=== PATIENT | male | born 1945 | race Caucasian/White ===

== ENCOUNTER 2021-10-13 14:19 | Outpatient (REF) | payer BC, SELFPAY ==
[2021-10-13 19:03] LABS: Abs Immature Grans 0.02 10^3/uL (0.0-0.06); Absolute Basophil Count 0.05 10^3/uL (0.0-0.2); Absolute Lymphocyte Count 1.65 10^3/uL (1.2-3.4); Absolute Monocyte Count 0.59 10^3/uL (0.1-0.8); Absolute Neutrophil Count 3.81 10^3/uL (1.2-6.7); Basophils % 0.8; Eosinophils % 1.6; HCT 45.1 % (40.0-50.0); HGB 15.9 g/dL (13.5-17.5); Immature Grans % 0.3; Lymphocytes % 26.5; MCH 32.4 pg (27.0-33.0); MCHC 35.3 % (32.0-36.0); MCV 92 fL (80-95); MPV 11.1 fL (8.0-11.0); Monocytes % 9.5; Neutrophils % 61.3; Platelet Count 154 10^3/uL (130-400); RBC 4.91 10^6/uL (4.36-5.78); RDW 11.7 % (11.8-14.1); RDW-SD 39.4 fL; WBC 6.22 10^3/uL (4.4-10.8)
== END 2021-10-13 14:20 | disposition home or self-care (01) ==
LOC: NCHCN 14:19
PROVIDERS: Visit Provider Internal Medicine
DX: Z00.00 Encounter for general adult medical examination without abnormal findings (principal); K21.9 Gastro-esophageal reflux disease without esophagitis; D69.6 Thrombocytopenia, unspecified
CPT/HCPCS: 85025

== ENCOUNTER 2023-10-29 18:26 | Outpatient (REF) | payer BC, SELFPAY ==
--- OUTSIDE RECORDS SUMMARY | 2023-10-29 18:28 | XMS_ITS | Encounter Summary ---
Author Organization [facility] Address [facility] [place] [address] Care Team Providers Care Missile Facilities Repairer Name Role Phone Basilio Bates MD Primary Care Provider Reason for Visit * Reason Comments Skin Check Encounter Details Date Type Department Care Team (Late st Contact Info) Description 08/07/2023 3:30 PM EDT Office Visit Dermatology at [facility] [address] [place] [address] Rich Crespo MD [facility] [place] [address] Seborrheic keratosis; Solar lentigo; Multiple benign nevi; Foster angioma; Seborrheic keratosis, inflamed; Seborrheic dermatitis Social History Tobacco Use Types Packs/Day Years Used Date Smoking Tobacco: Former Cigarettes Smokeless Tobacco: Never Comments:quit >40 years ago Alcohol Use Standard Drinks/Week Comments No 0 (1 standard drink = 0.6 oz pur e alcohol) Sex and Gender Information Value Date Recorded Sex Assigned at Male 12/29/2020 8:49 AM EDT Gender Identity Male 11/14/2019 5:36 AM EDT Sexual Orientation Straight 12/29/2020 8: 49 AM EDT documented as of this encounter Progress Notes * Barbara Almendarez RN - 08/07/2023 3:30 PM EDT Images from the original note were not included. DEPARTMENT OF DERMATOLOGY Medical Dermatology Clinic Provider: RICH CRESPO MD Patient's preferred name Gary Preferred contact method for results []myDH []Letter [x]Phone: Home or cell Detailed phone message OK? Yes Are there any other people with whom we may discuss your care? Krista - PAST MEDICAL HISTORY If no, type N. If yes, type date, location, treatment Melanoma No Dysplastic nevi No SCC No BCC No AKs Yes UV Exposure & Protection Sun Protection: No Other relevant past medical history (i.e. eczema, psoriasis, birthmarks, immunosuppression) FAMILY HISTORY If yes, details Melanoma No NMSC No Other relevant family history No SOCIAL HISTORY Occupation: Retired Hobbies: Other: Pre-Procedure Questions Details Allergy to lidocaine, epinephrine, Dermabond, chlorhexidine, or adhesives No Bleeding disorder or blood thinners No Pacemaker, defibrillator, deep brain stimulator, cochlear implant No History of Present Illness: Basilio Duff is a 77 y.o. Patient returns to clinic today for a full skin exam and he reports - Lesion on the left leg, itchy - Ears are itchy, using dermasmooth in the ears, helps sooth but does not fully relieve the itch Last visit at Dermatology: 11/29/2022 Last visit with this provider: Visit date not found Medications: Reviewed in eD-H Allergies: Reviewed in eD-H Skin Examination: Full skin examination: Patient asked to undress to their comfort level. Verbalized that the provider???s preference is that the patient remove all clothing and that the provider will not examine areas patient elects to keep covered. Patient elects to keep underwear on and have the following examined: scalp, hair, face, ears, neck, chest, axillae, abdomen, back, and upper and lower extremities. Genitalia and buttocks were not examined. Assessment/Plan #. Benign Appearing Nevi - Multiple, 0.3-0.5cm, medium-brown, evenly-pigmented macules and papules.All with regular pigment pattern on dermoscopy. No pigmented lesions suspicious for melanoma. - Benign. No treatment necessary. - Reassured about benign nature and natural history. #. Foster Angiomas - Multiple 0.2-0.4cm bright red, well-demarcated papules - Benign. No treatment necessary. - Reassured about benign nature and natural history. #. Seborrheic Keratoses - Multiple 0.4-1 cm, brown-black papules/plaques with waxy stuck on appearance - Benign. No treatment necessary. - Reassured about benign nature and natural history. #. Solar Lentigines - Blotchy pigmentation and telangiectasia on sun-exposed skin with subtle yellowish cobblestoned appearance. - Benign. No treatment necessary. - Reassured about benign nature and natural history. - Sun avoidance, protective clothing and the use of SPF 30+ sunscreen is advised. Observe closely for skin changes and call if such occurs. #. Irritated Seborrheic Keratosis - Verrucous stuck on papule with surrounding erythema on the leftmedial thigh - Benign, but symptomatic. Procedure Note: Procedure: Destruction of lesion(s) with cryotherapy. Number: 1 Location: as above Discussed procedure and expectations including risks (including risk of hypopigmentation) and benefits. Verbal consent obtained. Frozen with LN2, 15-30 second thaw time, TWICE. There were no complications; the patient tolerated the procedure well. Post-procedure expectations and wound care were reviewed. #. Seborrheic Dermatitis, scalp & face - Discussed etiology and treatment options including topicals. - Start Rx: Triamcinolone (Kenalog) 0.1% ointment: Apply topically to affected area(s) in the ears twice daily for up to 2 weeks. Take 1 week off and then repeat cycle as needed. RTC: 1 yr for FSE []Note routed to materials engineering technician []Recall placed in scheduling system [x]Appointment scheduled at checkout Scribe attestation: Brabara Almendarez RN has performed the documentation for this encounter in the presence of and acting as a scribe for RICH CRESPO MD. I performed the above scribed service and agree with the accuracy of the documentation in this encounter. Reviewed and signed by: RICH CRESPO MD Dermatology [facility] documented in this encounter Plan of Treatment Upcoming Encounters Date Type Department Care Team (Late st Contact Info) Description 08/05/2024 4:30 PM EDT Office Visit Dermatology at [facility] [address] [place] [address] Rich Crespo MD [facility] [place] [address] documented as of this encounter Visit Diagnoses Diagnosis Seborrheic keratosis Other seborrheic keratosis Solar lentigo Other dyschromia Multiple benign nevi Benign neoplasm of skin, site unspecified Foster angioma Nevus, non-neoplastic Seborrheic keratosis, inflamed Inflamed seborrheic keratosis Seborrheic dermatitis Seborrheic dermatitis, unspecified documented in this encounter Care Teams Missile Facilities Repairer Relationship Specialty Start Date End Date Basilio Bates MD [address] [place] [id number] PCP - General General Internal Medicine 09/19/19 documented as of this encounter
--- OUTSIDE RECORDS SUMMARY | 2023-10-29 18:28 | XMS_ITS | Encounter Summary ---
Author Organization [facility] [place] [address] Care Team Providers Care Master Data Analyst Name Role Phone Basilio Bates MD Primary Care Provider Reason for Referral * Audiology Exam (Routine) - Closed Specialty Diagnoses / Procedures Referred By Connie camp Referred To Contact Audiology Diagnoses Bilateral hearing loss, unspecified hearing loss type Basilio Bates MD [address] [place] [id number] [facility] [address] [place] [phone] Referral ID Status Reason Start Date Expiration Date V isits Requested Visits Authorized [id number] Closed Specialty Service Requested 06/14/2023 06/13/2024 1 1 Encounter Details Date Type Department Care Team (Latest Contact Info) Description 06/14/2023 Transcribe Orders eDH Incoming Referrals [phone] Basilio Bates MD [address] [place], [place] [id number] Bilateral hearing loss, unspecified hearing loss type (Primary Dx) Social History Tobacco Use Types Packs/Day Years [...] AM EDT documented as of this encounter Plan of Treatment Upcoming Encounters Date Type Department Care Team (Late st Contact Info) Description 08/05/2024 4:30 PM EDT Office Visit Dermatology at [facility] [address] [place] [address] Rich Ivory MD [facility] [place] [address] Scheduled Referrals Name Type Priority Associated Diagnoses Orde r Schedule Referral to Audiology Outpatient Referral Routine Bilateral hearing loss, unspecified hearing loss type Ordered: 06/14/2023 documented as of this encounter Visit Diagnoses Diagnosis Bilateral hearing loss, unspecified hearing loss type- Primary documented in this encounter Care Teams Master Data Analyst Relationship Specialty Start Date End Date Basilio Bates MD [address] [place] [phone] PCP - General General Internal Medicine 09/19/19 documented as of this encounter
--- OUTSIDE RECORDS SUMMARY | 2023-10-29 18:28 | XMS_ITS | Encounter Summary ---
Author Organization [facility] Address [facility] [place] [address] Care Team Providers Care Caddy/Caddie Supervisor Name Role Phone Basilio Bates MD Primary Care Provider [phone] Encounter Details Date Type Department Care Team (Latest Contact Info) Description 08/21/2023 Travel Social History Tobacco Use Types Packs/Day Years [...] 4:30 PM EDT Office Visit Dermatology at [facility] [address] [place] [address] Rich Ivory MD [facility] [address] [place] [address] documented as of this encounter Visit Diagnoses Not on filedocumented in this encounter Care Teams Caddy/Caddie Supervisor Relationship Specialty Start Date End Date Basilio Bates MD [address] [place] [phone] PCP - General General Internal Medicine 09/19/19 documented as of this encounter
--- OUTSIDE RECORDS SUMMARY | 2023-10-29 18:28 | XMS_ITS | Encounter Summary ---
Author Organization [facility] [facility] [place] [address] Care Team Providers Care Lining Feller Blindstitch Name Role Phone Basilio Bates MD Primary Care Provider [phone] Reason for Visit * Auth/Cert (Routine) Specialty Diagnoses / Procedures Referred By Connie camp Referred To Contact Diagnoses Alternating constipation and diarrhea 5 year diarrhea & constipation Procedures PRO COLONOSCOPY, DIAGNOSTIC PRO COLONOSCOPY, BIOPSY PRO COLONOSCOPY, REMV LESN, SNARE PRO ANESTH, LWR INTESTINE, NOS COLONOSCOPY,SCREENING (WRVU 3.26) Nicho Kennedy MD [facility] [place] [address] [facility] Referral ID Status Reason Start Date Expiration Date Visits Re quested Visits Authorized [id number] 1 1 Encounter Details Date Type Department Care Team (Late st Contact Info) Description 01/11/2023 8:05 AM EDT Anesthesia Event [place] [phone] Nato Emerson MD [facility] [place] [address] Anesthesia Record Procedure Summary Procedure Name Responsible Anesthesiologist Anesthesia Start Time Anesthesia Stop Time COLONOSCOPY, POLYPECTOMY, REMOVAL LESION BY SNARE (WRVU 4.57) (Trunk) Nato Emerson MD 01/11/23 0801/11/23 0846 Events Date Time Event Comment 01/11/2023 0753 0805 AN Verify 0805 Start 0805 An Start Data 0809 An Induction 0809 Anesthesia Ready 0846 Stop 1657 an stop data Meds Name Total IV Lidocaine 60 mg Propofol 50 mg Propofol INF 498.39 mg lactated ringers infusion 0 mL * Agents Name O2 Air N2O O2 Auxiliary Flowmeter 1 * Blood No blood administrations on file. Lines, Drains, and Airways Type Details Placement Removal PIV 01/11/23; 0741; 22 g auge; median cubital vein (antecubital fossa), right; socorro; 01/11/23; 0943 01/11/23 0741 by Shwetha Alston RN 01/11/23 0943 by Socorro Chery RN documented in this encounter Social History Tobacco Use Types Packs/Day Years [...] AM EDT documented as of this encounter OR Notes * Anesthesia Postprocedure Evaluation - Nato Emerson MD - 01/11/2023 4:58 PM EDT Department of Anesthesiology Post-procedure Note Patient: Basilio Duff Procedure Summary Date: 01/11/23 Room / Location: [facility] 3 / [facility] Anesthesia Start: 804 Anesthesia Stop: 08 Procedures: COLONOSCOPY, POLYPECTOMY, REMOVAL LESION BY SNARE (WRVU 4.57) (Trunk) COLONOSCOPY; W CONTROL OF BLEEDING, ANY METHOD (WRVU 4.66) Diagnosis: (5 year) (diarrhea & constipation) Surgeons: Nicho Kennedy MD Responsible Provider: Nato Emerson MD Anesthesia Type: MAC ASA Status: 2 All Anesthesia Providers: Anesthesiologist: Nato Emerson MD WELDER RAILCAR MECHANIC: Nixon Villanueva CRNA Vitals Value Taken Time BP 128/106 01/11/23 0920 Temp Pulse Resp 18 01/11/23 0920 SpO2 100 % 01/11/23 0925 Pain Level 0 01/11/23 0920 Vitals shown include unfiled device data. Patient Location: PACU/[facility] Level of Consciousness: Conscious but Sleepy Pain Management: Satisfactory Analgesia PONV: None Cardiovascular Status: At Baseline Respiratory Status: At Baseline Postoperative Fluid Status: Intravascular EUvolemia Possible Anesthetic Complications: NONE apparent at time of evaluation Final Primary Anesthesia Type: MAC (The anesthetic type performed was the same as planned.) Comments: * Anesthesia Preprocedure Evaluation - Nato Emerson MD - 01/11/2023 6:47 AM EDT Pre-Anesthesia Evaluation for: Basilio Duff a 77 y.o. male. Procedure(s): COLONOSCOPY,SCREENING (WRVU 3.26) Patient Active Problem List Diagnosis Date Noted ??? Sensorineural hearing loss, asymmetrical 07/15/2014 ??? SK (seborrheic keratosis) 11/17/2010 ??? Actinic keratoses 11/16/2010 ??? Acoustic neuroma 09/05/2010 ??? SNHL (sensory-neural hearing loss), asymmetrical 09/05/2010 Past Medical History: Diagnosis Date ??? Pneumonia ??? Right acoustic neuroma ??? Skin disease Past Surgical History: Procedure Laterality Date ??? PRO COLONOSCOPY, REMV LESN, SNARE N/A 09/28/2017 COLONOSCOPY, POLYPECTOMY, REMOVAL LESION BY SNARE (WRVU 4.67) performed by Francisco Garland MD at [facility] ENDOSCOPY Social History Tobacco Use ??? Smoking status: Former Types: Cigarettes ??? Smokeless tobacco: Never ??? Tobacco comments: quit >40 years ago Substance Use Topics ??? Alcohol use: No Social History Substance and Sexual Activity Drug Use No Allergies Allergen Reactions ??? Other [Unclassified Drug] Tree's in the spring Medications: MAR and/or home medications have been reviewed. Physical Exam: Preprocedure Vitals Current as of 01/11/23 0647 No BP, pulse, respiration, SpO2, or temperature recorded. Height: Weight: BMI: IBW: Airway Assessment: Mallampati: II TM distance: <3 FB Neck ROM: full Cardiovascular Assessment: Rhythm: regular Rate: normal Pulmonary Assessment: breath sounds clear to auscultation Dental Assessment: - normal exam Misc Assessment: Last Filed Perioperative Cognitive Screening None Anesthesia Plan: ASA 2 MAC, with a(n) intravenous induction Addendum 01/11/2023 (MD Idania): 77yo for colo. SAVANNA (CPAP). No interval change. Risks/plan reviewed. Pt requests to proceed Region - Other Informed Consent: Anesthetic plan and risks discussed with patient and spouse. Plan discussed with WELDER RAILCAR MECHANIC. Anesthesia Screening documented in this encounter Plan of Treatment Upcoming Encounters Date Type Department Care Team (Late st Contact Info) Description 08/05/2024 4:30 PM EDT Office Visit Dermatology at [address] [place] [address] Rich Ivory MD [facility] [address] [place] [address] documented as of this encounter Visit Diagnoses Not on filedocumented in this encounter Administered Medications Inactive Administered Medications - up to 3 most recent administrations Medication Order MAR Action Action Date Dose Rate Site lactated ringers infusion 100 mL/hr, Intravenous, CONTINUOUS, Starting on Anahy 01/11/23 at 0800, Until Anahy 01/11/23 at 0942, Endoscopy (Day of Procedure) Restarted 01/11/2023 8:09 AM EDT New Bag 01/11/2023 7:41 AM EDT 100 mL/hr 100 mL/hr lidocaine (pf) (Xylocaine) (20 mg/mL) 2% injection syringe Intravenous, PRN, Starting on Anahy 01/11/23 at 0809, Until Anahy 01/11/23 at 1658, Anesthesia Intra-op, Routine Given 01/11/2023 8:09 AM EDT 60 mg propofoL (Diprivan) (10 mg/mL) infusion Intravenous, CONTINUOUS PRN, Starting on Anahy 01/11/23 at 0809, Until Anahy 01/11/23 at 1658, Anesthesia Intra-op, Routine New Bag 01/11/2023 8:09 AM EDT 150 mcg/kg/min 80.82 mL/hr propofoL (Diprivan) 10 mg/mL bolus injection (Anesthesia) Intravenous, PRN, Starting on Anahy 01/11/23 at 0809, Until Anahy 01/11/23 at 1658, Anesthesia Intra-op Given 01/11/2023 8:09 AM EDT 50 mg documented in this encounter Care Teams Lining Feller Blindstitch Relationship Specialty Start Date End Date Basilio Bates MD [address] [place] [id number] PCP - General General Internal Medicine 09/19/19 documented as of this encounter
--- OUTSIDE RECORDS SUMMARY | 2023-10-29 18:28 | XMS_ITS | Encounter Summary ---
Author Organization [facility] Address [facility] [place] [address] Care Team Providers Care Retread Technician Name Role Phone Basilio Bates MD Primary Care Provider [phone] Encounter Details Date Type Department Care Team (Latest Contact Info) Description 08/14/2023 Travel Social History Tobacco Use Types Packs/Day [...] 4:30 PM EDT Office Visit Dermatology at [facility] [address] [place] [address] Rich Ivory MD [facility] [place] [address] documented as of this encounter Visit Diagnoses Not on filedocumented in this encounter Care Teams Retread Technician Relationship Specialty Start Date End Date Basilio Bates MD [address] [place] [phone] PCP - General General Internal Medicine 09/19/19 documented as of this encounter
--- OUTSIDE RECORDS SUMMARY | 2023-10-29 18:28 | XMS_ITS | Clinical Summary ---
Author Organization [facility] [place] [address] Care Team Providers Care Ict Systems Test Engineer Name Role Phone Basilio Bates MD Primary Care Provider Allergies Active Allergy Reactions Criticality Noted Date Comments Unclassified Drug 06/25/2015 Tree's in the spring Medications Medication Sig Dispensed Refills Start Date End Date Status aspirin 325 mg tablet Take 325 mg by mouth daily. Active multivitamin (THERAGRAN) Tablet Take 1 tablet by mouth daily. Active tacrolimus (PROTOPIC) 0.1 % Ointment Apply topically 1-2 times daily to affected areas 100 g 12/02/2017 Active fluocinolone (DERMA-SMOOTHE) 0.01 % OilIndications:Scalp psoriasis Apply topically to the scalp nightly as needed 120 mL 07/11/2018 Active atorvastatin (LIPITOR) 20 mg Tablet TK 1 T PO QD 3 07/08/2018 Active triamcinolone (Kenalog) 0.1 % Ointment Apply topically to affected area(s) in the ears twice daily for up to 2 weeks. Take 1 week off and then repeat cycle as needed. 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 SNHL (sensory-neural hearing loss), asymmetrical 09/05/2010 Encounters Date Type Department Care Team Description 09/10/2023 10:30 AM EDT Office Visit Audiology at [address] [address] Amparo Ma, HALEIGH Asymmetric SNHL (sensorineural hearing loss) 09/10/2023 9:30 AM EDT Office Visit Audiology at [address] [phone] Jacqueline Estevez, PhD Asymmetric SNHL (sensorineural hearing loss); Negative pressure of left middle ear with type C tympanogram curve 09/10/2023 Travel 09/03/2023 Travel 08/21/2023 2:15 PM EDT [place] [phone] Beny Smith MD Glaucoma suspect of both eyes; Nuclear sclerotic cataract of both eyes 08/21/2023 Travel 08/14/2023 Travel 08/07/2023 3:30 PM EDT Office Visit Dermatology at [facility] [address] [place] [phone] Rich Ivory MD Seborrheic keratosis; Solar lentigo; Multiple benign nevi; Foster angioma; Seborrheic keratosis, inflamed; Seborrheic dermatitis 08/07/2023 Travel 08/01/2023 Travel from Last 3 Months Immunizations Name Administration Dates Next Due Hepatitis A, Unspecified Formulation 11/17/2008 Typhoid Live, Oral 11/17/2008 Family History Relation Status Comments Daughter Other Amblyopia (left eye?) Social History Tobacco Use Types Packs/Day Years [...] Orientation Straight 12/29/2020 8: 49 AM EDT Last Filed Vital Signs Vital Sign Reading Time Taken Comments Blood Pressure 128/106 01/11/2023 9:20 AM EDT Pulse 76 01/11/2023 7:33 AM EDT Temperature 36.4 ??C (97.5 ??F) 01/11/2023 7:33 AM ED T Respiratory Rate 18 01/11/2023 9:20 AM EDT Oxygen Saturation 100% 01/11/2023 9:20 AM EDT Inhaled Oxygen Concentration - - Weight 89.8 kg (198 lb) 01/11/2023 7:33 AM EDT Height 177.8 cm (5' 10) 01/11/2023 7:33 AM EDT Body Mass Index 28.41 01/11/2023 7:33 AM EDT Plan of Treatment Upcoming Encounters Date Type Department Care Team (Late st Contact Info) Description 08/05/2024 4:30 PM EDT Office Visit Dermatology at [facility] [address] [place] [address] Rich Ivory MD [facility] [place] [address] Health Maintenance Due Date Last Done Comments CT Colonography 1945 FIT DNA 1945 FIT 1945 Sigmoidoscopy 1945 Hepatitis C Screening 1964 Tdap adult 1965 Tetanus vaccine 1965 Zoster vaccine (1 of 2) 1996 Advance Directive 2001 Pneumoccocal Vaccine: 65+ (1 of 1 - PCV) 12/23/2011 Covid-19 Vaccine ( - 2022-2 4 season) 2022 Influenza (Flu) vaccine (1 o f 1 - Influenza standard series) 11/25/2023 Colonoscopy 01/12/2028 01/11/2023, 12/24, 01/11/2023, Additional history exists Colorectal Cancer Screening 01/12/2028 Sigmoidoscopy (10 year) with FIT yearly 01/11/2033 01/11/2023, 01/11/2023, 01/11/2023, Additional history exists Medical Devices Implanted Type Area Wire Frame Dipper Device Identifier Shelf Expiration Date Model / Serial / Lot Clip [id number] Endoscopic Ligation Resolution 360 Each ([id number]) - [id number] Implanted:Qty : 3 on 01/11/2023 by Nicho Kennedy MD at [facility] IMPLANTS Transverse Colon [employer] - BRACE INTE [id number] / / Procedures Procedure Name Priority Date/Time Associated Diagnosis Comments COMPREHENSIVE HEARING TEST Routine 09/10/2023 9:25 AM EDT OCT OPTIC NERVE - OU - BOTH EYES Routine 08/21/2023 3:09 PM EDT Glaucoma suspect of both eyes COLONOSCOPY Routine 01/11/2023 7:59 AM EDT from Last 3 Months or Most Recently Relevant to Health Maintenance Results * Comprehensive hearing test (09/10/2023 9:25 AM EDT) 09/10/2023 9:25 AM EDT Narrative AUDBASE COMP - 09/10/2023 9:25 AM EDT Audiologic monitoring of this hearing loss. Hearing aid management with primary Garage Hand Haleigh Lopez Procedure Note Unknown - 09/10/2023 Audiologic monitoring of this hearing loss. Hearing aid management with primary Garage Hand Haleigh Lopez Jacqueline Estevez PhD AUDIOLOGY SERVICES ORDERABLES AUDBASE COMP * Oct Optic Nerve - OU - Both Eyes (08/21/2023 3:09 PM EDT) Anatomical Region Laterality Modality Other Narrative 08/21/2023 3:09 PM EDT Right Eye Quality was good. Left Eye Quality was good. Notes Optic nerve report G = 76 OD G = 82 OS Borderline OD Within normal limits OS Interpretation: abnormal OD/borderline OS Beny Smith MD OPHTHALMOLOGY SERVIC ES ORDERABLES * COLONOSCOPY (01/11/2023 7:59 AM EDT) Pathologist [facility] COLONOSCOPY [facility] Procedure Date: 01/11/2023 7:59 AM ? Patient Name: Basilio Duff ? Date of : 1945 ? Age: 77 ? Order #: [id number] ? Instrument Name: [id number] ? Procedure: ? Colonoscopy Indications: ? High risk colon cancer ? surveillance: Personal history of ? small colonic polyps, New c Providers: ? Nicho Kennedy, Amparo Olivares, ? Jose De Jesus Bailey RN, Gagan Garcia MD: ?Basilio Bates MD Medicines: ? Monitored Anesthesia Care Complications: ? No immediate complications. Procedure: ? Pre-Anesthesia Assessment: ? - Prior to the procedure, a History ? and Physical was performed, and ? patient medications, allergies and ? sensitivities were reviewed. The ? patient's tolerance of previous ? anesthesia was reviewed. ? - The risks and benefits of the ? procedure and the sedation options ? and risks were discussed with the ? patient. All questions were ? answered and informed consent was ? obtained. ? - Patient identification and ? proposed procedure were verified ? prior to the procedure by the ? physician, the nurse, the ? bond broker and the technician's helper. The ? procedure was verified in the ? pre-procedure area in the endoscopy ? suite. ? - Pre-procedure physical ? examination revealed no ? contraindications to sedation. ? - ASA Grade Assessment: III - A ? patient with severe systemic ? disease. ? - After reviewing the risks and ? benefits, the patient was deemed in ? satisfactory condition to undergo ? the procedure. ? - Monitored anesthesia care under ? the supervision of a HUMAN CAPITAL ANALYST was ? determined to be medically ? necessary for this procedure based ? on age 65 or older and severe ? comorbidity (greater than ASA Grade ? II). ? The procedure, indications, ? benefits, risks and alternatives ? were explained to the patient. ? Specifically discussed were ? potential complications including, ? but not limited to, bleeding, ? perforation, infection, missing a ? cancer, and adverse medication ? reactions. The patient was placed ? in the left lateral decubitus ? position, and a digital rectal exam ? was performed. The Colonoscope was ? inserted in the anus and under ? direct visualization, advanced to ? the terminal ileum. Careful ? inspection was made as the ? colonoscope was withdrawn. The ? colonoscopy was performed without ? difficulty. The patient tolerated ? the procedure well. The quality of ? the bowel preparation was evaluated ? using the BBPS (Hurst Bowel ? Preparation Scale) with scores of: ? Right Colon = 3 (entire mucosa seen ? well with no residual staining, ? small fragments of stool or opaque ? liquid), Transverse Colon = 3 ? (entire mucosa seen well with no ? residual staining, small fragments ? of stool or opaque liquid) and Left ? Colon = 3 (entire mucosa seen well ? with no residual staining, small ? fragments of stool or opaque ? liquid). The total BBPS score ? equals 9. The quality of the bowel ? preparation was excellent. Scope ? withdrawal time was 12 minutes. ? Findings: ? The terminal ileum appeared normal. ? A 4 mm polyp was found in the transverse colon. The ? polyp was Bonnie classification IIa (superficial, ? elevated). The polyp was removed with a cold snare. ? Resection and retrieval were complete. There was mild ? persistent oozing after polypectomy, likely due to ? full dose aspirin use. To stop bleeding after the ? polypectomy, three hemostatic clips were successfully ? placed (MR conditional). Clip masonry installer: [employer]. There was no bleeding at the end of the ? procedure. ? A few small-mouthed diverticula were found in the ? sigmoid colon. ? Internal hemorrhoids were found during retroflexion. ? The hemorrhoids were small. ? Moderate Sedation: ? Not applicable - See Anesthesia documentation Impression: ?- The examined portion of the ileum ? was normal. ? - One 4 mm polyp in the transverse ? colon, removed with a cold snare. ? Resected and retrieved. Clips (MR ? conditional) were placed. Clip ? masonry installer: [employer]. ? - Diverticulosis in the sigmoid ? colon. ? - Internal hemorrhoids. Recommendation: ?- Await polyp pathology results. ? - OK to continue full-dose aspirin. ? Monitor for post-polypectomy ? bleeding. ? - Next surveillance exam would be ? due at age 84 - 87. Revisit role ? for further colonoscopies pending ? overall health status at that time. ? Attending Participation: ? I personally performed the entire procedure. ? Nicho Kennedy, 01/11/2023 8:50:23 AM Number of Addenda: 0 Note Initiated On: 01/11/2023 7:59 AM PROVATION 01/11/2023 7:59 AM EDT Basilio Bates MD GENERAL SURGICAL ORD ERABLES PROVATION from Last 3 Months or Most Recently Relevant to Health Maintenance Care Teams Ict Systems Test Engineer Relationship Specialty Start Date End Date Basilio Bates MD [address] [place] [address] PCP - General General Internal Medicine 09/19/19
--- OUTSIDE RECORDS SUMMARY | 2023-10-29 18:28 | XMS_ITS | Encounter Summary ---
Author Organization [facility] Address [facility] [place] [address] Care Team Providers Care Health Informatics Advisor Name Role Phone Basilio Bates MD Primary Care Provider Encounter Details Date Type Department Care Team (Latest Contact Info) Description 08/01/2023 Travel Social History Tobacco Use Types Packs/Day [...] 4:30 PM EDT Office Visit Dermatology at [facility] [address] [place] [address] Rich Ivory MD [facility] [address] [place] [address] documented as of this encounter Visit Diagnoses Not on filedocumented in this encounter Care Teams Health Informatics Advisor Relationship Specialty Start Date End Date Basilio Bates MD [address] [place] [address] PCP - General General Internal Medicine 09/19/19 documented as of this encounter
--- OUTSIDE RECORDS SUMMARY | 2023-10-29 18:28 | XMS_ITS | Encounter Summary ---
Author Organization [facility] Address [facility] [place] [address] Care Team Providers Care Stereoptician Name Role Phone Basilio Bates MD Primary Care Provider [phone] Encounter Details Date Type Department Care Team (Latest Contact Info) Description 09/10/2023 Travel Social History Tobacco Use Types Packs/Day [...] 4:30 PM EDT Office Visit Dermatology at [facility] [address] [place] [address] Rich Ivory MD [facility] [address] [address] documented as of this encounter Visit Diagnoses Not on filedocumented in this encounter Care Teams Stereoptician Relationship Specialty Start Date End Date Basilio Bates MD [address] [place] [address] PCP - General General Internal Medicine 09/19/19 documented as of this encounter
--- OUTSIDE RECORDS SUMMARY | 2023-10-29 18:28 | XMS_ITS | Encounter Summary ---
[place] [address] Care Team Providers Care Escort Patients Name Role Phone Basilio Bates MD Primary Care Provider [phone] Encounter Details Date Type Department Care Team (Late st Contact Info) Description 09/10/2023 10:30 AM EDT Office Visit Audiology at [address] [address] Amparo Ma AUD [facility] [place] [address] Asymmetric SNHL (sensorineural hearing loss) Social History Tobacco Use Types Packs/Day Years [...] as of this encounter Progress Notes * Amparo Ma AUD - 09/10/2023 10:30 AM EDT AUDIOLOGY Basilio Duff was seen today for a hearing aid check following a hearing re- evaluation. History ispositive for asymmetric sensorineural hearing loss. Please refer to the audiogram and associated note for details on otologic symptoms and hearing test results. Mr. Duff reported that the hearing instruments are working great. Understanding speech in background noise can be challenging. The following actions were taken: Otoscopy showed clear ear canals bilaterally. Both devices were cleaned and a listening check indicated that they were functioning. Domes and waxfilters were replaced. Hearing aid programming was adjusted so that the aided responses approximated prescriptive targets for speech without exceeding MPO targets. Mr. Duff was subjectively satisfied with the sound quality of the aid, and loudness discomfort was denied. Simulated real ear measures were obtained and function of the directional microphones was verified. The limitations of hearing aids in background noise were discussed. The benefits of an assistive listening device such as a Phonak Vinayak On iN 2 for improving speech understanding in noisy environments, in rooms with poor acoustics and when listening to speech from a distance were discussed. Mr. Duff will check his insurance to find out if there is coverage for this type of accessory. RECOMMENDATIONS Annual hearing evaluation and hearing aid check, sooner if concerns arise in the interim. Helene Lopez [place] [address] ; AMPLIFICATION EQUIPMENT LIST: HEARING AID RIGHT LEFT Make/Model/Style Phonak CROS P 13 Phonak Audeo P90 13 Casing Color Silver Silver Serial Number [id number] Battery Size 13 13 Invoice number/date [id number] 07/22/2021 [id number] 07/22/2021 Other Comments PROGRAM/SETTINGS Fitting Algorithm DSL-Adult DSL-Adult Verification Method REM REM SII (w/65 dBSLP) unaided/aided Programs Autosense OS Other Comments >active features: CROS Volume >disabled features: >active features: VC >disabled features: [place] WARRANTY Original Fit Date 08/09/2021 08/09/2021 Current Status 10/19/2024 10/19/2024 EARMOLD (if BTE JOHNSON) Lab Earmold / Slim tube / LORE / Dome specifics #1 CROS tube, medium open dome #1M 5 director of marketing communications/ small vented dome Impression Date Invoice number/date Other Comments Cerustop wax guard ACCESSORIES Make/Model (color) Serial Number Warranty date Invoice number/date Settings Other Comments documented in this encounter Plan of Treatment Upcoming Encounters Date Type Department Care Team (Late st Contact Info) Description 08/05/2024 4:30 PM EDT Office Visit Dermatology at [address] [place] [address] Rich Ivory MD [facility] [place] [address] documented as of this encounter Visit Diagnoses Diagnosis Asymmetric SNHL (sensorineural hearing loss) Sensorineural hearing loss, asymmetrical documented in this encounter Care Teams Escort Patients Relationship Specialty Start Date End Date Basilio Bates MD [address] [place] [address] PCP - General General Internal Medicine 09/19/19 documented as of this encounter
--- OUTSIDE RECORDS SUMMARY | 2023-10-29 18:28 | XMS_ITS | Encounter Summary ---
Author Organization [facility] Address [facility] [place] [address] Care Team Providers Care Farm Agent Name Role Phone Basilio Bates MD Primary Care Provider Encounter Details Date Type Department Care Team (Latest Contact Info) Description 08/07/2023 Travel Social History Tobacco Use Types Packs/Day [...] 4:30 PM EDT Office Visit Dermatology at [facility] [address] [place] [address] Rich Ivory MD [facility] [place] [address] documented as of this encounter Visit Diagnoses Not on filedocumented in this encounter Care Teams Farm Agent Relationship Specialty Start Date End Date Basilio Bates MD [address] [place] [address] PCP - General General Internal Medicine 09/19/19 documented as of this encounter
--- OUTSIDE RECORDS SUMMARY | 2023-10-29 18:28 | XMS_ITS | Encounter Summary ---
[place] [address] Care Team Providers Care Senior Advocate Name Role Phone Basilio Bates MD Primary Care Provider [phone] Reason for Visit * Reason Comments Glaucoma Suspect Cataract Encounter Details Date Type Department Care Team (Late st Contact Info) Description 08/21/2023 2:15 PM EDT Office [place] [address] Beny Smith MD [facility] [place] [address] Glaucoma suspect of both eyes; Nuclear sclerotic cataract of both eyes Social History Tobacco Use Types Packs/Day Years [...] as of this encounter Progress Notes * Beny Smith MD - 08/21/2023 2:15 PM EDT BRAO OD: stale exam Cataract OU: Early nuclear sclerosis OU with mild symptoms. Plan: Will continue yearly follow up, see in one year for HVF OU, Nellie Fast. documented in this encounter Plan of Treatment Upcoming Encounters Date Type Department Care Team (Late st Contact Info) Description 08/05/2024 4:30 PM EDT Office Visit Dermatology at [facility] [address] [place] [address] Rich Ivory MD [facility] [address] [address] documented as of this encounter Procedures Procedure Name Priority Date/Time Associated Diagnosis Comments OCT OPTIC NERVE - OU - BOTH EYES Routine 08/21/2023 3:09 PM EDT Glaucoma suspect of both eyes documented in this encounter Results * Oct Optic Nerve - OU - Both Eyes (08/21/2023 3:09 PM EDT) Anatomical Region Laterality Modality Other Narrative 08/21/2023 3:09 PM EDT Right Eye Quality was good. Left Eye Quality was good. Notes Optic nerve report G = 76 OD G = 82 OS Borderline OD Within normal limits OS Interpretation: abnormal OD/borderline OS Beny Smith MD OPHTHALMOLOGY SERVIC ES ORDERABLES documented in this encounter Visit Diagnoses Diagnosis Glaucoma suspect of both eyes Preglaucoma, unspecified Nuclear sclerotic cataract of both eyes Senile nuclear sclerosis documented in this encounter Care Teams Senior Advocate Relationship Specialty Start Date End Date Basilio Bates MD [address] [place] [address] PCP - General General Internal Medicine 09/19/19 documented as of this encounter
--- OUTSIDE RECORDS SUMMARY | 2023-10-29 18:28 | XMS_ITS | Encounter Summary ---
Author Organization [facility] Address [facility] [place] [address] Care Team Providers Care Front Office Java Developer Name Role Phone Basilio Bates MD Primary Care Provider Encounter Details Date Type Department Care Team (Latest Contact Info) Description 09/03/2023 Travel Social History Tobacco Use Types Packs/Day [...] 4:30 PM EDT Office Visit Dermatology at [facility] [address] [place] [address] Rich Ivory MD [facility] [address] [place] [address] documented as of this encounter Visit Diagnoses Not on filedocumented in this encounter Care Teams Front Office Java Developer Relationship Specialty Start Date End Date Basilio Bates MD [address] [place] [address] PCP - General General Internal Medicine 09/19/19 documented as of this encounter
--- OUTSIDE RECORDS SUMMARY | 2023-10-29 18:28 | XMS_ITS | Encounter Summary ---
Author Organization [facility] Address [facility] [place] [address] Care Team Providers Care Spool Hauler Name Role Phone Basilio Bates MD Primary Care Provider Reason for Visit * Audiology Exam (Routine) - Closed Specialty Diagnoses / Procedures Referred By Connie camp Referred To Contact Audiology Diagnoses Bilateral hearing loss, unspecified hearing loss type Basilio Bates MD [address] [address] [facility] [address] [place] [phone] Referral ID Status Reason Start Date Expiration Date V isits Requested Visits Authorized [id number] Closed Specialty Service Requested 06/14/2023 06/13/2024 1 1 Encounter Details Date Type Department Care Team (Late st Contact Info) Description 09/10/2023 9:30 AM EDT Office Visit Audiology at [address] [address] Jacqueline Estevez, PhD [facility] [place] [address] Asymmetric SNHL (sensorineural hearing loss); Negative pressure of left middle ear with type C tympanogram curve Social History Tobacco Use Types Packs/Day Years [...] as of this encounter Progress Notes * Jacqueline Estevez, PhD - 09/10/2023 9:30 AM EDT AUDIOLOGY SECTION ADULT AUDIOLOGIC EVALUATION [place], [place] Basilio Duff, 77 y.o., male was seen for an audiologic evaluation 09/10/2023. Referred by Basilio Bates MD Reason: Hearing loss Please refer to the Procedures tab in the EMR for history, impression, and recommendations. Jacqueline Estevez, [place] [address] ; documented in this encounter Plan of Treatment Upcoming Encounters Date Type Department Care Team (Late st Contact Info) Description 08/05/2024 4:30 PM EDT Office Visit Dermatology at [facility] [address] [place] [address] Rich Ivory MD [facility] [address] [place] [address] documented as of this encounter Procedures Procedure Name Priority Date/Time Associated Diagnosis Comments COMPREHENSIVE HEARING TEST Routine 09/10/2023 9:25 AM EDT documented in this encounter Results * Comprehensive hearing test (09/10/2023 9:25 AM EDT) 09/10/2023 9:25 AM EDT Narrative AUDBASE COMP - 09/10/2023 9:25 AM EDT Audiologic monitoring of this hearing loss. Hearing aid management with primary Elementary Math Tutor Helene Lopez Procedure Note Unknown - 09/10/2023 Audiologic monitoring of this hearing loss. Hearing aid management with primary Elementary Math Tutor Helene Lopez Jacqueline Estevez PhD AUDIOLOGY SERVICES ORDERABLES AUDBASE COMP documented in this encounter Visit Diagnoses Diagnosis Asymmetric SNHL (sensorineural hearing loss) Sensorineural hearing loss, asymmetrical Negative pressure of left middle ear with type C tympanogram curve documented in this encounter Care Teams Spool Hauler Relationship Specialty Start Date End Date Basilio Bates MD [address] [address] PCP - General General Internal Medicine 09/19/19 documented as of this encounter
--- OUTSIDE RECORDS SUMMARY | 2023-10-29 18:29 | XMS_ITS | Encounter Summary ---
Author Organization [facility] Address [facility] [place] [address] Care Team Providers Care Icing Machine Operator Name Role Phone Basilio Bates MD Primary Care Provider Encounter Details Date Type Department Care Team (Latest Contact Info) Description 08/22/2022 Travel Social History Tobacco Use Types Packs/Day [...] 4:30 PM EDT Office Visit Dermatology at [facility] [address] [place] [address] Rich Ivory MD [facility] [address] [place] [address] documented as of this encounter Visit Diagnoses Not on filedocumented in this encounter Care Teams Icing Machine Operator Relationship Specialty Start Date End Date Basilio Bates MD [address] [place] [address] PCP - General General Internal Medicine 09/19/19 documented as of this encounter
--- OUTSIDE RECORDS SUMMARY | 2023-10-29 18:29 | XMS_ITS | Encounter Summary ---
[place] [address] Care Team Providers Care Contract Law Specialist Name Role Phone Basilio Bates MD Primary Care Provider Reason for Visit * Audiology Exam (Routine) - Denied Specialty Diagnoses / Procedures Referred By Connie camp Referred To Contact Audiology Procedures HEARING AID FITTING Basilio Bates MD [address] [place] [address] Amparo Ma [facility] [place] [address] Referral ID Status Reason Start Date Expiration Date Visits Re quested Visits Authorized [id number] Denied 09/09/2020 09/09/2021 1 0 Encounter Details Date Type Department Care Team (Late st Contact Info) Description 09/09/2020 4:00 PM EDT Office Visit Audiology at [address] [phone] Amparo Ma [facility] [place] [address] Asymmetric SNHL (sensorineural hearing loss) Social History [...] of this encounter Progress Notes * Amparo Ma, AUD - 09/09/2020 4:00 PM EDT AUDIOLOGY Basilio Duff was seen today for fitting of a BICROS hearing aid system. He was accompanied by hiswife. History is positive for asymmetric sensorineural hearing loss, R>L. Otoscopy showed ear canals. Left hearing aid programming was adjusted so that the aided responses approximated prescriptive targets for speech without exceeding MPO targets. Mr. Duff was subjectively satisfied with the sound quality of the aid, and loudness discomfort was denied. Function and trans parency of the CROS transmitter was verified. Mr. Duff was instructed on use, care and maintenance of the hearing instruments, including instruction on hearing aid insertion/removal, cleaning and batteries. Warranty coverage, and the 30-day trial period were discussed. A review of expectations and the hearing aid adjustment process were also d iscussed. Mr. Duff was able to insert and manipulate the instruments with relative ease. The left hearing aid was paired to his cell phone; unable to practice with the phone streaming due to lack ofservice in the clinic. The Sunrise hearing aid jeanette was downloaded to his cell phone and the hearing instruments were successfully paired to it. Mr. Duff will be seen in 2-4 weeks for a follow-up hearing aid check and orientation. Tiffany Leigh [place] [address] ; AMPLIFICATION EQUIPMENT LIST: HEARING AID RIGHT LEFT Make/Model/Style Hasmukh CROS AI 2000 R Hasmukh Tremaine AI 2000 LORE R Casing Color Silver Silver Serial Number [id number] Battery Size Rechargeable Rechargeable Invoice number/date [id number] 08/26/2020 [id number] 08/26/2020 Other Comments ? PROGRAM/SETTINGS ? Fitting Algorithm ?? DSL-Adult Verification Method REM REM SII (w/65 dBSLP) unaided/aided ? Programs ?? P1= Normal Other Comments VC enabled Bottom push button= on/off VC enabled Bottom push button= on/off JOHNSON WARRANTY ? Original Fit Date 09/09/2020 09/09/2020 Current Status 11/26/2023 11/26/2023 EARMOLD (if BTE JOHNSON) ? Lab ? Earmold / Slim tube / LORE / Dome specifics Length 2 CROS tubing/ 7 mm open dome Length 2 50 gain machine dyer/ 7 mm open dome Impression Date ? Invoice number/date ? Other Comments ? ACCESSORIES ? Make/Model (color) Route Sales Representative ?? Serial Number [id number] ?? Warranty date 11/25/2021 ?? Invoice number/date [id number] 08/26/2020 ?? Settings ? Other Comments ? HEARING AID(S): ?? HEARING AID ?? RIGHT ?? LEFT ?? STYLE ?? BICROS Transmitter ?? RITE ?? MAKE/MODEL ?? Phonak ?? Phonak Audeo S Smart V ?? CASING COLOR ?? Mocha Taupe ?? Same ?? SERIAL NUMBER ?? [id number]? [id number] ?? BATTERY SIZE ?? 312 ?? 312 ?? BATTERY CLUB ? PROGRAM/SETTINGS ? FITTING ALGORITHM ?? N/A ?? DSL-Adult ?? VERIFICATION METHOD ?? N/A ?? REM ?? PROGRAMS ? Soundflow ?? DISABLED FEATURES ? OTHER COMMENTS ?? VC enabled ? HEARING AID WARRANTY ? ORIGINAL FIT DATE ?? 10/20/10 ?? 10/20/10 ?? CURRENT STATUS ?? 08.31.2017 Hasmukh All-Make?? 08.31.2017 Hasmukh All-Make?? EARMOLD (if BTE JOHNSON) ? LAB ?? Phonak ? EM (Style/material/vent/color) ?? CROS-Tip ? IMPRESSION DATE ?? 08/26/10 ? SERIAL / INVOICE # ?? Invoice #: [id number] ??03/16/16 ?? Serial #: [id number]? TUBE/LORE (length/dome/machine dyer size) ?? Length 2 tube ?? Length 2 standard machine dyer/ medium open phonak dome ?? OTHER / COMMENTS ? Assistive Listening Devices/Wireless Accessories? Device? Phonak iCom ? Serial #? [id number] ? Fit Date? 11/17/10 ? Warranty Exp.? 01/29/12 ? documented in this encounter Plan of Treatment Upcoming Encounters Date Type Department Care Team (Late st Contact Info) Description 08/05/2024 4:30 PM EDT Office Visit Dermatology at [facility] [address] [place] [address] Rich Ivory MD [facility] [place] [address] documented as of this encounter Visit Diagnoses Diagnosis Asymmetric SNHL (sensorineural hearing loss) Sensorineural hearing loss, asymmetrical documented in this encounter Care Teams Contract Law Specialist Relationship Specialty Start Date End Date Basilio Bates MD [address] [place] [address] PCP - General General Internal Medicine 09/19/19 documented as of this encounter
--- OUTSIDE RECORDS SUMMARY | 2023-10-29 18:29 | XMS_ITS | Encounter Summary ---
Author Organization [facility] [place] [address] Care Team Providers Care Turbine Room Attendant Name Role Phone Uvaldo Aranda DO Primary Care Provider [phone] Encounter Details Date Type Department Care Team (Late st Contact Info) Description 08/26/2018 10:30 AM EDT Office Visit Audiology at [address] [address] Amparo Ma AUD [facility] [place] [address] Asymmetric SNHL (sensorineural hearing loss); Tinnitus, bilateral Social History Tobacco Use Types Packs/Day Years [...] Progress Notes * Amparo Ma AUD - 08/26/2018 10:30 AM EDT [place] [address] Basilio Duff was seen today for an audiologic evaluation. Please refer to audiogram under procedures for details on history, results and recommendations. Helene Lopez [place] [address] ; documented in this encounter Plan of Treatment Upcoming Encounters Date Type Department Care Team (Late st Contact Info) Description 08/05/2024 4:30 PM EDT Office Visit Dermatology at [facility] [address] [place] [address] iRch Ivory MD [facility] DR [place] [address] documented as of this encounter Procedures Procedure Name Priority Date/Time Associated Diagnosis Comments COMPREHENSIVE HEARING TEST Routine 08/26/2018 10:44 AM EDT documented in this encounter Results * Comprehensive hearing test (08/26/2018 10:44 AM EDT) 08/26/2018 10:4 4 AM EDT Narrative AUDBASE COMP - 08/26/2018 10:44 AM EDT BICROS hearing aid check as scheduled Procedure Note Unknown - 08/26/2018 BICROS hearing aid check as scheduled Unknown AUDIOLOGY SERVICES O RDERABLES AUDBASE COMP documented in this encounter Visit Diagnoses Diagnosis Asymmetric SNHL (sensorineural hearing loss) Sensorineural hearing loss, asymmetrical Tinnitus, bilateral Unspecified tinnitus documented in this encounter Care Teams Turbine Room Attendant Relationship Specialty Start Date End Date Uvaldo Aranda DO [address] [place] [address] JAELYN Bacon [phone] PCP - General General Internal Medicine 08/22/1808/25 documented as of this encounter
--- OUTSIDE RECORDS SUMMARY | 2023-10-29 18:29 | XMS_ITS | Encounter Summary ---
Author Organization [facility] [place] [address] Care Team Providers Care Blood Bank Laboratory Technologist Name Role Phone Basilio Bates MD Primary Care Provider Encounter Details Date Type Department Care Team (Late st Contact Info) Description 08/09/2021 1:00 PM EDT Office Visit Audiology at [address] [phone] Oneyda Carrillo AUD [facility] [address] Asymmetric SNHL (sensorineural hearing loss) Social History [...] as of this encounter Progress Notes * Oneyda Carrillo AUD - 08/09/2021 1:00 PM EDT [place] [address] Basilio Duff was seen on 08/09/2021 for an audiologic evaluation. Patient presented with ABN upon arrival and selected Option 1. Please refer to the scanned audiogram listed under Procedures forfindings, impressions, and recommendations. Lili Aguirre, [facility]-A Information Writer [facility] [place] [address] ; documented in this encounter Plan of Treatment Upcoming Encounters Date Type Department Care Team (Late st Contact Info) Description 08/05/2024 4:30 PM EDT Office Visit Dermatology at [address] [place] [address] Rich Ivory MD [facility] DR [place] [address] documented as of this encounter Procedures Procedure Name Priority Date/Time Associated Diagnosis Comments COMPREHENSIVE HEARING TEST Routine 08/09/2021 12:56 PM EDT documented in this encounter Results * Comprehensive hearing test (08/09/2021 12:56 PM EDT) 08/09/2021 12:5 6 PM EDT Narrative AUDBASE COMP - 08/09/2021 12:56 PM EDT 1. Repeat AE per Dr. Ma. 2. HAF w/ Dr. Ma, as scheduled. Procedure Note Unknown - 08/09/2021 1. Repeat AE per Dr. Ma. 2. HAF w/ Dr. Ma, as scheduled. Oneyda RICARDO AUDIOLOGY SERVI JEAN ORDERABLES AUDBASE COMP documented in this encounter Visit Diagnoses Diagnosis Asymmetric SNHL (sensorineural hearing loss) Sensorineural hearing loss, asymmetrical documented in this encounter Care Teams Blood Bank Laboratory Technologist Relationship Specialty Start Date End Date Basilio Bates MD [address] [address] PCP - General General Internal Medicine 09/19/19 documented as of this encounter
--- OUTSIDE RECORDS SUMMARY | 2023-10-29 18:29 | XMS_ITS | Encounter Summary ---
[place] [address] Care Team Providers Care Facility Manager Histology Name Role Phone Basilio Bates MD Primary Care Provider [phone] Encounter Details Date Type Department Care Team (Late st Contact Info) Description 08/28/2022 10:15 AM EDT Office Visit Audiology at [address] [address] Katalina Hodgson, [facility] [place] [place] [address] Asymmetric SNHL (sensorineural hearing loss) Social History [...] as of this encounter Progress Notes * Katalina Hodgson, [facility] - 08/28/2022 10:15 AM EDT AUDIOLOGIC EVALUATION Basilio Duff was seen on 08/28/2022 for an audiologic evaluation in conjunction with Dr Ma for amplification management. Please refer to the scanned audiogram listed under Procedures for findings, impressions and recommendations. Lili Cartagena [employer] Certified [facility] [place] [address] documented in this encounter Plan of Treatment Upcoming Encounters Date Type Department Care Team (Late st Contact Info) Description 08/05/2024 4:30 PM EDT Office Visit Dermatology at [facility] [address] [place] [address] Rich Ivory MD [facility] [place] [address] documented as of this encounter Procedures Procedure Name Priority Date/Time Associated Diagnosis Comments COMPREHENSIVE HEARING TEST Routine 08/28/2022 9:59 AM EDT documented in this encounter Results * Comprehensive hearing test (08/28/2022 9:59 AM EDT) 08/28/2022 9:59 AM EDT Narrative AUDBASE COMP - 08/28/2022 9:59 AM EDT Follow up as scheduled with Dr Ma Procedure Note Unknown - 08/28/2022 Follow up as scheduled with Dr Ma Katalina RICARDO AUDIOLOGY SERVICES ORDERABLES AUDBASE COMP documented in this encounter Visit Diagnoses Diagnosis Asymmetric SNHL (sensorineural hearing loss) Sensorineural hearing loss, asymmetrical documented in this encounter Care Teams Facility Manager Histology Relationship Specialty Start Date End Date Basilio Bates MD [address] [place] [address] PCP - General General Internal Medicine 09/19/19 documented as of this encounter
--- OUTSIDE RECORDS SUMMARY | 2023-10-29 18:29 | XMS_ITS | Encounter Summary ---
[facility] [place] [address] Care Team Providers Care Health Information Director Name Role Phone Basilio Bates MD Primary Care Provider Encounter Details Date Type Department Care Team (Late st Contact Info) Description 06/09/2021 Notes Only Audiology at [address] [phone] Amparo Ma AUD [facility] [place] [address] Social History Tobacco Use Types Packs/Day Years [...] Progress Notes * Amparo Ma AUD - 06/09/2021 11:15 AM EDT CLAIMS VICE PRESIDENT TO COMPLETE SECTIONS I & II I. DEVICE RECOMMENDATION Note: Fill in relevant cells! If custom JOHNSON order, provider should complete associate account director order form and leave boxed ear impression and form with HIS. Earmold orders can be sent out as usual. AMPLIFICATION EQUIPMENT LIST: HEARING AID RIGHT LEFT Make/Model/Style Phonak CROS P 13 Phonak Audeo P90 13 Casing Color Silver Silver Serial Number ??[id number] Battery Size 13 13 Invoice number/date ??[id number] 07/22/2021 ?[id number] 07/22/2021 Other Comments ? PROGRAM/SETTINGS ? Fitting Algorithm ? Verification Method ? SII (w/65 dBSLP) unaided/aided ? Programs ? Other Comments >active features: >disabled features: ?? [place]ON WARRANTY ? Original Fit Date ? Current Status ??10/19/2024 10/19/2024 EARMOLD (if BTE JOH[place]ON) ? Lab ? Earmold / Slim tube / LORE / Dome specifics Length 1 noodle press operator/ CROS tube, medium open dome Length 1 M noodle press operator/ medium open dome Impression Date ? Invoice number/date ? Other Comments ? ACCESSORIES ? Make/Model (color) ? Serial Number ? Warranty date ? Invoice number/date ? Settings ? Other Comments ? H.A.T. EQUIP - PERSONAL TRANSMITTER MARKETING EXECUTIVE #1 MARKETING EXECUTIVE #2 Make / Model (color) Serial number Jamie / Audio shoe Settings Verification date Other Comments WARRANTY Original Fit Date Current Status Invoice number/date CLAIMS VICE PRESIDENT TO COMPLETE SECTION II II. PATIENT-SPECIFIC NOTES Yes No MEDICAL CLEARANCE STATUS xxx Medical clearance appt needed ! (Include in AVS instructions) Medical clearance appt took place but documentation missing / needing clarification Medical clearance already on file (Date ) Waiver completed (18+yrs only) PAYMENT STATUS xxx Patient is self-pay. Refit (in trial) EQUIPMENT CPT CODE / FEE TABLE - select item(s) by entering in associated fee CODE FEE DESCRIPTION V5011 FITTING/ORIENTATION OF [place](S) V5241 DISPENSING FEE, MONAURAL V5160 DISPENSING FEE, BINAURAL V5240 DISPENSING FEE, CROS SYSTEM (JOHNSON+CROS) V5200 DISPENSING FEE, CROS UNIT ONLY [id number] BAHA PROCESSOR, MONAURAL W/SOFTBAND (non-surgical) [id number] BAHA PROCESSOR, BINAURAL W/SOFTBAND (non-surgical) V5040 HEARING AID, MONAURAL, BODY WORN, BONE CONDUCTION V5181 CROS BTE (unit only) V5171 CROS ITE (unit only) V5172 CROS ITC (unit only) V5212 HEARING AID, Bi/CROS; ITE/ITC V5213 HEARING AID, Bi/CROS; ITE/BTE V5214 HEARING AID, Bi/CROS; ITC/ITC V5215 HEARING AID, Bi/CROS; ITC/BTE V5221 $3800 HEARING AID, Bi/CROS; BTE/BTE V5254 HEARING AID, DIGITAL, MONAURAL, CIC V5255 HEARING AID, DIGITAL, MONAURAL, ITC V5256 HEARING AID, DIGITAL, MONAURAL, ITE V5257 HEARING AID, DIGITAL, MONAURAL, BTE V5258 HEARING AID, DIGITAL, BINAURAL, CIC V5259 HEARING AID, DIGITAL,BINAURAL, ITC V5260 HEARING AID,DIGITAL, BINAURAL, ITE V5261 HEARING AID,DIGITAL,BINAURAL, BTE V5298 HEARING AID, NOC V5281 ALD, personal fm/dm system, monaural, (1 noodle press operator, transmitter, microphone), any type V5282 ALD, personal fm/dm system, binaural, (2 receivers, transmitter, microphone), any type V5288 ALD, personal fm/dm transmitter assistive listening device V5290 ALD, transmitter microphone, any type V5283 ALD, personal fm/dm neck loop induction noodle press operator V5284 ALD, personal fm/dm, ear level noodle press operator V5285 ALD, personal fm/dm, direct audio input noodle press operator V5286 ALD, personal blue tooth fm/dm noodle press operator V5287 ALD, personal fm/dm noodle press operator, not otherwise specified V5289 ALD, personal fm/dm adapter/boot coupling device for noodle press operator, any type V5270 ALD, TV Amplifier, any type V5273 ALD for use w/cochlear implant V5274 ALD, not otherwise specified V5267 JOHNSON or ALD device/supplies/accessories, not otherwise specified HIS TEAM TO COMPLETE SECTIONS III - V III. MEDICAL CLEARANCE DOCUMENTATION Note: patients under 18 years old must get medical clearance and cannot sign a waiver. Date submitted Reply date / notes received IV. PRIOR AUTHORIZATION Self-pay 08/09-Called to collect prepayment, lm, -PD Insurance coverage verified/date 07/21-Hearing Aids are not covered by Medicare or BCBS [place] Total Prepayment Due $3,800 PA submitted/date Reply date / notes received V. SCHEDULING Fitting date 08/09/2021 . ORDERING Ordered on 07/22/2021 Back-ordered? Equipment in? - JOHNSON Equipment in? - ALD/HAT 07/25/2021 Ear mold in? documented in this encounter Plan of Treatment Upcoming Encounters Date Type Department Care Team (Late st Contact Info) Description 08/05/2024 4:30 PM EDT Office Visit Dermatology at [facility] [address] [place] [address] Rich Ivory MD [facility] [place] [address] documented as of this encounter Visit Diagnoses Not on filedocumented in this encounter Care Teams Health Information Director Relationship Specialty Start Date End Date Basilio Bates MD [address] [place] [address] PCP - General General Internal Medicine 09/19/19 documented as of this encounter
--- OUTSIDE RECORDS SUMMARY | 2023-10-29 18:29 | XMS_ITS | Encounter Summary ---
Author Organization [facility] Address [facility] [place] [address] Care Team Providers Care Skid Man Name Role Phone Basilio Bates MD Primary Care Provider Encounter Details Date Type Department Care Team (Latest Contact Info) Description 08/12/2022 Travel Social History Tobacco Use Types Packs/Day [...] 4:30 PM EDT Office Visit Dermatology at [facility] [address] [place] [address] Rich Ivory MD [facility] DR ELVI [place] [address] documented as of this encounter Visit Diagnoses Not on filedocumented in this encounter Care Teams Skid Man Relationship Specialty Start Date End Date Basilio Bates MD [address] [place] [address] PCP - General General Internal Medicine 09/19/19 documented as of this encounter
--- OUTSIDE RECORDS SUMMARY | 2023-10-29 18:29 | XMS_ITS | Encounter Summary ---
Author Organization [facility] Address [facility] [place] [address] Care Team Providers Care Therapist Occupational Name Role Phone Yarelis Shaikh MD Primary Care Provider [phone] Reason for Visit * Reason Onset Date Comments Medication Refill 11/29/2017 Encounter Details Date Type Department Care Team (Late st Contact Info) Description 11/29/2017 Refill Dermatology at [facility] [address] [place] [address] Rich Ivory MD [facility] [place] [address] Social History Tobacco Use Types Packs/Day Years [...] AM EDT documented as of this encounter Miscellaneous Notes * Telephone Encounter - Barbara Hess LPN - 11/29/2017 12:23 PM EDT Refill request received for protopic, patient was last seen in clinic on 03/2017. Refill request pended to Dr. Ivory for approval. documented in this encounter Plan of Treatment Upcoming Encounters Date Type Department Care Team (Late st Contact Info) Description 08/05/2024 4:30 PM EDT Office Visit Dermatology at [facility] [address] [place] [address] Rich Ivory MD [facility] [place] [address] documented as of this encounter Visit Diagnoses Not on filedocumented in this encounter Care Teams Therapist Occupational Relationship Specialty Start Date End Date Yarelis Shaikh MD [facility] [address] [place] [address] PCP - General 02/15/10 12/20/17 documented as of this encounter
--- OUTSIDE RECORDS SUMMARY | 2023-10-29 18:29 | XMS_ITS | Encounter Summary ---
Author Organization [facility] Address [facility] [place] [address] Care Team Providers Care Urban Renewal Manager Name Role Phone Basilio Bates MD Primary Care Provider Encounter Details Date Type Department Care Team (Latest Contact Info) Description 11/22/2022 Travel Social History Tobacco Use Types Packs/Day [...] 4:30 PM EDT Office Visit Dermatology at [facility] [address] [place] [address] Rich Ivory MD [facility] [place] [address] documented as of this encounter Visit Diagnoses Not on filedocumented in this encounter Care Teams Urban Renewal Manager Relationship Specialty Start Date End Date Basilio Bates MD [address] [place] [address] PCP - General General Internal Medicine 09/19/19 documented as of this encounter
--- OUTSIDE RECORDS SUMMARY | 2023-10-29 18:29 | XMS_ITS | Encounter Summary ---
Author Organization [facility] Address [facility] [place] [address] Care Team Providers Care Ostomy Rn Name Role Phone Basilio Bates MD Primary Care Provider Reason for Visit * Reason Comments Skin Cancer Examination Encounter Details Date Type Department Care Team (Late st Contact Info) Description 09/21/2020 11:00 AM EDT Office Visit Dermatology at [facility] [address] [place] [address] Rich Crespo MD [facility] [place] [address] Actinic keratoses; Seborrheic keratoses Social History Tobacco Use Types Packs/Day Years [...] as of this encounter Progress Notes * Rich Crespo MD - 09/21/2020 11:00 AM EDT Images from the original note were [...] No SOCIAL HISTORY Occupation: Retired Hobbies: Other: History of Present Illness: Baislio Duff is a 74 y.o. year old. Patient returns to clinic today for a full skin exam. Patient denies any specific skin concerns today; no lesions that are new, changing or symptomatic. Last visit at [facility] Derm: 09/19/2019 Last visit with this provider: 09/19/2019 Medications: Reviewed in eD-H Allergies: Reviewed in eD-H Skin Examination: Full skin examination: Patient asked to undress to their comfort level. Verbalized that the provider's preference is that patient removal all clothing and that the provider will not examine areas patient elects to keep covered. Examination of the scalp, hair, head, face, ears, neck, chest, axillae,abdomen, back, buttocks, and upper and lower extremities.Genitalia was not examined. Assessment/Plan # Seborrheic Keratoses - Scattered, stuck-on, well-demarcated, tyosn or brown, waxy or warty papules c/w SKs on the trunk and extremities - Benign. No treatment necessary # Actinic Keratoses - Urbank, hyperkeratotic slightly irregular papules on the right ear and nose - Combined decision to treat with cryotherapy Procedure Note: Procedure: Destruction of lesions with cryotherapy. Number: 3 Location: as above Discussed procedure and expectations including risks (including risk of hypopigmentation) and benefits. Verbal consent obtained. Frozen with LN2, 15-30 second thaw time, TWICE. There were no complications; the patient tolerated the procedure well. Post-procedure expectations and wound care were reviewed. Other items to document in the assessment/plan if relevant ??? N/A RTC: 1 year for FSE []Note routed to pathology secretary [x]Recall has been placed in scheduling system []Appointment scheduled at checkout Scribe attestation: SUSANA Anna has performed the documentation for this encounter in the presence of and acting as a scribe for RICH CRESPO MD I performed the above scribed service and agree with the accuracy of the documentation in this encounter. Reviewed and signed by: RICH CRESPO MD Dermatology [facility] documented in this encounter Plan of Treatment Upcoming Encounters Date Type Department Care Team (Late st Contact Info) Description 08/05/2024 4:30 PM EDT Office Visit Dermatology at [place] [address] [place] [address] Rich Crespo MD [facility] [place] [address] documented as of this encounter Visit Diagnoses Diagnosis Actinic keratoses Actinic keratosis Seborrheic keratoses documented in this encounter Care Teams Ostomy Rn Relationship Specialty Start Date End Date Basilio Bates MD [address] [place] [address] PCP - General General Internal Medicine 09/19/19 documented as of this encounter
--- OUTSIDE RECORDS SUMMARY | 2023-10-29 18:29 | XMS_ITS | Encounter Summary ---
[place] [address] Care Team Providers Care Design Lead Name Role Phone Basilio Bates MD Primary Care Provider Encounter Details Date Type Department Care Team (Late st Contact Info) Description 12/20/2022 Telephone [place] [address] Olinda Montgomery Social History Tobacco Use Types Packs/Day Years [...] encounter Miscellaneous Notes * Telephone Encounter - Olinda Montgomery - 12/20/2022 12:02 PM EDT Basilio Duff [id number] Diagnosis/Indication: 5 year Please review patient chart to confirm if previous Endoscopy procedure was performed within system. If yes, take note of Anesthesia type used. If previous procedure found, and with MAC/propofol Anesthesia support was used, schedule this procedure with Anesthesia and skip the Anesthesia portion of questions. If not performed within system, not performed at all, or performed with IVCS, ask Anesthesia questions. SCHEDULING QUESTIONS (ask all patient these questions) Have you ever had a/an Colonoscopy before? Yes: Date 09/28/17 If yes, did you have any problems with the procedure (such as waking up during the procedure, pain or difficulties afterwards, etc.)? No What type of sedation was used: IV Conscious Sedation Do you take any blood thinners or have you been diagnosed with a bleeding disorder that increases your risk of bleeding with procedures? No Do you have a Pacemaker or Defibrillator device? If yes, send pool message to Cardiology with patient information and date or procedure. No Are you a diabetic? If yes, call PCP/managing provider to discuss use of prep and any questions or concerns related to. No Do you take any iron supplements or vitamins that contain iron? No Do you have a preference regarding the gender of your provider? Yes Luis Armandosen ANESTHESIA QUESTIONS (YES to any question, please book with Anesthesia support) Have you ever been diagnosed with Pulmonary Hypertension and/or Congential Heart Disease? No Have you been diagnosed with A-Fib (atrial fibrillation) that is NOT being well controled with medications? No Have you ever had an allergic or adverse reaction to Fentanyl or Versed? No Have you had a problem with sedation or anesthesia? (Waking up during procedure, extreme confusion after, etc.) No Do you have a diagnosis of Obstructive Sleep Apnea that requires the use of a c- pap machine? Yes Do you use an oxygen tank at home? No Do you use a rescue inhaler more than twice per day? (COPD, severe asthma) No Do you experience breathing problems when you lay flat for a period of time? No Do you take prescription narcotic pain medications, including suboxone or methodone? No SCHEDULING CONFIRMATIONS: Please note any and all parts of your conversation with the patient here. We offer all new patients an opportunity to have an appointment with one of our associate care providers to learn more about your upcoming procedure, ask questions and get answers. These appointmentsare offered via telehealth. Would you be interested in scheduling this appointment? (Only ask if NEW referral patient; skip this question if GI provider ordered the procedure.) No Is there any other information or concerns you would like to us to share with your care team in relation to your upcoming scheduled procedure? No You must have a responsible libertarian who will drive you to your procedure, stay on campus for the entire duration of your procedure, and drive you home from your procedure. Who will likely be your regional company hazmat tanker driver for the procedure? *Please Verify the height and weight, and adjust if height and/or weight have changed* Estimated body mass index is 27.41 kg/m?? as calculated from the following: Height as of 08/04/20: 177.8 cm (5' 10). Weight as of 08/04/20: 86.6 kg (191 lb). Age:76 y.o. documented in this encounter Plan of Treatment Upcoming Encounters Date Type Department Care Team (Late st Contact Info) Description 08/05/2024 4:30 PM EDT Office Visit Dermatology at [facility] [address] [place] [address] Rich Ivory MD [facility] [place] [address] documented as of this encounter Visit Diagnoses Not on filedocumented in this encounter Care Teams Design Lead Relationship Specialty Start Date End Date Basilio Bates MD [address] [place] [address] PCP - General General Internal Medicine 09/19/19 documented as of this encounter
--- OUTSIDE RECORDS SUMMARY | 2023-10-29 18:29 | XMS_ITS | Encounter Summary ---
Author Organization [facility] Address [facility] [place] [address] Care Team Providers Care Medical Biller Coder Name Role Phone Basilio Bates MD Primary Care Provider [phone] Encounter Details Date Type Department Care Team (Late st Contact Info) Description 11/29/2022 10:00 AM EDT Office Visit Dermatology at [facility] [address] [place] [address] Delaney Woods MD [facility] [place] [address] Neoplasm of unspecified behavior of bone, soft tissue, and skin; Actinic keratoses; Inflamed seborrheic keratosis; Blue nevus; Lentigines; Seborrheic keratosis Social History Tobacco Use Types Packs/Day Years [...] as of this encounter Progress Notes * Delaney Woods MD - 11/29/2022 10:00 AM EDT Images from the original note were not included. DEPARTMENT OF DERMATOLOGY Medical Dermatology Clinic Provider: Delaney Woods MD Patient's preferred name Gary Preferred contact [...] of Present Illness: Basilio Duff is a 76 y.o. year old. Patient returns to clinic today for full skin exam. - Patient denies of any bothersome or concerning lesions for today's visit. Last visit at [facility] Derm: 08/29/2022 Medications: Reviewed in eD-H Allergies: Reviewed in eD-H Skin Examination: Full skin examination: Patient asked to undress to their comfort level. erbalized that the provider's preference is that patient removal all clothing and that the provider will not examine areas patient elects to keep covered. Patient elects to keep underwear on and have the following examined: scalp, hair, head, face, ears, neck, chest, axillae, abdomen, back, and left and right upper and lower extremities. Genitalia and buttocks were not examined. Assessment/Plan #. 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 After discussion of potential risks (scarring, bleeding, infection) and recurrence, patient agreed to proceed. - Patient denies known allergies to lidocaine and epinephrine. Procedure: Skin shave biopsy Location: Left upper back Time of procedure: 10:16 AM Discussed indications for procedure and expectations including risks and benefits. Verbal consent obtained. Time out performed. Skin prepped with alcohol. Local anesthesia with 1% xylocaine, 1/100,000 epinephrine. A sample of the lesion was removed by shave technique to the level of the dermis and s ubmitted to Pathology. Hemostasis obtained (AlCl). There were no complications; patient tolerated the procedure well. Wound dressed. Post-procedure expectations, wound care and activity restrictions reviewed. - Follow-up based on pathology results. #. Actinic Keratoses - Ill-defined gritty papules on the left helix x1, scalp x1, right helix x1. - Explained premalignant potential of these lesions. - Discussed treatment with cryotherapy. Patient elects to proceed with cryotherapy today. - Instructed patient to return to clinic for re-evaluation if lesion(s) does not resolve as expected with this treatment. Procedure: Destruction of lesion(s) with cryotherapy (LN2). Location(s): As noted above. Number: 3 Discussed procedure and expectations, including risks and benefits. Verbal consent obtained. Treated with LN2. There were no complications; Patient tolerated the procedure well. Post-procedure expectations and wound care reviewed. #. Inflamed Seborrheic Keratosis - Inflamed, stuck on, waxy papule on the left mid back x1, abdomenx1 - Discussed benign nature of lesion(s) and provided reassurance. - Due to irritation present on today's exam and history of symptoms, discussed removal with cryotherapy. - Patient elects to proceed with cryotherapy today. Procedure: Destruction of lesion(s) with cryotherapy (LN2). Location(s): As noted above Number: 2 Discussed procedure and expectations including risks and benefits. Verbal consent obtained. Treatedwith LN2. There were no complications; Patient tolerated the procedure well. Post-procedure expectations and wound care were reviewed. #. Blue Nevus - Violaceous, well-circumscribed, dome-shaped papule on the right dorsal foot. - Discussed benign nature of lesion and provided reassurance. Will continue to monitor. #. Solar Lentigines: On sun exposed areas there are scattered light brown evenly pigmented macules - Reassurance provided - Discussed the importance of sun protection # Seborrheic Keratosis: Scattered brown and flesh colored, waxy, stuck on plaques located on trunk and extremities - Reassured of benign nature, return to clinic if these lesions become inflamed or irritating Figure 1 Photo was taken and charted with patient's verbal consent Other items to document in the assessment/plan if relevant N/A RTC: Pending pathology / FSE scheduled w/ Dr. Iovry / return sooner as needed []Note routed to board of education secretary [x]Recall has been placed in scheduling system []Appointment scheduled at checkout Scribe attestation: Princess Appiah [facility] who has performed the documentation for this encounter inthe presence of and acting as a scribe for Delaney Woods MD. I performed the above scribed service and agree with the accuracy of the documentation in this encounter. Reviewed and signed by: Delaney Woods MD Dermatology [facility] documented in this encounter Plan of Treatment Upcoming Encounters Date Type Department Care Team (Late st Contact Info) Description 08/05/2024 4:30 PM EDT Office Visit Dermatology at [address] [address] Rich Ivory MD [facility] [place] [address] documented as of this encounter Procedures Procedure Name Priority Date/Time Associated Diagnosis Comments SPECIMEN TO PATHOLOGY Routine 11/29/2022 10:42 AM EDT Neoplasm of unspecified behavior of bone, soft tissue, and skin SURGICAL PATHOLOGY REPORT Routine 11/29/2022 10:15 AM EDT documented in this encounter Results * Specimen to Pathology (11/29/2022 10:42 AM EDT) AP Specimen 11/29/2022 10:4 2 AM EDT 11/29/2022 10:42 AM EDT Narrative [facility] - 11/29/2022 10:42 AM EDT Specimen requisition ordered. ??Separate Pathology report to follow Delaney Woods MD PATHOLOGY/CYTOLOGY O KATIA [facility] [place] [id number] * Surgical Pathology Report (11/29/2022 10:15 AM EDT) Final Diagnosis [id number] ? Location: [facility] The signing pathologist has (i) examined the relevant preparation(s) for the specimen(s) and (ii) rendered or confirmed the diagnosis(es). . ?Surgical Pathology DIAGNOSIS Left upper back, skin shave biopsy: - Solar lentigo with post-inflammato ry changes Electronically signed by: ?Thad DAVEY, PhD, Edin Wolfe Verified: ??12/06/2022 13:53 ??Dermatopathol ogist, Bone & Soft Tissue Pathologist Performed at: ??-[facility] Dept. of [place]ology, [place] [address] Lining Brusher: Allan Saba MD, FCAP, ??CLIA Certificate: [id number] SPECIMEN(S) SUBMITTED A - Left upper back, skin shave biopsy (1) CLINICAL INFORMATION lichenoid keratosis R/O MM - 7 mm grayish macule on the left upper back SPECIMEN PROCESSING A - Labeled/Fixativ e: Patient Demographics, formalin. Quantity/Size: ??Single, 0.9 x 0.8 x 0.1 cm. Tissue Description: Shave of minimal tyson skin with a 0.6 x 0.4 cm brown macule. Sections/Proces sing: Inked, trisected and entirely submitted in 1 cassette labeled A1. ??sdy 12/06/2022 1:53 PM EDT [facility] SPECIMEN FROM SKIN / Unknown 11/29/2022 10:15 AM EDT 11/29/2022 10:15 AM EDT Delaney Woods MD PATHOLOGY/CYTOLOGY Kaylan MONTALVO [facility] [address] [place] [address] [place] [address] documented in this encounter Visit Diagnoses Diagnosis Neoplasm of unspecified behavior of bone, soft tissue, and skin Actinic keratoses Actinic keratosis Inflamed seborrheic keratosis Blue nevus Lentigines Other dyschromia Seborrheic keratosis Other seborrheic keratosis documented in this encounter Care Teams Medical Biller Coder Relationship Specialty Start Date End Date Basilio Bates MD [address] [place] [id number] PCP - General General Internal Medicine 09/19/19 documented as of this encounter
--- OUTSIDE RECORDS SUMMARY | 2023-10-29 18:29 | XMS_ITS | Encounter Summary ---
[place] [address] Care Team Providers Care Metal Storage Worker Name Role Phone Basilio Bates MD Primary Care Provider [phone] Encounter Details Date Type Department Care Team (Late st Contact Info) Description 09/23/2020 9:45 AM EDT Office Visit Audiology at [address] [address] Amparo Ma AUD [facility] [place] [address] Asymmetric SNHL (sensorineural hearing loss) Social History [...] this encounter Progress Notes * Amparo Ma, HALEIGH - 09/23/2020 9:45 AM EDT AUDIOLOGY HEARING AID CHECK Basilio Duff returns today after fitting of a [employer] BICROS system. He was accompanied by his . History is positive for asymmetric sensorineural hearing loss, R>L. Mr. Duff reported the following information: ?? He is not noticing much difference in his hearing with the new hearing aids compared to his older Phonak aids. ?? He has been frustrated with the hearing aid technology. He has not found the technology very user friendly. He has not noticed much of a difference making changes in the jeanette. ?? he hearing aid batteries went within 2 hours yesterday, where the batteries were completely drained. ?? He remembers noticing more improvement in speech understanding using the Phonak Audeo B hearing aids he tried in 2018. After discussion, it was decided that the [employer] BICROS system will be returned to the printing machine mechanic for credit. It is likely that [employer] will release a CROS transmitter for the [place] line in lateer/ early fall. A hearing aid fitting appointment was therefore scheduled for 12/07/20 (Audeo P70 R hearing aid to be ordered for the left ear, CROS transmitter for the right). Mr. Duff will mailback the [employer] hearing instruments and turning machine set up operator next week. Plan: Return to clinic in November for fitting of NetcordiaROS hearing system, pending release of the [place] CROS transmitter. Haleigh Lopez Clinical [place] [address] ; AMPLIFICATION EQUIPMENT LIST: HEARING AID RIGHT LEFT Make/Model/Style Hasmukh CROS AI 2000 R Hasmukh Tremaine AI 2000 LORE R Casing Color Silver Silver Serial Number [id number] Battery Size Rechargeable Rechargeable Invoice number/date [id number] 08/26/2020 [id number] 08/26/2020 Other Comments ? PROGRAM/SETTINGS ? Fitting [...] mm open dome Length 2 50 gain surface miner/ 7 mm open dome Impression Date ? Invoice number/date ? Other Comments ? ACCESSORIES ? Make/Model (color) Retail Representative ?? Serial Number [id number] ?? Warranty date 11/25/2021 ?? Invoice number/date [id number] 08/26/2020 ?? Settings ? Other Comments ? HEARING AID(S): ?? HEARING AID ?? RIGHT ?? LEFT ?? STYLE ?? BICROS Transmitter ?? RITE ?? MAKE/MODEL ?? Phonak ?? Phonak Audeo S Smart V ?? CASING COLOR ?? Mocha Taupe ?? Same ?? SERIAL NUMBER ?? [id number]? [id number] ?? BATTERY SIZE ?? 312 ?? 312 [...] SERIAL / INVOICE # ?? Invoice #: [id number] ??03/16/16 ?? Serial #: [id number]? TUBE/LORE (length/dome/surface miner size) ?? Length 2 tube ?? Length 2 standard surface miner/ medium open phonak dome ?? OTHER / COMMENTS ? Assistive Listening Devices/Wireless Accessories? Device? Phonak iCom ? Serial #? [id number] ? Fit Date? 11/17/10 ? Warranty Exp.? 01/29/12 ? documented in this encounter Plan of Treatment Upcoming Encounters Date Type Department Care Team (Late st Contact Info) Description 08/05/2024 4:30 PM EDT Office Visit Dermatology at [address] [address] Rich Ivory MD [facility] DR [address] [place] [address] documented as of this encounter Visit Diagnoses Diagnosis Asymmetric SNHL (sensorineural hearing loss) Sensorineural hearing loss, asymmetrical documented in this encounter Care Teams Metal Storage Worker Relationship Specialty Start Date End Date Basilio Bates MD [address] [place] [id number] PCP - General General Internal Medicine 09/19/19 documented as of this encounter
--- OUTSIDE RECORDS SUMMARY | 2023-10-29 18:29 | XMS_ITS | Encounter Summary ---
[place] [address] Care Team Providers Care Juvenile Court Liaison Name Role Phone Basilio Bates MD Primary Care Provider Encounter Details Date Type Department Care Team (Late st Contact Info) Description 11/15/2019 Tele[place] [address] Beny Smith MD [facility] [place] [address] Social History Tobacco Use Types Packs/Day Years [...] encounter Miscellaneous Notes * Telephone Encounter - Dodie Powers COT - 11/17/2019 8:41 AM EDT Reviewed referral from PCP which indicated, patient will see Dr. Clement for this vision change, but would like to continued to be followed by Dr. Smith at [facility]. 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 PCP sent referral 11/11. Forwarded to Dr. Smith for his review. * Telephone Encounter - Kathleen Manrique, COT - 11/15/2019 10:12 AM EDT Pts (Krista) was in to see EMS on Sat 11/14 and mentioned that Gary has had va changes recently and needs to be seen IVONE. has pending referral for glauc suspect follow up (former pt of Luis in [facility]) Advised I would send to triage and have them call documented in this encounter Plan of Treatment Upcoming Encounters Date Type Department Care Team (Late st Contact Info) Description 08/05/2024 4:30 PM EDT Office Visit Dermatology at [address] [address] Rich Ivory MD [facility] [place] [address] documented as of this encounter Visit Diagnoses Not on filedocumented in this encounter Care Teams Juvenile Court Liaison Relationship Specialty Start Date End Date Basilio Bates MD [address] [place] [address] PCP - General General Internal Medicine 09/19/19 documented as of this encounter
--- OUTSIDE RECORDS SUMMARY | 2023-10-29 18:29 | XMS_ITS | Encounter Summary ---
Author Organization [facility] [place] [address] Care Team Providers Care Bss Solution Architect Name Role Phone Basilio Bates MD Primary Care Provider Encounter Details Date Type Department Care Team (Late st Contact Info) Description 12/28/2020 Telephone Audiology at [address] [address] Natali Palacios Social History Tobacco Use Types Packs/Day Years [...] encounter Miscellaneous Notes * Telephone Encounter - Natali Palacios - 12/28/2020 3:09 PM EDT Called patient at [phone] calling to let patient know appt w/ Amparo Ma on 01/17 has been canceled as per appt is not needed as patient did not have HAF in November. Left generic voicemail for patient to callback. appt on 01/17 has been cancelled documented in this encounter Plan of Treatment Upcoming Encounters Date Type Department Care Team (Late st Contact Info) Description 08/05/2024 4:30 PM EDT Office Visit Dermatology at [facility] [address] [place] [address] Rich Ivory MD [facility] [place] [address] documented as of this encounter Visit Diagnoses Not on filedocumented in this encounter Care Teams Bss Solution Architect Relationship Specialty Start Date End Date Basilio Bates MD [address] [place] [address] PCP - General General Internal Medicine 09/19/19 documented as of this encounter
--- OUTSIDE RECORDS SUMMARY | 2023-10-29 18:29 | XMS_ITS | Encounter Summary ---
[place] [address] Care Team Providers Care Computer Language Coder Name Role Phone Basilio Bates MD Primary Care Provider Encounter Details Date Type Department Care Team (Late st Contact Info) Description 08/09/2020 11:15 AM EDT Office Visit Audiology at [address] [phone] Amparo Ma AUD [facility] [place] [address] Asymmetric SNHL (sensorineural hearing loss) Social History [...] Progress Notes * Amparo Ma, HALEIGH - 08/09/2020 11:15 AM EDT AUDIOLOGY Basilio Duff was seen today for a BICROS hearing aid check following a hearing re-evaluation. History is positive for asymmetric sensorineural hearing loss. Please refer to the audiogram and associated note for details on otologic symptoms and hearing test results. Mr. Duff reported that the hearing instruments are working, although there are times, such as in background noise, he has significant difficulty understanding speech. He denied mechanical problems with the hearing instruments, buthe is interested in discussing new BICROS system options. The following actions were taken: ?? Otoscopy showed clear ear canals bilaterally. ?? Both devices were cleaned and a listening check indicated that they were functioning. The photostatic copy maker for the left hearing aid was replaced, as the the photostatic copy maker itself snapped off the wire when the dome was removed. ?? Hearing aid responses approximated prescriptive targets for speech without exceeding MPO targets. Function of the CROS instrument was verified. No changes to programming were made. ??? Simulated real ear measures were obtained and function of the directional microphones was verified. Mr. Duff was counseled regarding hearing aid styles, technology, and pricing options. In consideration of Mr. Duff's auditory demands and degree/configuration of hearing loss, it was agreed that Hasmukh Penaloza 2000 LORE R hearing instruments (hearing aid for the left ear and CROS instrument for the right) would be appropriate for his needs. Mr. Duff was counseled about the terms of the purchase and the thirty day return privilege. The New Hearing Instruments: Itemized Fees form was reviewed and signed by Mr. Duff, and he understood the terms of payment. RECOMMENDATIONS BICROS hearing aid fitting Haleigh Lopez [employer] [address] ; HEARING AID(S): ?? HEARING AID ?? RIGHT ?? LEFT ?? STYLE ?? BICROS Transmitter ?? RITE ?? MAKE/MODEL ?? Phonak ?? Phonak Audeo S Smart V ?? CASING COLOR ?? Mocha Taupe ?? Same ?? SERIAL NUMBER ?? [id number]? [id number] ?? BATTERY SIZE ?? 312 ?? 312 [...] SERIAL / INVOICE # ?? Invoice #: [id number] ??03/16/16 ?? Serial #: [id number]? TUBE/LORE (length/dome/photostatic copy maker size) ?? Length 2 tube ?? Length 2 standard photostatic copy maker/ medium open phonak dome ?? OTHER / COMMENTS ? Assistive Listening Devices/Wireless Accessories? Device? Phonak iCom ? Serial #? [id number] ? Fit Date? 11/17/10 ? Warranty Exp.? 01/29/12 ? documented in this encounter Plan of Treatment Upcoming Encounters Date Type Department Care Team (Late st Contact Info) Description 08/05/2024 4:30 PM EDT Office Visit Dermatology at [facility] [address] [place] [address] Rich Ivory MD [facility] [address] EL[place] [address] documented as of this encounter Visit Diagnoses Diagnosis Asymmetric SNHL (sensorineural hearing loss) Sensorineural hearing loss, asymmetrical documented in this encounter Care Teams Computer Language Coder Relationship Specialty Start Date End Date Basilio Bates MD [address] [place] [id number] PCP - General General Internal Medicine 09/19/19 documented as of this encounter
--- OUTSIDE RECORDS SUMMARY | 2023-10-29 18:29 | XMS_ITS | Encounter Summary ---
Author Organization [facility] Address [facility] [place] [address] Care Team Providers Care Results Technician Name Role Phone Basilio Bates MD Primary Care Provider Reason for Visit * Reason Onset Date Comments Medication Refill 06/30/2018 Encounter Details Date Type Department Care Team (Late st Contact Info) Description 06/30/2018 Refill Dermatology at [facility] [address] [place] [address] Rich Ivory MD [facility] [address]VI [place] [address] Scalp psoriasis Social History Tobacco Use Types Packs/Day Years [...] 4:30 PM EDT Office Visit Dermatology at [facility] [address] [place] [address] Rich Ivory MD [facility] [address] [place] [address] documented as of this encounter Visit Diagnoses Diagnosis Scalp psoriasis Other psoriasis documented in this encounter Care Teams Results Technician Relationship Specialty Start Date End Date Basilio Bates MD [address] [place] [id number] PCP - General General Internal Medicine 09/19/19 documented as of this encounter
--- OUTSIDE RECORDS SUMMARY | 2023-10-29 18:29 | XMS_ITS | Encounter Summary ---
Author Organization [facility] [place] [address] Care Team Providers Care Machine Trimmer Name Role Phone Basilio Bates MD Primary Care Provider [phone] Encounter Details Date Type Department Care Team (Late st Contact Info) Description 11/17/2020 Notes Only Audiology at [address] [phone] Amparo Ma AUD [facility] [place] [address] Social History Tobacco Use Types Packs/Day Years [...] Progress Notes * Amparo Ma AUD - 11/17/2020 5:31 PM EDT CYLINDER WORKER TO COMPLETE SECTIONS I & II I. DEVICE RECOMMENDATION Note: Fill in relevant cells! If custom JOHNSON order, provider should complete teletype or varitype keyboard operator order form and leave boxed ear impression and form with HIS. Earmold orders can be sent out as usual. AMPLIFICATION EQUIPMENT LIST: HEARING AID RIGHT LEFT Make/Model/Style Phonak CROS P-R Phonak Audeo P90 R Casing Color Silver Silver Serial Number Battery Size Rechargeable Rechargeable Invoice number/date Other Comments PROGRAM/SETTINGS Fitting Algorithm Verification Method SII (w/65 dBSLP) unaided/aided Programs Other Comments >active features: >disabled features: JOHNSON WARRANTY Original Fit Date Current Status EARMOLD (if BTE JOHNSON) Lab Earmold / Slim tube / LORE / Dome specifics Length 1 ball sorter/ CROS tube, medium open dome Length 1 M ball sorter/ medium open dome Impression Date Invoice number/date Other Comments ACCESSORIES Make/Model (color) Serial Number Warranty date Invoice number/date Settings Other Comments H.A.T. EQUIP - PERSONAL TRANSMITTER DISTRIBUTION SYSTEMS SERVICEPERSON #1 DISTRIBUTION SYSTEMS SERVICEPERSON #2 Make / Model (color) Serial number Jamie / Audio shoe Settings Verification date Other Comments WARRANTY Original Fit Date Current Status Invoice number/date CYLINDER WORKER TO COMPLETE SECTION II II. PATIENT-SPECIFIC NOTES Yes No xxx MEDICAL CLEARANCE STATUS Medical clearance appt needed ! (Include in AVS instructions) Medical clearance appt took place but documentation missing / needing clarification Medical clearance already on file (Date ) Waiver completed (18+yrs only) PAYMENT STATUS Patient is self-pay. xxx Refit (in trial) EQUIPMENT CPT CODE / FEE TABLE - select item(s) by entering in associated fee CODE FEE DESCRIPTION V5011 FITTING/ORIENTATION OF [place] JOH[place]ON(S) V5241 DISPENSING FEE, MONAURAL V5160 DISPENSING FEE, BINAURAL V5240 DISPENSING FEE, CROS SYSTEM (JOHNSON+CROS) V5200 DISPENSING FEE, CROS UNIT ONLY [id number] BAHA PROCESSOR, MONAURAL W/SOFTBAND (non-surgical) [id number] BAHA PROCESSOR, BINAURAL W/SOFTBAND (non-surgical) V5040 HEARING AID, MONAURAL, BODY WORN, BONE CONDUCTION V5181 CROS BTE (unit only) V5171 CROS ITE (unit only) V5172 CROS ITC (unit only) V5212 HEARING AID, Bi/CROS; ITE/ITC V5213 HEARING AID, Bi/CROS; ITE/BTE V5214 HEARING AID, Bi/CROS; ITC/ITC V5215 HEARING AID, Bi/CROS; ITC/BTE V5221 HEARING AID, Bi/CROS; BTE/BTE V5254 HEARING AID, DIGITAL, MONAURAL, CIC V5255 HEARING AID, DIGITAL, MONAURAL, ITC V5256 HEARING AID, DIGITAL, MONAURAL, ITE V5257 HEARING AID, DIGITAL, MONAURAL, BTE V5258 HEARING AID, DIGITAL, BINAURAL, CIC V5259 HEARING AID, DIGITAL,BINAURAL, ITC V5260 HEARING AID,DIGITAL, BINAURAL, ITE V5261 HEARING AID,DIGITAL,BINAURAL, BTE V5298 HEARING AID, NOC V5281 ALD, personal fm/dm system, monaural, (1 ball sorter, transmitter, microphone), any type V5282 ALD, personal fm/dm system, binaural, (2 receivers, transmitter, microphone), any type V5288 ALD, personal fm/dm transmitter assistive listening device V5290 ALD, transmitter microphone, any type V5283 ALD, personal fm/dm neck loop induction ball sorter V5284 ALD, personal fm/dm, ear level ball sorter V5285 ALD, personal fm/dm, direct audio input ball sorter V5286 ALD, personal blue tooth fm/dm ball sorter V5287 ALD, personal fm/dm ball sorter, not otherwise specified V5289 ALD, personal fm/dm adapter/boot coupling device for ball sorter, any type V5270 ALD, TV Amplifier, any [...] / notes received IV. PRIOR AUTHORIZATION Self-pay Insurance coverage verified/date PA submitted/date Reply date / notes received V. SCHEDULING Fitting date . ORDERING Ordered on Back-ordered? Equipment in? - JOHNSON Equipment in? - ALD/HAT Ear mold in? documented in this encounter Plan of Treatment Upcoming Encounters Date Type Department Care Team (Late st Contact Info) Description 08/05/2024 4:30 PM EDT Office Visit Dermatology at [facility] [address] [place] [address] Rich Ivory MD [facility] DR ELVI [place] [address] documented as of this encounter Visit Diagnoses Not on filedocumented in this encounter Care Teams Machine Trimmer Relationship Specialty Start Date End Date Basilio Bates MD [address] [place] [id number] PCP - General General Internal Medicine 09/19/19 documented as of this encounter
--- OUTSIDE RECORDS SUMMARY | 2023-10-29 18:29 | XMS_ITS | Encounter Summary ---
[place] [address] Care Team Providers Care Developer Evangelist Name Role Phone Basilio Bates MD Primary Care Provider Reason for Referral * Diagnostic Test (Routine) - Closed Specialty Diagnoses / Procedures Referred By Contac t Referred To Contact Radiology Diagnoses Acoustic neuroma Meningioma Procedures MRI Brain wwo Contrast (Generic) [facility] [address] [place] [phone] [place] [address] Referral ID Status Reason Start Date Expiration Date V isits Requested Visits Authorized [id number] Closed Specialty Service Requested 11/19/2019 05/16/2020 1 1 Reason for Visit * Diagnostic Test (Routine) - Closed Specialty Diagnoses / Procedures Referred By Contac t Referred To Contact Radiology Diagnoses Acoustic neuroma Meningioma Procedures MRI Brain wwo Contrast (Generic) [facility] [address] [place] [phone] [place] [address] Referral ID Status Reason Start Date Expiration Date V isits Requested Visits Authorized [id number] Closed Specialty Service Requested 11/19/2019 05/16/2020 1 1 Encounter Details Date Type Department Care Team (Latest Contact Info) Description 11/20/2019 12:34 PM EDT - 11/20/2019 11:59 PM EDT Hospital Encounter MRI at [facility] [place] [address] Alexandro Foss MD [facility] [place] [address] Acoustic neuroma; Meningioma Discharge Disposition: Home Social History Tobacco Use Types Packs/Day Years [...] AM EDT documented as of this encounter Medications at Time of Discharge Medication Sig Dispensed Refills Start Date End Date atorvastatin (LIPITOR) 20 mg Tablet TK 1 T PO QD 3 07/08/2018 fluocinolone (DERMA-SMOOTHE) 0.01 % OilIndications:Scalp psoriasis Apply topically to the scalp nightly as needed 120 mL 07/11/2018 tacrolimus (PROTOPIC) 0.1 % Ointment Apply topically 1-2 times daily to affected areas 100 g 12/02/2017 multivitamin (THERAGRAN) Tablet Take 1 tablet by mouth daily. aspirin 325 mg tablet Take 325 mg by mouth daily. documented as of this encounter Plan of Treatment Upcoming Encounters Date Type Department Care Team (Late st Contact Info) Description 08/05/2024 4:30 PM EDT Office Visit Dermatology at [facility] [address] [place] [address] Rich Ivory MD [facility] [place] [address] documented as of this encounter Procedures Procedure Name Priority Date/Time Associated Diagnosis Comments MRI BRAIN WWO CONTRAST (GENERIC) Routine 11/20/2019 1:56 PM EDT Acoustic neuroma Meningioma documented in this encounter Results * MRI Brain wwo Contrast (Generic) (11/20/2019 1:56 PM EDT) Anatomical Region Laterality Modality Head Magnetic Resonan ce Impressions 11/20/2019 2:52 PM EDT Slightly decreased size of right IAC mass. Unchanged parafalcine ossification. Thank you for letting us participate in the care of this patient. For questions regarding this report, please contact the number below. ? 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 COMPARISON: MR 06/25/2015, 04/20/2010 FINDINGS: The enhancing mass in the right internal auditory canal is slightly smaller than was on the prior study. The left IAC remains normal. There is no new mass or new abnormal enhancement elsewhere. The ossification along the falx is unchanged. There are small areas of T2 signal alteration the white matter, nonspecific finding typically attributed to small vessel ischemic change. The ventricles are unchanged. 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 COMPARISON: MR 06/25/2015, 04/20/2010 FINDINGS: The enhancing mass in the right internal auditory canal is slightlysmaller than was on the prior study. The left IAC remains normal. There is no new massor new abnormal enhancement elsewhere. The ossification along the falx isunchanged. There are small areas of T2 signal alteration the white matter,nonspecific finding typically attributed to small vessel ischemic change. Theventricles are unchanged. IMPRESSION Slightly decreased size of right IAC mass. Unchanged parafalcineossification. Thank you for letting us participate in the care of this patient. Forquestions regarding this report, please contact the number below. Electronically signed by: JACI Encarnacion [facility]([phone]), at 11/20/2019 2:52 PM Alexandro Foss MD IMG MRI ORDERABLES documented in this encounter Visit Diagnoses Diagnosis Acoustic neuroma Benign neoplasm of cranial nerves Meningioma Benign neoplasm of cerebral meninges documented in this encounter Administered Medications Inactive Administered Medications - up to 3 most recent administrations Medication Order MAR Action Action Date Dose Rate Site gadoterate meglumine (DOTAREM) 0.5 mmol/mL (376.9 mg/mL) injection 0.2 mL/kg/dose 0.2 mL/kg/dose, Intravenous, ONCE PRN, 1 dose, Starting on Anahy 11/20/19 at 1415, Until Anahy 11/20/19 at 1334, Per Protocol, Routine Given 11/20/2019 1:34 PM EDT 17 mLs documented in this encounter Care Teams Developer Evangelist Relationship Specialty Start Date End Date Basilio Bates MD [address] [place] [phone] PCP - General General Internal Medicine 09/19/19 documented as of this encounter
--- OUTSIDE RECORDS SUMMARY | 2023-10-29 18:29 | XMS_ITS | Encounter Summary ---
Author Organization [facility] [place] [address] Care Team Providers Care Yarn Handler Name Role Phone Basilio Bates MD Primary Care Provider Reason for Visit * Auth/Cert (Routine) Specialty Diagnoses / Procedures Referred By Contac t Referred To Contact Diagnoses Alternating constipation and diarrhea 5 year diarrhea & constipation Procedures PRO COLONOSCOPY, DIAGNOSTIC PRO COLONOSCOPY, BIOPSY PRO COLONOSCOPY, REMV LESN, SNARE PRO ANESTH, LWR INTESTINE, NOS COLONOSCOPY,SCREENING (WRVU 3.26) Nicho Kennedy MD [facility] [place] [address] [facility] Referral ID Status Reason Start Date Expiration Date Visits Re quested Visits Authorized [id number] 1 1 Encounter Details Date Type Department Care Team (Latest Contact Info) Description 01/11/2023 6:49 AM EDT - 01/11/2023 9:38 AM EDT Hospital En[place] [address] Nicho Kennedy MD [facility] [place] [address] Discharge Disposition: Home Social History Tobacco Use [...] AM EDT documented as of this encounter Last Filed Vital Signs Vital Sign Reading [...] Mass Index 28.41 01/11/2023 7:33 AM EDT documented in this encounter Discharge Instructions * Discharge Instructions* Socorro Chery RN - 01/11/2023 8:49 AM EDT Colonoscopy: What to Expect at Home Your Recovery Your doctor will talk to you about when you will need your next colonoscopy. Your doctor can help you decide how often you need to be checked. This will depend on the results of your test and your risk for colorectal cancer. After the test, you may be bloated or have gas pains. You may need to pass gas. If a biopsy was done or a polyp was removed, you may have streaks of blood in your stool (feces) for a few days. Problems such as heavy rectal bleeding may not occur until several weeks after the test. This isn't common. But it can happen after polyps are removed. This care sheet gives you a general idea about how long it will take for you to recover. But each person recovers at a different pace. Follow the steps below to get better as quickly as possible. How can you care for yourself at home? Activity Rest when you feel tired. You can do your normal activities when it feels okay to do so. Diet Follow your doctor's directions for eating. Unless your doctor has told you not to, drink plenty of fluids. This helps to replace the fluids that were lost during the colon prep. Do not drink alcohol. Medicines Your doctor will tell you if and when you can restart your medicines. He or she will also give you instructions about taking any new medicines. If you take blood thinners, such as warfarin (Coumadin), clopidogrel (Plavix), or aspirin, be sure to talk to your doctor. He or she will tell you if and when to start taking those medicines again. Make sure that you understand exactly what your doctor wants you to do. If polyps were removed or a biopsy was done during the test, your doctor may tell you not to take aspirin or other anti-inflammatory medicines for a few days. These include ibuprofen (Advil, Motrin) and naproxen (Aleve). Other instructions For your safety, do not drive or operate machinery until the medicine wears off and you can think clearly. Your doctor may tell you not to drive or operate machinery until the day after your test. Do not sign legal documents or make major decisions until the medicine wears off and you can think clearly. The anesthesia can make it hard for you to fully understand what you are agreeing to. Additional Information for Sedation Patients For patients who received sedation: You may have received medications before and/or during your procedure which effects your judgement and reaction time. Do not drive, operate machinery, drink alcoholic beverages or make important decisions for 24 hours. Be careful on stairs as you may be unsteady on your feet. You may eat a regular diet as tolerated. Do not smoke if you are alone. IV site: Slight redness or tenderness is normal, you can use a warm compress if you would like. If tenderness and/or redness increase or if foul drainage occurs, please contact your Doctor. Please call [phone] before 8pm Mon-Fri with problems, questions or concerns. If you call after 8pm or on weekends, call the Hospital at [phone] and ask to speak to the Inspector Insulation gas station attendant and the test rack operator will contact that person for you. When should you call for help? Call 911 anytime you think you may need emergency care. For example, call if: You passed out (lost consciousness). You pass maroon or bloody stools. You have trouble breathing. Call your doctor now or seek immediate medical care if: You have pain that does not get better after you take pain medicine. You are sick to your stomach or cannot drink fluids. You have new or worse belly pain. You have blood in your stools. You have a fever. You cannot pass stools or gas. Watch closely for changes in your health, and be sure to contact your doctor if you have any problems. Where can you learn more? [facility] View your After Visit Summary and more online at [email or web address] If you would like to provide feedback about your hospital experience, please call the Office of Patient and Family Relations at . If you have received this After Visit Summary in error, please immediately return it in person to the department, or notify the [facility] Privacy Office by calling toll free at between the hours of 8AM and 5PM to arrange for our retrieval of the documents at no cost to you. Content Version: 12.2 ?? [id number] [employer]. Care instructions adapted under license by [facility]. If you have questions about a medical condition or this instruction, always ask your healthcare professional. [employer] disclaims any warranty or liability for your use of this information. documented in this encounter Medications at Time of Discharge [...] mouth daily. documented as of this encounter H&P Notes * Nicho Kennedy MD - 01/11/2023 7:11 AM EDT Gastroenterology and Hepatology Pre-Procedure History and Physical Exam Procedure: colo Indication: surveillance. Last colo 2018 w/ 2mm cecal TA. Reportedly 2 small/diminutive polyps on exam prior to that. Recent new constipation which resolved w/ Miralax. No other red flag symptoms. Recent CT unrevealing. Patient Active Problem List Diagnosis Code Acoustic neuroma D33.3 SNHL (sensory-neural hearing loss), asymmetrical H90.3 Actinic keratoses L57.0 SK (seborrheic keratosis) L82.1 Sensorineural hearing loss, asymmetrical H90.3 EXAM: HEENT: Airway examined, oropharynx clear Mallampati Score: I (soft palate, uvula, fauces, tonsillar pillars visible) LUNGS: Clear to auscultation HEART: Regular rate and rhythm, normal S1, S2 ABDOMEN: Normal bowel sounds, soft, non tender, non distended A/P: Proceed with the planned endoscopic procedure. ASA 3 - Patient with moderate systemic disease with functional limitations Sedation Plan: anesthesia Risks and benefits of the procedure explained to the patient. Consent form signed and included in the patient's chart. Nicho Kennedy MD Advanced Endoscopy Fellow Gastroenterology & Hepatology documented in this encounter Plan of Treatment Upcoming Encounters Date Type Department Care Team (Late st Contact Info) Description 08/05/2024 4:30 PM EDT Office Visit Dermatology at [address] [address] Rich Ivory MD [facility] [address] [place] [address] documented as of this encounter Procedures Procedure Name Priority Date/Time Associated Diagnosis Comments SURGICAL PATHOLOGY REPORT Routine 01/11/2023 8:37 AM EDT SPECIMEN TO PATHOLOGY Routine 01/11/2023 8:37 AM EDT Colonoscopy, Flex, W/Control, Bleeding ([id number]) 01/11/2023 8:10 AM EDT 5 year diarrhea & constipation Colonoscopy, Remv Lesn, Snare ([id number]) 01/11/2023 8:10 AM EDT 5 year diarrhea & constipation COLONOSCOPY Routine 01/11/2023 7:59 AM EDT documented in this encounter Results * Surgical Pathology Report (01/11/2023 8:37 AM EDT) Final Diagnosis [id number] ? Location: 4T; EA08; A The signing pathologist has (i) examined the relevant preparation(s) for the specimen(s) and (ii) rendered or confirmed the diagnosis(es). . ?Surgical Pathology DIAGNOSIS A - Transverse colon polyp, resection: Tubular adenoma. CR-PX Electronically signed by: ?Simon DAVEY, Radha Verified: ??01/19/2023 14:02 ??Pathologist Performed at: ??-[facility], [place] [address] Inbound Customer Service Agent: Allan Saba MD, FCAP, ??CLIA Certificate: [id number] SPECIMEN(S) SUBMITTED A - Transverse colon polyp, resection (1) CLINICAL INFORMATION 77-year-old male; history of polyps, surveillance colonoscopy SPECIMEN PROCESSING A - Labeled/Fixative : Transverse colon polyp, formalin. Quantity/Size: Single, 0.9 x 0.8 x 0.1 cm. Tissue Description: Irregular portion of tyson-pink mucosal tissue. Sections/Process ing: Inked, trisected and entirely submitted in 1 cassette labeled A1. ??pps 01/19/2023 2:02 PM EDT [facility] GI Biopsy 01/11/2023 8:37 AM EDT 01/11/2023 8:37 AM EDT Nicho Kennedy MD PATHOLOGY/CYTOLOGY ORDERABLES Performing Organization Address [facility] de Phone Number [facility] [place] [address] [facility] [place] [address] * Specimen to Pathology (01/11/2023 8:37 AM EDT) AP Specimen 01/11/2023 8:37 AM EDT 01/11/2023 8:37 AM EDT Narrative [facility] - 01/11/2023 8:37 AM EDT Specimen requisition ordered. ??Separate Pathology report to follow Nicho Kennedy MD PATHOLOGY/CYTOLOGY ORDERABLES Performing Organization Address [facility] Co de Phone Number [facility] [place] [address] * COLONOSCOPY (01/11/2023 7:59 AM EDT) COLONOSCOPY [facility] Endoscopy Procedure Date: 01/11/2023 7:59 AM ? Patient Name: Basilio Duff ? Date of : 1945 ? Age: 77 ? Order #: [id number] ? Instrument Name: [id number] ? Procedure: ? Colonoscopy Indications: ? High risk colon cancer ? surveillance: Personal history of ? small colonic polyps, New c Providers: ? Nicho Kennedy, Amparo Olivares, ? Jose De Jesus Baiely RN, Gagan Garcia MD: ?Basilio Bates MD [...] the ? physician, the nurse, the ? student ministry pastor and the business systems technician. The ? procedure was verified in the [...] care under ? the supervision of a WATERPROOF MATERIAL FOLDER was ? determined to be medically ? [...] preparation was evaluated ? using the BBPS ([place] Bowel ? Preparation Scale) with scores of: [...] were successfully ? placed (MR conditional). Clip administrative nursing supervisor: [employer]. There was no bleeding at [...] (MR ? conditional) were placed. Clip ? administrative nursing supervisor: [employer]. ? - Diverticulosis in the sigmoid ? [...] personally performed the entire procedure. ? Nicho Kennedy 01/11/2023 8:50:23 AM Number of Addenda: 0 Note Initiated On: 01/11/2023 7:59 AM PROVATION 01/11/2023 7:59 AM EDT Basilio Bates MD GENERAL SURGICAL ORD ERABLES PROVATION documented in this encounter Visit Diagnoses Not on filedocumented [...] 7:41 AM EDT 100 mL/hr 100 mL/hr documented in this encounter Active and Recently Administered Medications Times are shown in EDT. Continuous Medication Order 01/09/2023 01/10/2023 01/11/2023 lactated ringers infusion (CANCELED) 100 mL/hr, Intravenous, CONTINUOUS, Starting on Anahy 01/11/23 at 0800, Until Anahy 01/11/23 at 0942, Endoscopy (Day of Procedure) 0741 (New Bag - Prov ider: Shwetha Alston RN)0808 (Paused - Provider: Nixon Villanueva CRNA - Comment: Switch to gravity)0809 (Restarted - Provider: Nixon Villanueva CRNA) documented in this encounter Care Teams Yarn Handler Relationship Specialty Start Date End Date Basilio Bates MD [address] [place] [id number] PCP - General General Internal Medicine 09/19/19 documented as of this encounter
--- OUTSIDE RECORDS SUMMARY | 2023-10-29 18:29 | XMS_ITS | Encounter Summary ---
Author Organization [facility] [place] [address] Care Team Providers Care Skein Winder Name Role Phone Uvaldo Aranda DO Primary Care Provider [phone] Encounter Details Date Type Department Care Team (Late st Contact Info) Description 08/26/2018 11:15 AM EDT Office Visit Audiology at [address] [address] Amparo Ma AUD [facility] [place] [address] Asymmetric SNHL (sensorineural hearing loss) Social History [...] Notes * Amparo Ma AUD - 08/26/2018 11:15 AM EDT AUDIOLOGY Basilio Duff was seen today for a hearing instrument check following a hearing re-evaluation. History is positive for asymmetric sensorineural hearing loss. He was accompanied by his . Please refer to the audiogram and associated note for details on otologic symptoms and hearing test results.Mr. Duff reported that the hearing instruments seem to be functioning well. He does not use the devices all the time- he primarily uses them when watching television shows that are difficult for himto understand. His expressed frustration that she has to project her voice in order for him tohear her. He was fit with a [facility] [employer] BICROS system last year and reported a significant improvement in speech understanding when using them. However, he is not interested in purchasing new hearing instruments at this time for financial reasons. The following actions were taken: ?? Both devices were cleaned and a listening check indicated that they were functioning appropriately. ?? Hearing aid programming was adjusted (minor gain adjustments for the left hearing aid) so that the aided responses approximated prescriptive targets for speech without exceeding MPO targets. Mr. Duff was subjectively satisfied with the sound quality of the hearing instruments, and loudness discomfort was denied. Simulated real ear measures were obtained for the left hearing aid, and function of the directionalmicrophones was verified. Mr. Duff was counseled to use the hearing instruments more consistently when he is not outside engaged in yard work. The benefits of new BICROS technology were briefly discussed; Mr. Duff will contact the clinic if interested in scheduling a hearing aid series. RECOMMENDATIONS ?? Patient to contact the clinic if interested in scheduling a hearing aid series. ?? Annual hearing evaluation and hearing aid check, sooner if concerns arise in the interim. Helene Lopez Clinical Coin Machine Mechanic [place] [phone] ; HEARING AID(S): ?? HEARING AID ?? RIGHT ?? LEFT ?? STYLE ?? BICROS Transmitter ?? RITE ?? MAKE/MODEL ?? Phonak ?? Phonak [place] S Smart V ?? CASING COLOR ?? Mocha Taupe ?? Same ?? SERIAL NUMBER ?? [id number]? [id number] ?? BATTERY SIZE ?? 312 ?? 312 [...] SERIAL / INVOICE # ?? Invoice #: [id number] ??03/16/16 ?? Serial #: [id number]? TUBE/LORE (length/dome/comprehensive ophthalmologist size) ?? Length 2 tube ?? Length 2 standard comprehensive ophthalmologist/ medium open phonak dome ?? OTHER / COMMENTS ? Assistive Listening Devices/Wireless Accessories? Device? Phonak iCom ? Serial #? [id number] ? Fit Date? 11/17/10 ? Warranty Exp.? 01/29/12 ? documented in this encounter Plan of Treatment Upcoming Encounters Date Type Department Care Team (Late st Contact Info) Description 08/05/2024 4:30 PM EDT Office [facility] [address] [place] [address] Rich Ivory MD [facility] [address] [place] [address] documented as of this encounter Visit Diagnoses Diagnosis Asymmetric SNHL (sensorineural hearing loss) Sensorineural hearing loss, asymmetrical documented in this encounter Care Teams Skein Winder Relationship Specialty Start Date End Date Uvaldo Aranda DO [address] [place] [address] JAELYN Bacon [phone] PCP - General General Internal Medicine 08/22/18/08/12 documented as of this encounter
--- OUTSIDE RECORDS SUMMARY | 2023-10-29 18:29 | XMS_ITS | Encounter Summary ---
Author Organization [facility] Address [facility] [place] [address] Care Team Providers Care Child Welfare Assistant Name Role Phone Basilio Bates MD Primary Care Provider Encounter Details Date Type Department Care Team (Late st Contact Info) Description 08/29/2022 10:15 AM EDT Office Visit Dermatology at [facility] [address] [place] [phone] Rich Crespo MD [facility] [place] [address] Actinic keratoses Social History Tobacco Use Types Packs/Day [...] as of this encounter Progress Notes * Elena Flores, CCMA - 08/29/2022 10:15 AM EDT Images from the original note [...] Illness: Basilio Duff is a 76 y.o. Patient returns to clinic today for a focused visit, the patient states the following concerns: -Patient states that he has one spot of concern on the left back that is extremely itchy, the lesion has been present for about 6 months. Last visit at Dermatology: 11/07/2021 Last visit with this provider: 11/07/2021 Medications: Reviewed in eD-H Allergies: Reviewed in eD-H Skin Examination: Focused skin examination of the back was normal with the exception of the findings below. Assessment/Plan #. Actinic Keratoses - Ill-defined gritty papules on the face. - Explained premalignant potential of these lesions. - Discussed treatment with cryotherapy. Patient elects to proceed with cryotherapy today. - Instructed patient to return to clinic for re-evaluation if lesion(s) does not resolve as expected with this treatment. Procedure: Destruction of lesion(s) with cryotherapy (LN2). Location(s): As noted above. Number: 1 Discussed procedure and expectations, including risks and benefits. Verbal consent obtained. Treated with LN2. There were no complications; Patient tolerated the procedure well. Post-procedure expectations and wound care reviewed. Other: N/A RTC: As scheduled for FSE with Dr. Woods /// F/U 6 months post Chuck with Dr. Crespo []Note routed to litigation legal secretary []Recall placed in scheduling system [x]Appointment scheduled at checkout Scribe attestation: SUSANA Wells has performed the documentation for this encounter in the presence of and acting as a scribe for RICH CRESPO MD. I performed the above scribed service and agree with the accuracy of the documentation in this encounter. Reviewed and signed by: RICH CRESPO MD Dermatology [facility] documented in this encounter Plan of Treatment Upcoming Encounters Date Type Department Care Team (Late st Contact Info) Description 08/05/2024 4:30 PM EDT Office Visit Dermatology at [facility] [address] [place] [address] Rich Crespo MD [facility] [place] [address] documented as of this encounter Visit Diagnoses Diagnosis Actinic keratoses Actinic keratosis documented in this encounter Care Teams Child Welfare Assistant Relationship Specialty Start Date End Date Basilio Bates MD [address] [place] [address] PCP - General General Internal Medicine 09/19/19 documented as of this encounter
--- OUTSIDE RECORDS SUMMARY | 2023-10-29 18:29 | XMS_ITS | Encounter Summary ---
[place] [address] Care Team Providers Care Exterminator Termite Name Role Phone Basilio Bates MD Primary Care Provider [phone] Encounter Details Date Type Department Care Team (Late st Contact Info) Description 12/29/2020 [place] [address] Tabatha Chow Social History Tobacco Use Types Packs/Day Years [...] encounter Miscellaneous Notes * Telephone Encounter - Tabatha Chow - 12/29/2020 1:13 PM EDT Basilio called back to confirm that the appointment of 01/17 was canceled. documented in this encounter Plan of Treatment Upcoming Encounters Date Type Department Care Team (Late st Contact Info) Description 08/05/2024 4:30 PM EDT Office Visit Dermatology at [facility] [address] [place] [address] Rich Ivory MD [facility] DR [address] [place] [address] documented as of this encounter Visit Diagnoses Not on filedocumented in this encounter Care Teams Exterminator Termite Relationship Specialty Start Date End Date Basilio Bates MD [address] [place] [address] PCP - General General Internal Medicine 09/19/19 documented as of this encounter
--- OUTSIDE RECORDS SUMMARY | 2023-10-29 18:29 | XMS_ITS | Encounter Summary ---
[place] [address] Care Team Providers Care Wool Hanker Name Role Phone Basilio Bates MD Primary Care Provider Encounter Details Date Type Department Care Team (Late st Contact Info) Description 08/28/2022 11:15 AM EDT Office Visit Audiology at [address] [address] Amparo Ma AUD [facility] [place] [address] Asymmetric SNHL (sensorineural hearing loss) Social History [...] Progress Notes * Amparo Ma, HALEIGH - 08/28/2022 11:15 AM EDT AUDIOLOGY Basilio Duff was seen today for a hearing aid check following a hearing re- evaluation. History ispositive for asymmetric sensorineural hearing loss. Please refer to the audiogram and associated note for details on otologic symptoms and hearing test results. Mr. Duff reported that the hearing instruments are working well. He is using them more consistently than he did his previous set. The left hearing aid will periodically decrease in volume when the bluetooth on his iPhone 11 is enabled, which can be distracting. The following actions were taken: Otoscopy showed clear ear canals bilaterally. Both devices were cleaned and a listening check indicated that they were functioning. Domes and waxfilters were replaced. Simulated real ear measures approximated those obtained at the last hearing aid check appointment. Function of the directional microphones was verified in the test box. No changes to hearing aid programming were made. [employer] was contacted to discuss the volume attenuation that Mr. Duff notices when theaid is connected to the iPhone. Microphone attenuation is already set to 0. [employer] was unableto provide resolution to the problem. It is possible that Mr. Duff is receiving notifications fromthe many apps/ programs downloaded to the phone. He will disable the notifications to see if this helps. RECOMMENDATIONS Annual hearing evaluation and hearing aid check, sooner if concerns arise in the interim. Haleigh Lopez [place] [address] ; AMPLIFICATION EQUIPMENT LIST: HEARING AID RIGHT LEFT Make/Model/Style Phonak CROS P 13 Phonak Audeo P90 13 Casing Color Silver Silver Serial Number [id number] Battery Size 13 13 Invoice number/date [id number] 07/22/2021 [id number] 07/22/2021 Other Comments PROGRAM/SETTINGS Fitting Algorithm DSL-Adult DSL-Adult Verification Method REM REM SII (w/65 dBSLP) unaided/aided Programs Autosense OS Other Comments >active features: CROS Volume >disabled features: >active features: VC >disabled features: JOHNSON WARRANTY Original Fit Date 08/09/2021 08/09/2021 Current Status 10/19/2024 10/19/2024 EARMOLD (if BTE JOHNSON) Lab Earmold / Slim tube / LORE / Dome specifics Length 1 alumnae secretary/ CROS tube, medium open dome Length 1 M alumnae secretary/ small vented dome Impression Date Invoice number/date Other Comments ACCESSORIES Make/Model (color) Serial Number Warranty date Invoice number/date Settings Other Comments documented in this encounter Plan of Treatment Upcoming Encounters Date Type Department Care Team (Late st Contact Info) Description 08/05/2024 4:30 PM EDT Office Visit Dermatology at [facility] [address] [place] [address] Rich Ivory MD [facility] [place] [address] documented as of this encounter Visit Diagnoses Diagnosis Asymmetric SNHL (sensorineural hearing loss) Sensorineural hearing loss, asymmetrical documented in this encounter Care Teams Wool Hanker Relationship Specialty Start Date End Date Basilio Bates MD [address] [place] [address] PCP - General General Internal Medicine 09/19/19 documented as of this encounter
--- OUTSIDE RECORDS SUMMARY | 2023-10-29 18:29 | XMS_ITS | Encounter Summary ---
[place] [address] Care Team Providers Care Physical Ther Name Role Phone Basilio Bates MD Primary Care Provider Encounter Details Date Type Department Care Team (Late st Contact Info) Description 08/24/2021 4:00 PM EDT Office Visit Audiology at [address] [address] Amparo Ma AUD [facility] [place] [address] Asymmetric SNHL (sensorineural hearing loss) Social History [...] Progress Notes * Amparo Ma, HALEIGH - 08/24/2021 4:00 PM EDT AUDIOLOGY HEARING AID CHECK Basilio Duff returns today after fitting of a BICROS system. History is positive for asymmetric sensorineural hearing loss. Mr. Duff reported that the hearing instruments seem to be working well. They feel comfortable in his ears. His ability to understand depends on the circumstance- if it is noisy it can still be challenging. His feels he is hearing better than he did with his previous hearing aids. He was able to understand her better in the car, even when she is sitting on his rightside. Mr. Duff reported that the left hearing aid sometimes gets softer when he receives a notification from his phone. The following actions were taken: ?? Otoscopy showed clear ear canals and no signs of irritation from the hearing instruments. ?? Microphone attenuation was changed to 0 for all bluetooth streaming programs. Plan: Annual audiologic evaluation and hearing aid check. Patient was advised to contact the clinic if concerns arise in the interim. Haleigh Lopez [place] [address] ; AMPLIFICATION EQUIPMENT LIST: HEARING AID RIGHT LEFT Make/Model/Style Phonak CROS??P 13?? Phonak Audeo P90??13 Casing Color Silver Silver Serial Number ??[id number] Battery Size 13 13 Invoice number/date ??[id number] ??07/22/2021 ?[id number] ??07/22/2021 Other Comments ? PROGRAM/SETTINGS ? Fitting Algorithm DSL-Adult DSL-Adult Verification Method ??REM REM SII (w/65 dBSLP) unaided/aided ? Programs ?? Autosense OS Other Comments >active features: CROS volume >disabled features: >active features: hearing aid volume >disabled features: Program change JOHNSON WARRANTY ? Original Fit Date 08/09/2021 08/09/2021 Current Status 10/19/2024 10/19/2024 EARMOLD (if BTE JOHNSON) ? Lab ? Earmold / Slim tube / LORE / Dome specifics Length 1 director of scout work/ CROS tube, medium open dome Length 1 M director of scout work/ small vented dome Impression Date ? Invoice number/date ? Other Comments ? ACCESSORIES ? Make/Model (color) ? Serial Number ? Warranty date ? Invoice number/date ? Settings ? Other Comments ? HEARING AID(S): ?? HEARING AID ?? RIGHT ?? LEFT ?? STYLE ?? BICROS Transmitter ?? RITE ?? MAKE/MODEL ?? Phonak ?? Phonak Audeo S Smart V ?? CASING COLOR ?? Mocha Taupe ?? Same ?? SERIAL NUMBER ?? [id number]? [id number] ?? BATTERY SIZE ?? 312 ?? 312 ?? BATTERY CLUB ? PROGRAM/SETTINGS ? FITTING ALGORITHM ?? N/A ?? DSL-Adult ?? VERIFICATION METHOD ?? N/A ?? REM ?? PROGRAMS ? Soundflow ?? DISABLED FEATURES ? OTHER COMMENTS ?? VC enabled ? HEARING AID WARRANTY ? ORIGINAL FIT DATE ?? 10/20/10 ?? 10/20/10 ?? CURRENT STATUS ?? 08.31.2017 [facility] All-Make?? 08.31.2017 [facility] All-Make?? EARMOLD (if BTE JOHNOSN) ? LAB ?? Phonak ? EM (Style/material/vent/color) ?? CROS-Tip ? IMPRESSION DATE ?? 08/26/10 ? SERIAL / INVOICE # ?? Invoice #: [id number] ??03/16/16 ?? Serial #: [id number]? TUBE/LORE (length/dome/director of scout work size) ?? Length 2 tube ?? Length 2 standard director of scout work/ medium open phonak dome ?? OTHER / COMMENTS ? Assistive Listening Devices/Wireless Accessories? Device? Phonak iCom ? Serial #? [id number] ? Fit Date? 11/17/10 ? Warranty Exp.? 01/29/12 ? documented in this encounter Plan of Treatment Upcoming Encounters Date Type Department Care Team (Late st Contact Info) Description 08/05/2024 4:30 PM EDT Office Visit Dermatology at [facility] [address] [place] [address] Rich Ivory MD [facility] [address] [place] [address] documented as of this encounter Visit Diagnoses Diagnosis Asymmetric SNHL (sensorineural hearing loss) Sensorineural hearing loss, asymmetrical documented in this encounter Care Teams Physical Ther Relationship Specialty Start Date End Date Basilio Bates MD [address] [place] [address] PCP - General General Internal Medicine 09/19/19 documented as of this encounter
--- OUTSIDE RECORDS SUMMARY | 2023-10-29 18:29 | XMS_ITS | Encounter Summary ---
Author Organization [facility] [place] [address] Care Team Providers Care Mica Layer Name Role Phone Yarelis Shaikh MD Primary Care Provider [phone] Reason for Visit * Auth/Cert Specialty Diagnoses / Procedures Referred By Contac t Referred To Contact Diagnoses screening Procedures PRO COLONOSCOPY, DIAGNOSTIC COLONOSCOPY, DIAGNOSTIC Referral ID Status Reason Start Date Expiration Date Visits Re quested Visits Authorized [id number] 1 1 Encounter Details Date Type Department Care Team (Late st Contact Info) Description 09/28/2017 10:30 AM EDT - 09/28/2017 11:30 AM EDT Surgery [place] [phone] Francisco Garland MD [facility] [place] [address] COLONOSCOPY, POLYPECTOMY, REMOVAL LESION BY SNARE (WRVU 4.57) Social History Tobacco Use Types Packs/Day Years [...] Sign Reading Time Taken Comments Blood Pressure 107/78 09/28/2017 11:00 AM EDT Pulse 75 09/28/2017 10:44 AM EDT Temperature - - Respiratory Rate 16 09/28/2017 11:00 AM EDT Oxygen Saturation 97% 09/28/2017 11:00 AM EDT Inhaled Oxygen Concentration - - Weight 86.2 kg (190 lb) 09/28/2017 9:32 AM EDT Height 177.8 cm (5' 10) 09/28/2017 9:32 AM EDT Body Mass Index 27.26 09/28/2017 9:32 AM EDT documented in this encounter Discharge Instructions * Discharge Instructions* Qing Bush RN - 09/28/2017 10:46 AM EDT Colonoscopy and tiny polyp removal What to expect after the procedure You may feel a little more gassy or bloated than usual, this is normal. You should expect the return of normal bowel function in the next 2 to 3 days. Because some polyps were removed, you may see a little blood with the next few bowel movements, this should be a small amount ( less than a few tablespoons) and will resolve on it's own. ACTIVITY Because of the sedation that you received Your judgement and reaction time are effected ?? Go home and rest for the remainder for the day. You may resume your normal activities tomorrow ?? Change from one position to the next slowly because you may lose your balance unexpectedly. ?? Be careful on stairs, as you may be unsteady. ?? Avoid strenuous activity for 48 to 72 hrs FOR THE NEXT 24 HRS ?? DO NOT DRIVE OR OPERATE MACHINERY ?? DO NOT DRINK ALCOHOLIC BEVERAGES ?? DO NOT SIGN LEGAL DOCUMENTS ?? If you are a smoker: DO NOT SMOKE WHILE YOU ARE ALONE Diet ?? Start by eating small portions of foods that ordinarily will not upset your stomach, avoid gas producing foods for the next few days. ?? Be gentle with what you choose to start with ?? Drink plenty of fluids ( unless your doctor has told you not to). ?? A soft diet may be helpful for the next 3 days as this may help to keep the stools soft Medicines Avoid medicines that influence the way your blood clots for the next week. These would include anti-inflammatory medicine, such as ibuprofen( Advil, Motrin) and naproxen ( Aleve). If you need something for discomfort, Tylenol (Acetaminophen) is safe if used as directed. Your Doctor will tell you when to restart your prescribed blood thinners The IV site-- slight tenderness, or redness is normal, you can use warm compresses if you get concerned. If the tenderness +/or redness increases or foul drainage and a red streak occurs, please contact your PCP immediately. When should you call for help? Call 911 anytime you think you may need emergency care. For example If you pass out (loss of consciousness) If you pass maroon or bloody stools If you have severe belly pain Call your healthcare provider or seek immediate medical care if: Your stools are black or tar like Your stools have streaks of blood that is more pronounced with each BM You have belly pain, or your belly is swollen and firm You vomit You have a fever You are very dizzy Watch closely for changes in your health, and be sure to contact your doctor if you have any problems. Your Doctor will let you know when you will need your next colonoscopy. The results of your test and your risk for colorectal cancer will help your doctor decide how often you need to be checked. Sunday-Sunday Same Day Endo [phone]-[phone] Otherwise contact [phone] and ask to speak to the biometrics experimentalist carbon paper coating machine setter Follow up care is a ontiveros part of your treatment and safety. Be sure to make and go to all appointments, and call your doctor if you are having problems. Discharge instructions reviewed with patient who expresses understanding documented in this encounter Medications at Time of Discharge Medication Sig Dispensed Refills Start Date End Date multivitamin (THERAGRAN) Tablet Take 1 tablet by mouth daily. aspirin 325 mg tablet Take 325 mg by mouth daily. fluocinolone (DERMA-SMOOTHE) 0.01 % OilIndications:Scalp psoriasis Apply topically to the scalp nightly as needed 120 mL 3 03/28/2016 07/04/2018 tacrolimus (PROTOPIC) 0.1 % ointment Apply 1 applicator topically 2 times daily. 100 g PRN 02/07/2011 11/29/2017 documented as of this encounter H&P Notes * Francisco Garland MD - 09/28/2017 9:33 AM EDT Gastroenterology and Hepatology Pre-Procedure History and Physical Exam Procedure: Colonoscopy: Indication: screen Patient Active Problem List Diagnosis Code ??? 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 Actinic keratoses L57.0 ??? SK (seborrheic keratosis) L82.1 ??? Sensorineural hearing loss, asymmetrical H90.5 EXAM: HEENT: Airway examined, oropharynx clear Mallampati Score: II (soft palate, uvula, fauces visible) LUNGS: Clear to auscultation HEART: Regular rate and rhythm, normal S1, S2 ABDOMEN: Normal bowel sounds, soft, non tender, non distended, A/P Proceed with the planned endoscopic procedure. ASA 1 - Normal health patient Sedation Plan: moderate (conscious sedation) Risks and benefits of the procedure explained to the patient. Consent signed. documented in this encounter Plan of Treatment Upcoming Encounters Date Type Department Care Team (Late st Contact Info) Description 08/05/2024 4:30 PM EDT Office Visit Dermatology at [facility] [address] [place] [address] Rich Ivory MD [facility] [place] [address] documented as of this encounter Procedures Procedure Name Priority Date/Time Associated Diagnosis Comments SPECIMEN TO PATHOLOGY Routine 09/28/2017 10:37 AM EDT SURGICAL PATHOLOGY REPORT Routine 09/28/2017 10:25 AM EDT COLONOSCOPY, POLYPECTOMY, REMOVAL LESION BY SNARE (WRVU 4.57) 09/28/2017 10:02 AM EDT screening COLONOSCOPY Routine 09/28/2017 9:37 AM EDT documented in this encounter Results * Specimen to Pathology (09/28/2017 10:37 AM EDT) AP Specimen 09/28/2017 10:3 7 AM EDT 09/28/2017 1:39 PM EDT Narrative [facility] - 09/28/2017 1:39 PM EDT Specimen requisition ordered. ??Separate Pathology report to follow Resulting Agency Comment Spec In Lab Francisco Garland MD PATHOLOGY/CYTOLOGY O [facility] [place] [address] * Surgical Pathology Report (09/28/2017 10:25 AM EDT) Final Diagnosis [id number] ? Location: 4T; EA09; A The signing pathologist has (i) examined the relevant preparation(s) for the specimen(s) and (ii) rendered or confirmed the diagnosis(es). . ?Surgical Pathology DIAGNOSIS Cecum, ??polypectomy: - Tubular adenoma. CR-PX Electronically signed by: ??Samuel Lira MD Verified: ??10/02/2017 ?Pathologist Performed at: ??-[facility] [place] Dept. of Pathology, [place], [place] CLINICAL INFORMATION Specimen Submitted: A - Cecum polyp Clinical History and Diagnosis: 71-year-old male screening colonoscopy SPECIMEN PROCESSING A - Labeled/Fixativ e: Cecum polyp, formalin. Quantity/Size: Single, 0.3 cm. Tissue Description: ??Soft, pink tissue . Sections/Proces sing: (T1) ??sns 10/02/2017 4:00 PM EDT [facility] GI Biopsy 09/28/2017 10:2 5 AM EDT 09/28/2017 10:25 AM EDT Francisco Garland MD PATHOLOGY/CYTOLOGY O [facility] [place] [address] * COLONOSCOPY (09/28/2017 9:37 AM EDT) COLONOSCOPY [facility] Endoscopy Procedure Date: 09/28/2017 9:37 AM ? Patient Name: Basilio Duff ? Date of : 1945 ? Age: 71 ? Order #: [id number] ? Instrument Name: [id number] ? Procedure: ? Colonoscopy Indications: ? Screening for colorectal malignant ? neoplasm Providers: ? Francisco Garland MD, Jose De Jesus Bailey, ? RN, Janell Garcia MD: ?Yarelis Shaikh MD Medicines: ? Midazolam 4 mg IV, Fentanyl 150 ? micrograms IV Complications: ? No immediate complications. Procedure: ? The procedure, indications, benefits, ? risks and alternatives were explained ? to the patient. Specifically ? discussed were potential ? complications including, but not ? limited to, bleeding, perforation, ? infection, missing a cancer, and ? adverse medication reactions. The ? patient was placed in the left ? lateral decubitus position, and a ? digital rectal exam was performed. ? The Colonoscope was inserted in the ? anus and under direct visualization, ? advanced to the terminal ileum. ? Careful inspection was made as the ? colonoscope was withdrawn. The ? colonoscopy was performed without ? difficulty. The patient tolerated the ? procedure well. The quality of the ? bowel preparation was evaluated using ? the BBPS ([place] Bowel Preparation ? Scale) with scores of: Right Colon = ? 3, Transverse Colon = 3 and Left ? Colon = 3 (entire mucosa seen well ? with no residual staining, small ? fragments of stool or opaque liquid). ? The total BBPS score equals 9. Scope ? withdrawal time was 13 minutes. ? Findings: ? The perianal and digital rectal examinations were ? normal. ? A 2 mm polyp was found in the cecum. The polyp was ? sessile. The polyp was removed with a cold biopsy ? forceps. Resection and retrieval were complete. ? The terminal ileum appeared normal. ? A few small and large-mouthed diverticula were found ? in the sigmoid colon, descending colon and transverse ? colon. ? Internal hemorrhoids were found during retroflexion. ? The hemorrhoids were small. ? Moderate Sedation: ? I was present during the intraservice time as ? documented by the sedation RN. Impression: ?- One 2 mm polyp in the cecum, ? removed with a cold biopsy forceps. ? Resected and retrieved. ? - The examined portion of the ileum ? was normal. ? - Diverticulosis in the sigmoid ? colon, in the descending colon and in ? the transverse colon. ? - Internal hemorrhoids. Recommendation: ?- Await pathology results. ? Attending Participation: ? I personally performed the entire procedure. ? _ Francisco Garland MD 09/28/2017 10:39:10 AM This report has been signed electronically. Number of Addenda: 0 Note Initiated On: 09/28/2017 9:37 AM PROVATION 09/28/2017 9:37 AM EDT Yarelis A Neel [facility] ERABLES [employer]ATION documented in this encounter Visit Diagnoses Not on filedocumented in this encounter Administered Medications Inactive Administered Medications - up to 3 most recent administrations Medication Order MAR Action Action Date Dose Rate Site fentaNYL 50 mcg/mL multi-dose injection ONCE PRN, Starting on Sun09/28/17 at 1010, Until Sun09/28/17 at 1322, Intra-Operative (Intra-Procedure), Routine Given 09/28/2017 10:18 AM EDT 50 mcg Given 09/28/2017 10:14 AM EDT 50 mcg Given 09/28/2017 10:10 AM EDT 50 mcg lactated Ringers infusion 100 mL/hr, Intravenous, CONTINUOUS, Starting on Sun09/28/17 at 1000, Until Sun09/28/17 at 1107, Endoscopy (Day of Procedure) New Bag 09/28/2017 10:02 AM EDT 100 mL/hr 100 mL/hr midazolam (PF) (VERSED) 1 mg/mL multi-dose injection ONCE PRN, Starting on Sun09/28/17 at 1010, Until Sun09/28/17 at 1322, Intra-Operative (Intra-Procedure), Routine Given 09/28/2017 10:18 AM EDT 1 mg Given 09/28/2017 10:14 AM EDT 1 mg Given 09/28/2017 10:10 AM EDT 2 mg documented in this encounter Active and Recently Administered Medications Times are shown in EDT. Continuous Medication Order 09/26/2017 09/27/2017 09/28/2017 lactated Ringers infusion (CANCELED) 100 mL/hr, Intravenous, CONTINUOUS, Starting on Sun09/28/17 at 1000, Until Sun09/28/17 at 1107, Endoscopy (Day of Procedure) 1002 (New Bag - Prov ider: Chelle Sanz RN) PRN Medication Order 09/26/2017 09/27/2017 09/28/2017 fentaNYL 50 mcg/mL multi-dose injection (CANCELED) ONCE PRN, Starting on Sun09/28/17 at 1010, Until Sun09/28/17 at 1322, Intra-Operative (Intra-Procedure), Routine 1010 (Given - Provid er: Jose De Jesus Bailey RN)1014 (Given - Provider: Jose De Jesus Bailey RN)1018 (Given - Provider: Jose De Jesus Bailey RN) midazolam (PF) (VERSED) 1 mg/mL multi-dose injection (CANCELED) ONCE PRN, Starting on Sun09/28/17 at 1010, Until Sun09/28/17 at 1322, Intra-Operative (Intra-Procedure), Routine 1010 (Given - Provid er: Jose De Jesus Bailey RN)1014 (Given - Provider: Jose De Jesus Bailey RN)1018 (Given - Provider: Jose De Jesus Bailey RN) documented in this encounter Care Teams Mica Layer Relationship Specialty Start Date End Date Yarelis Shaikh MD [facility] [address] [place] [address] PCP - General 02/15/10 12/20/17 documented as of this encounter
--- OUTSIDE RECORDS SUMMARY | 2023-10-29 18:29 | XMS_ITS | Encounter Summary ---
Author Organization [facility] [place] [address] Care Team Providers Care Harpoon Engagement Planning Operator Name Role Phone Basilio Bates MD Primary Care Provider [phone] Encounter Details Date Type Department Care Team (Latest Contact Info) Description 08/16/2022 Travel Social History Tobacco Use Types Packs/Day [...] 4:30 PM EDT Office Visit Dermatology at [facility] [address] [place] [address] Rich Ivory MD [facility] [place] [address] documented as of this encounter Visit Diagnoses Not on filedocumented in this encounter Care Teams Harpoon Engagement Planning Operator Relationship Specialty Start Date End Date Basilio Bates MD [address] [place] [address] PCP - General General Internal Medicine 09/19/19 documented as of this encounter
--- OUTSIDE RECORDS SUMMARY | 2023-10-29 18:29 | XMS_ITS | Encounter Summary ---
Author Organization [facility] Address [facility] [place] [address] Care Team Providers Care Family Health Nurse Practitioner Name Role Phone Uvaldo Aranda DO Primary Care Provider [phone] Reason for Visit * Reason Comments Skin Check Encounter Details Date Type Department Care Team (Late st Contact Info) Description 08/22/2018 3:30 PM EDT Office Visit Dermatology at [facility] [address] [place] [place] [address] Rich Ivory MD [facility] [place] [address] AK (actinic keratosis); Seborrheic keratosis, inflamed Social History Tobacco Use Types Packs/Day Years [...] of this encounter Progress Notes * Rich Ivory MD - 08/22/2018 3:30 PM EDT Images from the original note were not included. Basilio Duff 08/22/2018 [id number] Roney Ivory MD ([id number]) Chief Problem: 1. Pigmented Lesion and Skin Cancer Examination 2. History of actinic keratoses, scalp psoriasis, rosacea History: 72 y.o. year old male. Established patient to me. No significant changes in health or medications since last visit. Patient presents to the clinic today for a full skin cancer examination with history as listed above. Specific areas of concern today include a dark lesion on the right shoulder and a pink lesion on the abdomen. Neither area is tender or bleeding and no previous treatment. Medications: reviewed All: reviewed Review of Systems: Feels well, no fatigue, no weight loss, no other skin concerns Current Outpatient Medications on File Prior to Visit Medication Sig Dispense Refill ??? fluocinolone (DERMA-SMOOTHE) 0.01 % Oil Apply topically to the scalp nightly as needed 120 mL 0 ??? tacrolimus (PROTOPIC) 0.1 % Ointment Apply topically 1-2 times daily to affected areas 100 g 0 ??? multivitamin (THERAGRAN) Tablet Take 1 tablet by mouth daily. ??? aspirin 325 mg tablet Take 325 mg by mouth daily. No current facility-administered medications on file prior to visit. Examination: Patient was alert, well-appearing and in no noticeable distress. A skin examination was performed. This includes the head, neck, face and scalp including behind the ears. The chest, abdomen, back, and axillae, as well as the arms, hands, palms, fingers. Legs, feet, toes and soles were also examined. Specific findings: 1. Solar Lentigines, sun exposed areas 2. Clavus, right foot 3. Inverse Psoriasis, right axilla 4. Inflamed Seborrheic keratosis, right shoulder x 1 5. Actinic keratosis, face x 3 6. Seborrheic keratosis, trunk and extremities Assessment/Diagnosis: 1. Solar Lentigines 2. Clavus 3. Inverse psoriasis 4. Inflamed Seborrheic keratosis, treated with LN2 today. 5. Actinic keratosis, treated with LN2 today. 6. Seborrheic keratosis Procedure: 1. LN2, AKs x [address] to Inflamed SK x 1 Treatment/Plan: Discussion - Spent over half of this visit discussing pathophysiology and the diagnosis, and counselling this patient on treatment options, expectations and follow-up plan. - Specifically discussed: 1. Sun avoidance re-emphasized, sunscreen, hats, clothing as always. 2. Joint decision made to treat AK's with LN2 today. 3. Joint decision made to continue to treat inverse psoriasis with Protopic ointment bid, as needed. Patient has at home. 4. Joint decision made to treat the inflamed sk on the right shoulder with LN2 today. Follow up: 1 year skin cancer exam, sooner if needed I am documenting this encounter acting as the scribe for and in the presence of Dr. Ivory,Barbara Hess LPN and Alyson King, Clinical Scribe I performed the above scribed service and agree with the accuracy of the documentation in this encounter, MD Roney Napoles M.D. Section of Dermatology documented in this encounter Plan of Treatment Upcoming Encounters Date Type Department Care Team (Late st Contact Info) Description 08/05/2024 4:30 PM EDT Office Visit Dermatology at [address] [address] Rich Ivory MD [facility] [place] [address] documented as of this encounter Visit Diagnoses Diagnosis AK (actinic keratosis) Actinic keratosis Seborrheic keratosis, inflamed Inflamed seborrheic keratosis documented in this encounter Care Teams Family Health Nurse Practitioner Relationship Specialty Start Date End Date Uvaldo Aranda DO [address] [place] [address] JAELYN Bacon [address] PCP - General General Internal Medicine 08/22/18 6/2 08/12 documented as of this encounter
--- OUTSIDE RECORDS SUMMARY | 2023-10-29 18:29 | XMS_ITS | Encounter Summary ---
Author Organization [facility] Address [facility] [address] Care Team Providers Care Seed Corn Manager Production Name Role Phone Basilio Bates MD Primary Care Provider [phone] Encounter Details Date Type Department Care Team (Latest Contact Info) Description 11/29/2022 Travel Social History Tobacco Use Types Packs/Day [...] at [facility] [address] [place] [address] Rich Ivory MD [facility] DR [address] [place] [address] documented as of this encounter Visit Diagnoses Not on filedocumented in this encounter Care Teams Seed Corn Manager Production Relationship Specialty Start Date End Date Basilio Bates MD [address] [place] [id number] PCP - General General Internal Medicine 09/19/19 documented as of this encounter
--- OUTSIDE RECORDS SUMMARY | 2023-10-29 18:29 | XMS_ITS | Encounter Summary ---
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 Beny Smith MD [address] [place] [phone] Beny Smith MD [facility] [place] [address] Referral ID Status Reason Start Date Expiration Date V isits Requested Visits Authorized [id number] Closed Consult, Test & Treat 11/12/2019 11/11/2020 1 1 Encounter Details Date Type Department Care Team (Late st Contact Info) Description 12/06/2019 8:00 AM EDT Office [place] [address] Beny Smith MD [facility] [place] [address] Glaucoma suspect of both eyes Social History Tobacco Use [...] Progress Notes * Beny Smith MD - 12/06/2019 8:00 AM EDT VF defect OD: Consistent with BRAO and stable from prior exams provided from outside [facility]. Systemiccardiovascular risk factors monitored by Dr. Bates and under control. Glaucoma suspect OU: No evidence of VF progression OD and no evidence of glaucomatous defect OS. IOP borderline based on pachymetry today as cornea slightly thin. Headache: Normal exam today and no evidence of ophthalmic source of headache. No signs of intraocular inflammation or symptomatic ocular hypertension. No evidence of optic nerve edema. Plan: Will follow VF defect and glaucoma suspect concern here. Recheck in one year with HVF OU , dilation and OCT. May discuss further headache work up such as labs or neurology with Dr. Bates. documented in this encounter Plan of Treatment Upcoming Encounters Date Type Department Care Team (Late st Contact Info) Description 08/05/2024 4:30 PM EDT Office Visit Dermatology at [facility] [address] [place] [address] Rich Ivory MD [facility] [place] [address] documented as of this encounter Procedures Procedure Name Priority Date/Time Associated Diagnosis Comments AUTOMATED VISUAL FIELD - EXTENDED - OU- BOTH EYES Routine 12/06/2019 10:14 AM EDT Glaucoma suspect of both eyes documented in this encounter Results * Automated Visual Field - Extended - OU - Both Eyes (12/06/2019 10:14 AM EDT) Anatomical Region Laterality Modality Other Narrative 12/06/2019 10:14 AM EDT Right Eye Threshold was 24-2. Strategy was KEELY. Reliability was good. Left Eye Threshold was 24-2. Strategy was KEELY. Reliability was good. Notes Reliability Good OU VFI: ??82 OD/ 100 OS MD: ??-3.84 OD/ +0.26 OS PSD: ??8.82 OD/ 1.34 OS Interpretation: ??Superior central defect OD/Full OS Beny Smith MD [facility] ORDERABLES documented in this encounter Visit Diagnoses Diagnosis Glaucoma suspect of both eyes Preglaucoma, unspecified documented in this encounter Care Teams Optometry Doctor Relationship Specialty Start Date End Date Basilio Bates MD [address] [address] PCP - General General Internal Medicine 09/19/19 documented as of this encounter
--- OUTSIDE RECORDS SUMMARY | 2023-10-29 18:29 | XMS_ITS | Encounter Summary ---
[place] [address] Care Team Providers Care Beauty Artist Name Role Phone Basilio Bates MD Primary Care Provider Reason for Visit * Diagnostic Test (Routine) - Closed Specialty Diagnoses / Procedures Referred By Connie camp Referred To Contact Radiology Diagnoses Right trigeminal neuralgia Procedures MRI Angiogram Head wo & MRI Brain wwo Contrast MRI Angiogram Head & MRI Brain wwo Contrast MRI Brain wo Contrast Basilio Bates MD [address] [place] [address] [place] [address] Referral ID Status Reason Start Date Expiration Date V isits Requested Visits Authorized [id number] Closed Specialty Service Requested 12/02/2021 06/02/2023 1 1 Encounter Details Date Type Department Care Team (Latest Contact Info) Description 12/06/2021 3:03 PM EDT - 12/06/2021 11:59 PM EDT [place] [address] Basilio Bates MD [address] [place] [address] Right trigeminal neuralgia Discharge Disposition: Home Social History Tobacco Use [...] 4:30 PM EDT Office Visit Dermatology at [facility] [address] [place] [address] Rich Ivory MD [facility] [place] [address] documented as of this encounter Procedures Procedure Name Priority Date/Time Associated Diagnosis Comments MRI ANGIOGRAM HEAD WO & MRI BRAIN WWO CONTRAST Routine 12/06/2021 5:16 PM EDT Right trigeminal neuralgia documented in this encounter Results * MRI Angiogram Head wo & MRI Brain wwo Contrast (12/06/2021 5:16 PM EDT) Anatomical Region Laterality Modality Head Magnetic Resonan ce Addenda Addendum by Alonso Pickard MD on 12/08/2021 6:45 AM EDT --------ADDENDUM #1-------- Addendum for administrative purposes: TECHNIQUE: MR Angiogram of the head wo contrast and MRI of the brain performed before and after the intravenous administration of 19cc Dotarem. 3-D MIP reconstructions were created. Thank you for letting us participate in the care of this patient. ??If you are a health care provider and have any questions regarding this report, please contact the number below. ??For patients who have questions please contact the health career resource specialist that requested your imaging first. ? Electronically signed by: Alonso Pickard MD, [facility] ([phone]), at 12/07/2021 10:22 AM --------ORIGINAL REPORT -------- EXAMINATION: MRI ANGIOGRAM HEAD & MRI BRAIN WWO CONTRAST CLINICAL HISTORY: trigeminal neuralgia right TECHNIQUE: MRI of the brain and MR Angiogram of the head performed before and after the intravenous administration of 19cc Dotarem. 3-D MIP reconstructions were created. COMPARISON: MRI brain 11/20/2019 FINDINGS: MRI brain (trigeminal protocol): No brainstem signal abnormality. No mass or abnormal enhancement along the cisternal segment of the 5th cranial nerves extending into Meckel's cave and the cavernous sinuses and down along the V1, V2, and V3 branches bilaterally along their respective courses out to the skin. On the highly T2-weighted, thin cut sequence, there is a vessel that courses immediately underneath the cisternal segment of the left 5th cranial nerve. 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 No additional mass lesion. No acute intracranial hemorrhage, mass effect, hydrocephalus, midline shift, or acute infarction. Small number scattered T2 bright white matter foci which are nonspecific but most consistent with mild chronic small vessel disease. The subarachnoid spaces are within normal limits for the patient's age. Incidental parafalcine ossifications are again seen. MRA head: No aneurysm, vascular malformation, significant arterial stenosis, cut off, or other significant arterial abnormality. There is a 1 to 2 mm infundibulum at the origin of the left posterior communicating artery, a normal variant. IMPRESSION: MRI brain (trigeminal protocol): 1. 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 2. ??No abnormality along the course of either 5th cranial nerve from the brainstem out to the skin. 3. ??Mild chronic small vessel disease. 4. ??On the highly T2-weighted, thin cut sequence, there is a vessel that courses immediately underneath the cisternal segment of the left 5th cranial nerve. MRA head: Normal study. Thank you for letting us participate in the care of this patient. ??If you are a health care provider and have any questions regarding this report, please contact the number below. ??For patients who have questions please contact the health career resource specialist that requested your imaging first. ? Electronically signed by: Alonso Pickard MD, [facility] ([phone]), at 12/06/2021 8:34 PM Impressions 12/06/2021 8:34 PM EDT MRI brain (trigeminal protocol): 1. 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 2. ??No abnormality along the course of either 5th cranial nerve from the brainstem out to the skin. 3. ??Mild chronic small vessel disease. 4. ??On the highly T2-weighted, thin cut sequence, there is a vessel that courses immediately underneath the cisternal segment of the left 5th cranial nerve. MRA head: Normal study. Thank you for letting us participate in the care of this patient. ??If you are a health care provider and have any questions regarding this report, please contact the number below. ??For patients who have questions please contact the health career resource specialist that requested your imaging first. ? Electronically signed by: Alonso Pickard MD, [facility] ([phone]), at 12/06/2021 8:34 PM Narrative 12/06/2021 8:34 PM EDT EXAMINATION: MRI ANGIOGRAM HEAD & MRI BRAIN WWO CONTRAST CLINICAL HISTORY: trigeminal neuralgia right TECHNIQUE: MRI of the brain and MR Angiogram of the head performed before and after the intravenous administration of 19cc Dotarem. 3-D MIP reconstructions were created. COMPARISON: MRI brain 11/20/2019 FINDINGS: MRI brain (trigeminal protocol): No brainstem signal abnormality. No mass or abnormal enhancement along the cisternal segment of the 5th cranial nerves extending into Meckel's cave and the cavernous sinuses and down along the V1, V2, and V3 branches bilaterally along their respective courses out to the skin. On the highly T2-weighted, thin cut sequence, there is a vessel that courses immediately underneath the cisternal segment of the left 5th cranial nerve. 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 No additional mass lesion. No acute intracranial hemorrhage, mass effect, hydrocephalus, midline shift, or acute infarction. Small number scattered T2 bright white matter foci which are nonspecific but most consistent with mild chronic small vessel disease. The subarachnoid spaces are within normal limits for the patient's age. Incidental parafalcine ossifications are again seen. MRA head: No aneurysm, vascular malformation, significant arterial stenosis, cut off, or other significant arterial abnormality. There is a 1 to 2 mm infundibulum at the origin of the left posterior communicating artery, a normal variant. Procedure Note Alonso Pickard MD - 12/06/2021 EXAMINATION: MRI ANGIOGRAM HEAD & MRI BRAIN WWO CONTRAST CLINICAL HISTORY: trigeminal neuralgia right TECHNIQUE: MRI of the brain and MR Angiogram of the head performed before and afterthe intravenous administration of 19cc Dotarem. 3-D MIP reconstructions were created. COMPARISON: MRI brain 11/20/2019 FINDINGS: MRI brain (trigeminal protocol): No brainstem signal abnormality. No mass or abnormal enhancement alongthe cisternal segment of the 5th cranial nerves extending into Meckel's caveand the cavernous sinuses and down along the V1, V2, and V3 branches bilaterallyalong their respective courses out to the skin. On the highly T2-weighted, thin cut sequence, there is a vessel thatcourses immediately underneath the cisternal segment of the left 5th cranialnerve. Stable 7 mm enhancing mass lesion within the right internal auditorycanal, not significantly changed since the prior study. No additional mass lesion. No acute intracranial hemorrhage, mass effect, hydrocephalus, midlineshift, or acute infarction. Small number scattered T2 bright white matter foci whichare nonspecific but most consistent with mild chronic small vessel disease.The subarachnoid spaces are within normal limits for the patient's age.Incidental parafalcine ossifications are again seen. MRA head: No aneurysm, vascular malformation, significant arterial stenosis, cutoff, or other significant arterial abnormality. There is a 1 to 2 mm infundibulumat the origin of the left posterior communicating artery, a normal variant. IMPRESSION MRI brain (trigeminal protocol): 1. 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 2. No abnormality along the course of either 5th cranial nerve from the brainstem out to the skin. 3. Mild chronic small vessel disease. 4. On the highly T2-weighted, thin cut sequence, there is a vessel thatcourses immediately underneath the cisternal segment of the left 5th cranialnerve. MRA head: Normal study. Thank you for letting us participate in the care of this patient. If youare a health care provider and have any questions regarding this report,please contact the number below. For patients who have questions please contactthe health career resource specialist that requested your imaging first. Electronically signed by: Alonso Pickard MD, [facility]([phone]), at 12/06/2021 8:34 PM Basilio Bates MD [facility] MRI ORDERABLES documented in this encounter Visit Diagnoses Diagnosis Right trigeminal neuralgia documented in this encounter Administered Medications Inactive Administered Medications - up to 3 most recent administrations Medication Order MAR Action Action Date Dose Rate Site gadoterate meglumine (Dotarem) (0.5 mMol/mL) injection solution 0-100 mL 0-100 mL, Intravenous, ONCE PRN, 1 dose, Starting on Sun12/06/21 at 1716, Until Sun12/06/21 at 1716, Per Protocol, Radiology Contrast, Routine Given 12/06/2021 5:16 PM EDT 19 mLs documented in this encounter Care Teams Beauty Artist Relationship Specialty Start Date End Date Basilio Bates MD [address] [place] [id number] PCP - General General Internal Medicine 09/19/19 documented as of this encounter
--- OUTSIDE RECORDS SUMMARY | 2023-10-29 18:29 | XMS_ITS | Encounter Summary ---
Author Organization [facility] [place] [address] Care Team Providers Care Retail Business Manager Name Role Phone Basilio Bates MD Primary Care Provider Reason for Referral * Audiology Exam (Routine) - Closed Specialty Diagnoses / Procedures Referred By Connie camp Referred To Contact Audiology Diagnoses Trigeminal neuralgia Basilio Bates MD [address] [place] [address] [facility] [address] [place] [phone] Referral ID Status Reason Start Date Expiration Date V isits Requested Visits Authorized [id number] Closed Specialty Service Requested PCP Updated and/or Approved 07/13/2022 07/13/2023 6 6 Encounter Details Date Type Department Care Team (Latest Contact Info) Description 07/13/2022 Transcribe Orders eDH Incoming Referrals [phone] Basilio Bates MD [address] [place], [place] [id number] Trigeminal neuralgia Social History Tobacco Use Types Packs/Day Years [...] PM EDT Office Visit Dermatology at [facility] [address] [place] [address] Rich Ivory MD [facility] [place] [address] Scheduled Referrals Name Type Priority Associated Diagnoses Orde r Schedule Referral to Audiology Outpatient Referral Routine Trigeminal neuralgia Ordered: 07/13/2022 documented as of this encounter Visit Diagnoses Diagnosis Trigeminal neuralgia documented in this encounter Care Teams Retail Business Manager Relationship Specialty Start Date End Date Basilio Bates MD [address] [address] PCP - General General Internal Medicine 09/19/19 documented as of this encounter
--- OUTSIDE RECORDS SUMMARY | 2023-10-29 18:29 | XMS_ITS | Encounter Summary ---
[facility] Organization [facility] [place] [address] Care Team Providers Care Bridge Welder Name Role Phone Basilio Bates MD Primary Care Provider Encounter Details Date Type Department Care Team (Late st Contact Info) Description 08/09/2020 Notes Only Audiology at [address] [phone] Amparo Ma AUD [facility] [place] [address] Social History Tobacco Use Types Packs/Day Years [...] Progress Notes * Amparo Ma AUD - 08/09/2020 12:41 PM EDT CENSUS TAKER TO COMPLETE SECTIONS I & II I. DEVICE RECOMMENDATION Note: Fill in relevant cells! If custom JOHNSON order, provider should complete family helper order form and leave boxed ear impression and form with HIS. Earmold orders can be sent out as usual. AMPLIFICATION EQUIPMENT LIST: HEARING AID RIGHT LEFT Make/Model/Style Hasmukh CROS AI 1999 R Hasmukh Tremaine AI 1999 LORE R Casing Color Silver Silver Serial Number [id number] - [facility] 10/12/2020 Refund Requested 12/07/20 [id number] - [facility] 10/12/2020 Refund Requested 12/07/20 Battery Size Rechargeable Rechargeable Invoice number/date [id number] 08/26/2020 [id number] 08/26/2020 Other Comments PROGRAM/SETTINGS Fitting Algorithm Verification Method SII (w/65 dBSLP) unaided/aided Programs Other Comments >active features: >disabled features: JOHNSON WARRANTY Original Fit Date Current Status 11/26/2023 11/26/2023 EARMOLD (if BTE JOHNSON) Lab Earmold / Slim tube / LORE / Dome specifics Length 2 CROS tubing/ 8 medium open dome Length 2 50 gain java android developer/ 8 mm open dome Impression Date Invoice number/date Other Comments ACCESSORIES Make/Model (color) Advertising Sales Assistant Serial Number [id number] - [facility] 10/12/2020 Warranty date 11/25/2021 Invoice number/date [id number] 08/26/2020 Settings Other Comments H.A.T. EQUIP - PERSONAL TRANSMITTER MEDICARE INSURANCE SPECIALIST #1 MEDICARE INSURANCE SPECIALIST #2 Make / Model (color) Serial number Jamie / Audio shoe Settings Verification date Other Comments WARRANTY Original Fit Date Current Status Invoice number/date CENSUS TAKER TO COMPLETE SECTION II II. PATIENT-SPECIFIC NOTES [...] in associated fee CODE FEE DESCRIPTION V5011 $300 FITTING/ORIENTATION OF [place] JOH[place]ON(S) V5241 DISPENSING FEE, MONAURAL V5160 DISPENSING FEE, BINAURAL V5240 $300 DISPENSING FEE, CROS SYSTEM (JOHNSON+CROS) V5200 DISPENSING FEE, CROS UNIT ONLY [id number] BAHA PROCESSOR, MONAURAL W/SOFTBAND (non-surgical) [id number] BAHA PROCESSOR, BINAURAL W/SOFTBAND (non-surgical) V5040 HEARING AID, MONAURAL, BODY WORN, BONE CONDUCTION V5181 CROS BTE (unit only) V5171 CROS ITE (unit only) V5172 CROS ITC (unit only) V5212 HEARING AID, Bi/CROS; ITE/ITC V5213 HEARING AID, Bi/CROS; ITE/BTE V5214 HEARING AID, Bi/CROS; ITC/ITC V5215 HEARING AID, Bi/CROS; ITC/BTE V5221 $2900 HEARING AID, Bi/CROS; BTE/BTE V5254 HEARING AID, DIGITAL, MONAURAL, CIC V5255 HEARING AID, DIGITAL, MONAURAL, ITC V5256 HEARING AID, DIGITAL, MONAURAL, ITE V5257 HEARING AID, DIGITAL, MONAURAL, BTE V5258 HEARING AID, DIGITAL, BINAURAL, CIC V5259 HEARING AID, DIGITAL,BINAURAL, ITC V5260 HEARING AID,DIGITAL, BINAURAL, ITE V5261 HEARING AID,DIGITAL,BINAURAL, BTE V5298 HEARING AID, NOC V5281 ALD, personal fm/dm system, monaural, (1 java android developer, transmitter, microphone), any type V5282 ALD, personal fm/dm system, binaural, (2 receivers, transmitter, microphone), any type V5288 ALD, personal fm/dm transmitter assistive listening device V5290 ALD, transmitter microphone, any type V5283 ALD, personal fm/dm neck loop induction java android developer V5284 ALD, personal fm/dm, ear level java android developer V5285 ALD, personal fm/dm, direct audio input java android developer V5286 ALD, personal blue tooth fm/dm java android developer V5287 ALD, personal fm/dm java android developer, not otherwise specified V5289 ALD, personal fm/dm adapter/boot coupling device for java android developer, any type V5270 ALD, TV Amplifier, any [...] / notes received IV. PRIOR AUTHORIZATION Self-pay HEARING AID PAYMENT RECEIVED: Payment received via: Incoming Call Paid with: AmEx [phone] $3500 [facility] Insurance coverage verified/date Hearing aid benefits are not covered by either PT's Medicare or [employer] [place] plans. Total Prepayment due $3,500.00 PA submitted/date Reply date / notes received V. SCHEDULING Fitting date 09/09/20 . ORDERING Ordered on 08/26/2020 Back-ordered? Equipment in? - JOHNSON 08/30/2020 Equipment in? - ALD/HAT Ear mold in? documented in this encounter Plan of Treatment Upcoming Encounters Date Type Department Care Team (Late st Contact Info) Description 08/05/2024 4:30 PM EDT Office Visit Dermatology at [facility] [address] [place] [address] [facility] [address] [place] [address] documented as of this encounter Visit Diagnoses Not on filedocumented in this encounter Care Teams Bridge Welder Relationship Specialty Start Date End Date Basilio Bates MD [address] [place] [phone] PCP - General General Internal Medicine 09/19/19 documented as of this encounter
--- OUTSIDE RECORDS SUMMARY | 2023-10-29 18:29 | XMS_ITS | Encounter Summary ---
Author Organization [facility] Address [facility] [place] [address] Care Team Providers Care Practicing Urologist Name Role Phone Basilio Bates MD Primary Care Provider [phone] Encounter Details Date Type Department Care Team (Latest Contact Info) Description 08/28/2022 Travel Social History Tobacco Use Types Packs/Day [...] 4:30 PM EDT Office Visit Dermatology at [facility] [address] [place] [address] Rich Ivory MD [facility] [address] [place] [address] documented as of this encounter Visit Diagnoses Not on filedocumented in this encounter Care Teams Practicing Urologist Relationship Specialty Start Date End Date Basilio Bates MD [address] [place] [address] PCP - General General Internal Medicine 09/19/19 documented as of this encounter
--- OUTSIDE RECORDS SUMMARY | 2023-10-29 18:29 | XMS_ITS | Encounter Summary ---
Author Organization [facility] [place] [address] Care Team Providers Care Color Control Supervisor Name Role Phone Uvaldo Aranda DO Primary Care Provider [phone] Encounter Details Date Type Department Care Team (Late st Contact Info) Description 07/02/2019 Telephone [place] [phone] Beny Smith MD [facility] [place] [address] Social History Tobacco Use Types Packs/Day Years [...] encounter Miscellaneous Notes * Telephone Encounter - Kathleen Manrique, COT - 07/02/2019 3:10 PM EDT pts called stating she and her are pts of Dr. Smith in his current practice and they would like to be put on a list of pts to see Dr. Smith when he is here at . Email sent to EN/JF asking to place on list documented in this encounter Plan of Treatment Upcoming Encounters Date Type Department Care Team (Late st Contact Info) Description 08/05/2024 4:30 PM EDT Office Visit Dermatology at [facility] [address] [place] [address] Rich Ivory MD [facility] [place] [address] documented as of this encounter Visit Diagnoses Not on filedocumented in this encounter Care Teams Color Control Supervisor Relationship Specialty Start Date End Date Uvaldo Aranda DO [address] [place] [address] JAELYN Bacon [address] PCP - General General Internal Medicine 08/22/18 6/2 08/12 documented as of this encounter
--- OUTSIDE RECORDS SUMMARY | 2023-10-29 18:29 | XMS_ITS | Encounter Summary ---
[place] [address] Care Team Providers Care Reed Maker Name Role Phone Basilio Bates MD Primary Care Provider [phone] Reason for Visit * Reason Comments Glaucoma Suspect Encounter Details Date Type Department Care Team (Late st Contact Info) Description 01/04/2021 10:30 AM EDT Office Visit [place] [address] Beny Smith MD [facility] [place] [address] Glaucoma suspect of both eyes; Branch retinal artery occlusion of right eye Social History Tobacco Use Types Packs/Day Years [...] of this encounter Progress Notes * Beny Simth MD - 01/04/2021 10:30 AM EDT Glaucoma suspect OU: Increased C/D OD>OS with definite nerve thinning OD but history of BRAO. IOP at target OU without treatment. HVF stable OU. OCT consistent with optic nerve exam OD, borderlineinferior rim OS somewhat surprising, lon given exam. Cataract OU: Early symptoms OU. Plan: Continue to follow, one year dilation and glaucoma OCT OU, defer HVF until next year unless large OCT changes. documented in this encounter Plan of Treatment Upcoming Encounters Date Type Department Care Team (Late st Contact Info) Description 08/05/2024 4:30 PM EDT Office Visit Dermatology at [facility] [address] [address] Rich Ivory MD [facility] [address] [address] documented as of this encounter Procedures Procedure Name Priority Date/Time Associated Diagnosis Comments OCT OPTIC NERVE - OU - BOTH EYES Routine 01/04/2021 12:12 PM EDT Glaucoma suspect of both eyes AUTOMATED VISUAL FIELD - EXTENDED - OU- BOTH EYES Routine 01/04/2021 12:11 PM EDT Glaucoma suspect of both eyes documented in this encounter Results * Oct Optic Nerve - OU - Both Eyes (01/04/2021 12:12 PM EDT) Anatomical Region Laterality Modality Other Narrative 01/04/2021 12:12 PM EDT Right Eye Quality was good. Left Eye Quality was good. Notes G= 76/83 Quadrants: OD- S, N, T wnl; I abnormal OS- S, N, T wnl; I borderline Interpretation: ??Abnormal OD/ Normal OS Beny Smith MD OPHTHALMOLOGY SERVIC ES ORDERABLES * Automated Visual Field - Extended - OU - Both Eyes (01/04/2021 12:11 PM EDT) Anatomical Region Laterality Modality Other Narrative 01/04/2021 12:11 PM EDT Right Eye Threshold was 24-2. Strategy was KEELY. Left Eye Threshold was 24-2. Strategy was KEELY. 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
--- OUTSIDE RECORDS SUMMARY | 2023-10-29 18:29 | XMS_ITS | Encounter Summary ---
Author Organization [facility] [place] [address] Care Team Providers Care Skidway Worker Name Role Phone Basilio Bates MD Primary Care Provider Encounter Details Date Type Department Care Team (Late st Contact Info) Description 12/09/2020 Telephone Audiology at [address] [address] Leigha Woods Social History Tobacco Use Types Packs/Day Years [...] encounter Miscellaneous Notes * Telephone Encounter - Leigha Woods - 12/09/2020 1:36 PM EDTSummary: HAF Images from the original note were not included. HAF needs to be rescheduled Received: 3 days ago I spoke with Gary; he is going to contact us in to schedule HAF in July 2021 Carlyn doran Pam D Nj Leigha, Mr. Duff equipment is on backorder. It is estimated to be in stock by 12/16. Can you please reschedule his fitting for sometime after 12/22. Please let me know when the new appointment is scheduled for. Carlyn ?? documented in this encounter Plan of Treatment Upcoming Encounters Date Type Department Care Team (Late st Contact Info) Description 08/05/2024 4:30 PM EDT Office Visit Dermatology at [address] [address] Rich Ivory MD [facility] DR [address] [address] documented as of this encounter Visit Diagnoses Not on filedocumented in this encounter Care Teams Skidway Worker Relationship Specialty Start Date End Date Basilio Bates MD [address] [place] [id number] PCP - General General Internal Medicine 09/19/19 documented as of this encounter
--- OUTSIDE RECORDS SUMMARY | 2023-10-29 18:29 | XMS_ITS | Encounter Summary ---
[place] [address] Care Team Providers Care Prop Attendant Name Role Phone Basilio Bates MD Primary Care Provider Encounter Details Date Type Department Care Team (Late st Contact Info) Description 08/09/2020 10:15 AM EDT Office Visit Audiology at [address] [address] Katalina Hodgson, [place] [facility] DR [place] [address] Asymmetric SNHL (sensorineural hearing loss) Social History [...] Progress Notes * Katalina Hodgson, [place] - 08/09/2020 10:15 AM EDT AUDIOLOGIC EVALUATION Basilio Duff was seen on 08/09/2020 for an audiologic evaluation in conjunction with Dr Ma foramplification management. Please refer to the scanned audiogram listed under Procedures for findings, impressions and recommendations. Lili Cartagena [place] [employer] [place] [address] documented in this encounter Plan of Treatment Upcoming Encounters Date Type Department Care Team (Late st Contact Info) Description 08/05/2024 4:30 PM EDT Office Visit Dermatology at [facility] [address] [place] [address] Rich Ivory MD [facility] DR ELVI [place] [address] documented as of this encounter Procedures Procedure Name Priority Date/Time Associated Diagnosis Comments COMPREHENSIVE HEARING TEST Routine 08/09/2020 10:12 AM EDT documented in this encounter Results * Comprehensive hearing test (08/09/2020 10:12 AM EDT) 08/09/2020 10:1 2 AM EDT Narrative AUDBASE COMP - 08/09/2020 10:12 AM EDT Follow up as scheduled with Dr Ma Procedure Note Unknown - 08/09/2020 Follow up as scheduled with Dr Ma Unknown AUDIOLOGY SERVICES O RDERABLES AUDBASE COMP documented in this encounter Visit Diagnoses Diagnosis Asymmetric SNHL (sensorineural hearing loss) Sensorineural hearing loss, asymmetrical documented in this encounter Care Teams Prop Attendant Relationship Specialty Start Date End Date Basilio Bates MD [address] [place] [address] PCP - General General Internal Medicine 09/19/19 documented as of this encounter
--- OUTSIDE RECORDS SUMMARY | 2023-10-29 18:29 | XMS_ITS | Encounter Summary ---
[place] [address] Care Team Providers Care Guest Relations Coordinator Name Role Phone Basilio Bates MD Primary Care Provider [phone] Reason for Visit * Reason Comments Other Wearing HAs AU. r ubber tip came off. Encounter Details Date Type Department Care Team (Late st Contact Info) Description 08/04/2020 2:00 PM EDT Office [place] [address] Kyle Beasley PA [facility] [place] [address] Foreign body of left ear, initial encounter Social History Tobacco Use Types Packs/Day [...] Sign Reading Time Taken Comments Blood Pressure - - Pulse - - Temperature - - Respiratory Rate - - Oxygen Saturation - - Inhaled Oxygen Concentration - - Weight 86.6 kg (191 lb) 08/04/2020 1:55 PM EDT Height 177.8 cm (5' 10) 08/04/2020 1:55 PM EDT Body Mass Index 27.41 08/04/2020 1:55 PM EDT documented in this encounter Progress Notes * Kyle Beasley PA - 08/04/2020 2:00 PM EDT Patient name: ENCOUNTER DATE:08/09/20 Reason for Visit: Foreign body removal Patient with history of Right Acoustic Neuroma, last seen in clinic for evaluation in 2015. Right Acoustic Neuroma was treated with radiation in 1998 at [facility] and then followed with serial evaluations and MRIs without evidence of re-growth. Was recommended to RTC in 5 years but this has notbeen scheduled at this time. MRI completed last year showed slight decrease in size. Currently wears BiCROS JOHNSON system with good results. However, today he was referred to clinic for evaluation due to JOHNSON dome being stuck in Left ear. Report he noticed it was stuck yesterday. Denies pain, drainage or vertigo. Procedure: The foreign body was noted to be in left external auditory canal stuck between the tympanic membrane and the medial-most aspect of the anterior canal wall. Utilizing binocular microscopy, and using small blunt tip curettes, forceps and suctions as needed, the foreign body was removed. After removal the canal appeared clean, clear without evidence of infection After, removal the TM was noted to be intact and healthy appearing. Assessment: Successful foreign body removal. Recommendations/Plan: he tolerated the foreign body removal well and without complication. F/U prn. Ear cleaning methods were discussed with the patient. JACKELIN Krishna, MS, PA-C, ATC Otolaryngology [place] [id number] phone: [phone] documented in this encounter Plan of Treatment Upcoming Encounters Date Type Department Care Team (Late st Contact Info) Description 08/05/2024 4:30 PM EDT Office Visit Dermatology at [facility] [address] [place] [address] Rich Ivory MD [facility] [place] [address] documented as of this encounter Visit Diagnoses Diagnosis Foreign body of left ear, initial encounter documented in this encounter Care Teams Guest Relations Coordinator Relationship Specialty Start Date End Date Basilio Bates MD [address] [place] [id number] PCP - General General Internal Medicine 09/19/19 documented as of this encounter
--- OUTSIDE RECORDS SUMMARY | 2023-10-29 18:29 | XMS_ITS | Encounter Summary ---
[place] [address] Care Team Providers Care Guest Relations Associate Name Role Phone Basilio Bates MD Primary Care Provider [phone] Reason for Visit * Reason Comments Glaucoma Suspect Encounter Details Date Type Department Care Team (Late st Contact Info) Description 08/16/2022 2:15 PM EDT Office [place] [address] Beny Smith MD [facility] [place] [address] Glaucoma suspect of both eyes; Branch retinal artery occlusion of right eye; Combined forms of age-related cataract of both eyes Social History Tobacco [...] as of this encounter Progress Notes * Bryan Holden MD - 08/16/2022 2:15 PM EDT Assessment/Plan: Basilio Duff is a 76 y.o. male with the following ophthalmic issues: Encounter Diagnoses Name Primary? Glaucoma suspect of both eyes ??? Branch retinal artery occlusion of right eye ??? Combined forms of age-related cataract of both eyes Glaucoma suspect OU: Increased C/D OD>OS with definite nerve thinning OD but history of BRAO. IOP at target OU without treatment. HVF stable OU. OCT stable today, consistent with optic nerve exam OD, borderline inferior rim OS. Cataract OU: Minimal symptoms at this point OU. Observe Plan: Continue to follow. RTC in 1 year BAT, dilation and glaucoma OCT OU Bryan Holden MD PGY-3 I saw the patient with the following level of supervision from the attending: Direct from Dr. Smith during this encounter. Attending note: I examined and discussed this patient with Dr. Holden and agree with his assessment and plan. documented in this encounter Plan of Treatment Upcoming Encounters Date Type Department Care Team (Late st Contact Info) Description 08/05/2024 4:30 PM EDT Office Visit Dermatology at [facility] [address] [place] [address] Rich Ivory MD [facility] DR [address] [address] Pending Results Name Type Priority Associated Diagnoses Date /Time OCT Retina - OU - Both Eyes Ophthalmology Routine Glaucoma suspect of both eyes Branch retinal artery occlusion of right eye Combined forms of age-related cataract of both eyes 08/16/2022 3:09 PM EDT Oct Optic Nerve - OU - Both Eyes Ophthalmology Routine Glaucoma suspect of both eyes Branch retinal artery occlusion of right eye 08/16/2022 3:10 PM EDT documented as of this encounter Procedures Procedure Name Priority Date/Time Associated Diagnosis Comments OCT OPTIC NERVE - OU - BOTH EYES Routine 08/16/2022 3:10 PM EDT Glaucoma suspect of both eyes Branch retinal artery occlusion of right eye OCT RETINA - OU - BOTH EYES Routine 08/16/2022 3:09 PM EDT Glaucoma suspect of both eyes Branch retinal artery occlusion of right eye Combined forms of age-related cataract of both eyes documented in this encounter Visit Diagnoses Diagnosis Glaucoma suspect of both eyes Preglaucoma, unspecified Branch retinal artery occlusion of right eye Arterial branch occlusion of retina Combined forms of age-related cataract of both eyes Other and combined forms of senile cataract documented in this encounter Care Teams Guest Relations Associate Relationship Specialty Start Date End Date Basilio Bates MD [address] [place] [address] PCP - General General Internal Medicine 09/19/19 documented as of this encounter
--- OUTSIDE RECORDS SUMMARY | 2023-10-29 18:29 | XMS_ITS | Encounter Summary ---
[facility] Address [facility] [place] [address] Care Team Providers Care Screen Making Supervisor Name Role Phone Basilio Bates MD Primary Care Provider [phone] Reason for Visit * Reason Comments Skin Check Encounter Details Date Type Department Care Team (Late st Contact Info) Description 11/07/2021 2:30 PM EDT Office Visit Dermatology at [facility] [place] [address] [place] [address] Rich Crespo MD [facility] [place] [address] Actinic keratoses; Inverse psoriasis; Seborrheic keratoses Social History Tobacco Use Types [...] Progress Notes * Rich Crespo MD - 11/07/2021 2:30 PM EDT Images from the original note [...] Retired Hobbies: Other: History of Present Illness: Basilio Duff is a 75 y.o. Patient returns to clinic today for a full skin exam. Patient reports present for a full skin exam without any concerns. Last visit at Dermatology: 09/21/2020 Last visit with this provider: 09/21/2020 Medications: Reviewed in eD-H Allergies: Reviewed in eD-H Skin Examination: Full skin examination: Patient asked to undress to their comfort level. Verbalized that the provider's preference is that patient remove all clothing and that the provider will not examine areas patient elects to keep covered. Examination of the scalp, hair, head, face, ears, neck, chest, axillae, abdomen, back, buttocks, and upper and lower extremities was normal with the exception of the findings below. Genitalia not examined. Assessment/Plan #. Actinic Keratosis - Scaly irregular pink papule located on right forehead X1 - Discussed etiology and treatment options with patient - Joint decision to pursue LN2 x 2 to lesion. Advised to return if lesion(s) do not resolve. Procedure Note: Procedure: Destruction of lesions with cryotherapy. Number: 1 Location: as above Discussed procedure and expectations including risks (including risk of hypopigmentation) and benefits. Verbal consent obtained. Frozen with LN2, 15-30 second thaw time, TWICE. There were no complications; the patient tolerated the procedure well. Post-procedure expectations and wound care were reviewed. #. Mole vs Nevi - 3-4 mm flesh colored papule on the nasal tip right of midline (figure 1) - no Hx of bleeding; stable - reassurance of benign nature today - counseled if lesion becomes bothersome or changes in any way he will call to be seen sooner for further discussion #. 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 Seborrheic Keratoses - Scattered brown and flesh colored waxy stuck on plaques located on the trunk and extremities - Reassured of benign nature Figure 1. Benign appearing growth, present 15 years, observing, biopsy if changes, next visit Photo taken and given to patient. Other: ??? Reviewed and/or interpreted test results RTC: 1 year for FSE. Will monitor lesion on nose and call PRN if it bleeds. []Note routed to medical secretary receptionist [x]Recall placed in scheduling system []Appointment scheduled at checkout Scribe attestation: Lina Arriola [facility] has performed the documentation for this encounter inthe presence of and acting as a scribe for RICH CRESPO MD. I performed the above scribed service and agree with the accuracy of the documentation in this encounter. Reviewed and signed by: RICH CRESPO MD Dermatology [facility] documented in this encounter Plan of Treatment Upcoming Encounters Date Type Department Care Team (Late st Contact Info) Description 08/05/2024 4:30 PM EDT Office Visit Dermatology at [facility] [place] [address] [place] [address] Rich Crespo MD [facility] [place] [address] documented as of this encounter Visit Diagnoses Diagnosis Actinic keratoses Actinic keratosis Inverse psoriasis Other psoriasis Seborrheic keratoses documented in this encounter Care Teams Screen Making Supervisor Relationship Specialty Start Date End Date Basilio Bates MD [address] [place] [address] PCP - General General Internal Medicine 6/26/20 documented as of this encounter
--- OUTSIDE RECORDS SUMMARY | 2023-10-29 18:29 | XMS_ITS | Encounter Summary ---
Author Organization [facility] [address] Care Team Providers Care Welding Teacher Name Role Phone Basilio Bates MD Primary Care Provider Reason for Visit * Auth/Cert (Routine) Specialty Diagnoses / Procedures Referred By Contac t Referred To Contact Diagnoses Alternating constipation and diarrhea 5 year diarrhea & constipation Procedures PRO COLONOSCOPY, DIAGNOSTIC PRO COLONOSCOPY, BIOPSY PRO COLONOSCOPY, REMV LESN, SNARE PRO ANESTH, LWR INTESTINE, NOS COLONOSCOPY,SCREENING (WRVU 3.26) Nicho Kennedy MD [facility] [place] [address] [facility] Referral ID Status Reason Start Date Expiration Date Visits Re quested Visits Authorized [id number] 1 1 Encounter Details Date Type Department Care Team (Late st Contact Info) Description 01/11/2023 8:00 AM EDT - 01/11/2023 9:00 AM EDT Surgery [place] [address] Nicho Kennedy MD [facility] [place] [address] COLONOSCOPY, POLYPECTOMY, REMOVAL LESION BY SNARE (WRVU 4.68) Social History Tobacco Use Types Packs/Day Years [...] Sign Reading Time Taken Comments Blood Pressure 126/79 01/11/2023 9:00 AM EDT Pulse 76 01/11/2023 7:33 AM EDT Temperature 36.4 ??C (97.5 ??F) 01/11/2023 7:33 AM ED T Respiratory Rate 18 01/11/2023 9:00 AM EDT Oxygen Saturation 99% 01/11/2023 9:00 AM EDT Inhaled Oxygen Concentration - - [...] occurs, please contact your Doctor. Please call [phone] before 8pm Mon-Fri with problems, questions or concerns. If you call after 8pm or on weekends, call the Hospital at [phone] and ask to speak to the Technical Business Systems Analyst nca certified concierge and the dry pan operator will contact that person for you. [...] any problems. Where can you learn more? [facility] View your After Visit Summary and more online at [email or web address] If you would like to provide feedback about your hospital experience, please call the Office of Patient and Family Relations at . If you have received this After Visit Summary in error, please immediately return it in person to the department, or notify the [facility] Privacy Office by calling toll free at between the hours of 8AM and 5PM to arrange for our retrieval of the documents at no cost to you. Content Version: 12.2 ?? [phone] [employer]. Care instructions adapted under license by [facility]. If you have questions about a medical condition or this instruction, always ask your healthcare professional. [employer] disclaims any warranty or liability for your [...] 4:30 PM EDT Office Visit Dermatology at [address] [place] [address] Rich Ivory MD [facility] DR ELVI KHAN-[place] [address] documented as of this encounter Procedures Procedure Name Priority Date/Time Associated Diagnosis Comments SURGICAL PATHOLOGY REPORT Routine 01/11/2023 8:37 AM EDT SPECIMEN TO PATHOLOGY Routine 01/11/2023 8:37 AM EDT Colonoscopy, Flex, W/Control, Bleeding ([id number]) 01/11/2023 8:10 AM EDT 5 year diarrhea & constipation Colonoscopy, Remv Lesn, Snare ([id number]) 01/11/2023 8:10 AM EDT 5 year diarrhea & constipation COLONOSCOPY Routine 01/11/2023 7:59 AM EDT documented in this encounter Results * Surgical Pathology Report (01/11/2023 8:37 AM EDT) Final Diagnosis [id number] ? Location: 4T; EA08; A The signing pathologist has (i) examined the relevant preparation(s) for the specimen(s) and (ii) rendered or confirmed the diagnosis(es). . ?Surgical Pathology DIAGNOSIS A - Transverse colon polyp, resection: Tubular adenoma. CR-PX Electronically signed by: ?Simon DAVEY, Radha Verified: ??01/19/2023 14:02 ??Pathologist Performed at: ??-[facility] Dept. of Pathology, [place] [address] Underground Miner: Allan Saba MD, FCAP, ??CLIA Certificate: [id number] SPECIMEN(S) SUBMITTED A - Transverse colon polyp, resection (1) CLINICAL INFORMATION 77-year-old male; history of polyps, surveillance colonoscopy SPECIMEN PROCESSING A - Labeled/Fixative : Transverse colon polyp, formalin. Quantity/Size: Single, 0.9 x 0.8 x 0.1 cm. Tissue Description: Irregular portion of tyson-pink mucosal tissue. Sections/Process ing: Inked, trisected and entirely submitted in 1 cassette labeled A1. ??pps 01/19/2023 2:02 PM EDT [facility] GI Biopsy 01/11/2023 8:37 AM EDT 01/11/2023 8:37 AM EDT Nicho Kennedy MD PATHOLOGY/CYTOLOGY ORDERABLES Performing Organization Address [facility] Co de Phone Number [facility] [place], [place] [id number] [place] [address] [place] [address] * Specimen to Pathology (01/11/2023 8:37 AM EDT) AP Specimen 01/11/2023 8:37 AM EDT 01/11/2023 8:37 AM EDT Narrative [facility] - 01/11/2023 8:37 AM EDT Specimen requisition ordered. ??Separate Pathology report to follow Nicho Kennedy MD PATHOLOGY/CYTOLOGY ORDERABLES Performing Organization Address [facility] Co de Phone Number [facility] [place] [address] * COLONOSCOPY (01/11/2023 7:59 AM EDT) COLONOSCOPY [facility] Endoscopy Procedure Date: 01/11/2023 7:59 AM ? Patient Name: Basilio Duff ? Date of : 1945 ? Age: 77 ? Order #: [id number] ? Instrument Name: [id number] ? Procedure: ? Colonoscopy Indications: ? High risk colon cancer ? surveillance: Personal history of ? small colonic polyps, New c Providers: ? Nicho Kennedy, Amparo Olivares, ? Jose De Jesus Bailey RN, Gagan Garcia MD: ?Basilio aBtes MD Medicines: ? Monitored Anesthesia Care Complications: [...] the ? physician, the nurse, the ? commissary steward and the prosthetic lab technician. The ? procedure was verified in [...] care under ? the supervision of a CRANBERRY SORTER was ? determined to be medically ? [...] preparation was evaluated ? using the BBPS (Harvey Bowel ? Preparation Scale) with scores of: [...] were successfully ? placed (MR conditional). Clip yoghurt maker: [employer]. There was no bleeding at [...] (MR ? conditional) were placed. Clip ? yoghurt maker: [employer]. ? - Diverticulosis in the sigmoid ? [...] CRNA) documented in this encounter Care Teams Welding Teacher Relationship Specialty Start Date End Date Basilio Bates MD [address] [place] [id number] PCP - General General Internal Medicine 09/19/19 documented as of this encounter
--- OUTSIDE RECORDS SUMMARY | 2023-10-29 18:29 | XMS_ITS | Encounter Summary ---
Author Organization [facility] Address [facility] [place] [address] Care Team Providers Care Rolled Gold Plater Name Role Phone Basilio Bates MD Primary Care Provider [phone] Encounter Details Date Type Department Care Team (Latest Contact Info) Description 08/29/2022 Travel Social History Tobacco Use Types Packs/Day [...] EDT Office Visit Dermatology at [facility] [address] [place] [address] Rich Ivory MD [facility] DR EL[place] [address] documented as of this encounter Visit Diagnoses Not on filedocumented in this encounter Care Teams Rolled Gold Plater Relationship Specialty Start Date End Date Basilio Bates MD [address] [place] [address] PCP - General General Internal Medicine 09/19/19 documented as of this encounter
--- OUTSIDE RECORDS SUMMARY | 2023-10-29 18:29 | XMS_ITS | Encounter Summary ---
Author Organization [facility] [place] [address] Care Team Providers Care Credit Manager Name Role Phone Basilio Bates MD Primary Care Provider Reason for Referral * Consultation (Urgent) - Closed Specialty Diagnoses / Procedures Referred By Contcharlotte camp Referred To Contact Gastroenterology Diagnoses Abdominal pain, unspecified abdominal location Change in bowel habits abd pain Basilio Bates MD [address] [place] [address] Francisco Garland MD [facility] [place] [address] Referral ID Status Reason Start Date Expiration Date V isits Requested Visits Authorized [id number] Closed Consult, Test & Treat PCP Updated and/or Approved 12/19/2022 12/26/2022 6 6 Encounter Details Date Type Department Care Team (Latest Contact Info) Description 12/21/2022 Transcribe Orders eDH Incoming Referrals [phone] Basilio Bates MD [address] [place] [address] [phone] Abdominal pain, unspecified abdominal location; Change in bowel habits Social History Tobacco Use Types Packs/Day Years [...] 4:30 PM EDT Office Visit Dermatology at [facility] [address] [place] [address] Rich Ivory MD [facility] DR ELVI [place] [address] Scheduled Referrals Name Type Priority Associated Diagnoses Order Schedule Referral to Gastroenterology Outpatient Referral Urgent Abdominal pain, unspecified abdominal location Change in bowel habits Ordered: 12/21/2022 documented as of this encounter Visit Diagnoses Diagnosis Abdominal pain, unspecified abdominal location Change in bowel habits Other symptoms involving digestive system documented in this encounter Care Teams Credit Manager Relationship Specialty Start Date End Date Basilio Bates MD [address] [address] PCP - General General Internal Medicine 09/19/19 documented as of this encounter
--- OUTSIDE RECORDS SUMMARY | 2023-10-29 18:29 | XMS_ITS | Encounter Summary ---
[place] [address] Care Team Providers Care Supervisor Sheet Manufacturing Name Role Phone Basiilo Bates MD Primary Care Provider Reason for Referral * Diagnostic Test (Routine) - Closed Specialty Diagnoses / Procedures Referred By Connie camp Referred To Contact Radiology Diagnoses Acoustic neuroma Meningioma Procedures MRI Brain wwo Contrast (Generic) [facility] [address] [place] [address] [facility] [address] Referral ID Status Reason Start Date Expiration Date V isits Requested Visits Authorized [id number] Closed Specialty Service Requested 11/19/2019 05/16/2020 1 1 Encounter Details Date Type Department Care Team (Late st Contact Info) Description 09/23/2019 Orders [place] [address] Valerie Disla RN Acoustic neuroma; Meningioma Social History Tobacco Use Types Packs/Day Years [...] 4:30 PM EDT Office Visit Dermatology at [facility] [address] [place] [address] Rich Ivory MD [facility] [place] [address] documented as of this encounter Results * MRI Brain wwo [...] MRI BRAIN WWO CONTRAST (GENERIC) CLINICAL HISTORY: Brain/LEAN SPECIALIST neoplasm, surveillance R acoustic neuroma, parafalcine meningioma, [...] MRI BRAIN WWO CONTRAST (GENERIC) CLINICAL HISTORY: Brain/LEAN SPECIALIST neoplasm, surveillance R acoustic neuroma, parafalcine meningioma, [...] this report, please contact the number below. Alexandro Foss MD IMG MRI ORDERABLES documented in this encounter Visit Diagnoses Diagnosis Acoustic neuroma Benign neoplasm of cranial nerves Meningioma Benign neoplasm of cerebral meninges Acoustic neuroma Benign neoplasm of cranial nerves Meningioma Benign neoplasm of cerebral meninges documented in this encounter Care Teams Supervisor Sheet Manufacturing Relationship Specialty Start Date End Date Basilio Bates MD [address] [place] [address] PCP - General General Internal Medicine 09/19/19 documented as of this encounter
--- OUTSIDE RECORDS SUMMARY | 2023-10-29 18:29 | XMS_ITS | Encounter Summary ---
Author Organization [facility] Address [facility] [place] [address] Care Team Providers Care Supervisor Conditioning Yard Name Role Phone Unknown Primary Care Provider Unavailabl e Reason for Visit * Reason Onset Date Comments Medication Refill 07/04/2018 Encounter Details Date Type Department Care Team (Late st Contact Info) Description 07/04/2018 Refill Dermatology at [facility] [address] [place] [address] Rich Ivory MD [facility] [address] [place] [address] Scalp psoriasis Social History Tobacco Use Types [...] Telephone Encounter - Barbara Hess LPN - 07/11/2018 8:04 AM EDT Refill request received for dermasmoote, patient was last seen in clinic on 04/03/17. Refill request pended to Dr. Ivory for approval. -Patient will return to clinic on 08/22/18 * Telephone Encounter - Barbara Hess LPN - 07/04/2018 4:27 PM EDT Spoke with patient today and let him know that I would speak with Dr. Ivory when he returned about a small refill before he returns to clinic. He is aware that Dr. Ivory is out of clinic until next Sunday. documented in this encounter Plan of Treatment Upcoming Encounters Date Type Department Care Team (Late st Contact Info) Description 08/05/2024 4:30 PM EDT Office Visit Dermatology at [facility] [address] [place] [address] Rich Ivory MD [facility] [address] EL[place] [address] documented as of this encounter Visit Diagnoses Diagnosis Scalp psoriasis Other psoriasis documented in this encounter Care Teams Supervisor Conditioning Yard Relationship Specialty Start Date End Date Unknown None PCP - General 12/24/17 08/21/18 documented as of this encounter
--- OUTSIDE RECORDS SUMMARY | 2023-10-29 18:29 | XMS_ITS | Encounter Summary ---
Author Organization Count Includes [facility] Address [facility] [place] [address] Care Team Providers Care Environmental Health Specialist Name Role Phone Basilio Bates MD Primary Care Provider [phone] Reason for Visit * Reason Comments Skin Check Encounter Details Date Type Department Care Team (Late st Contact Info) Description 09/19/2019 3:15 PM EDT Office Visit Dermatology at [facility] [address] [place] [address] Rich Ivory MD [facility] [place] [address] Actinic keratoses; Multiple benign nevi; Seborrheic keratoses Social History Tobacco Use Types [...] Progress Notes * Rich Ivory MD - 09/19/2019 3:15 PM EDT Basilio Duff 09/19/2019 [id number] Roney Ivory MD ([id number]) Chief Problem: 1. Pigmented Lesion and Skin Cancer Examination 2. History of actinic keratoses, scalp psoriasis, rosacea?? History: 73 y.o. male. Established patient to me. No significant changes in health or medications since last visit. Patient presents here today for a total body skin examination with history as listed above. No specific areas of concern today. Medications: reviewed All: reviewed Review of Systems: Feels well, no fatigue, no weight loss, no other skin concerns. No fever, cough or shortness of breath. Current Outpatient Medications on File Prior to Visit Medication Sig Dispense Refill ??? atorvastatin (LIPITOR) 20 mg Tablet TK 1 T PO QD 3 ??? fluocinolone (DERMA-SMOOTHE) 0.01 % Oil Apply [...] alert, well-appearing and in no noticeable distress. Patient asked to undress to their comfort level. Provider preference is to take everything off. If clothing is left on we will not look there. Patient chose to leave on underwear. A full body skin exam was performed. This includes examination of the skin of the face, ears, scalp, neck, chest, axillae, back, abdomen, left and right upper and lower extremities, buttocks, hands, and feet. The genitalia were not examined. Specific findings: 1. Actinic Keratosis x 3 located on the forehead 2. Benign appearing nevi located on the trunk and extremities 3. Seborrheic keratoses located on the trunk and extremities Assessment/Diagnosis: 1. Actinic keratoses, treated with cryotherapy today 2. Benign appearing nevi, patient reassured 3. Seborrheic keratoses, patient reassured Procedure: 1. LN2 x 2 to Actinic Keratosis x 3 Treatment/Plan: Discussion - Spent over half of this visit discussing pathophysiology and the diagnosis, and counselling this patient on treatment options, expectations and follow-up plan. - Specifically discussed: 1. Sun avoidance re-emphasized, sunscreen, hats, clothing as always. 2. Combined decision to treat actinic keratosis x [address] x 2 in office today. Follow up: 1 year for skin cancer exam, sooner if needed. Routed to workers compensation legal secretary for scheduling. I am documenting this encounter acting as the scribe for and in the presence of Dr. Ivory, JEREMY ESCALERA LPN and Jeni Devlin. I performed the above scribed service and agree with the accuracy of the documentation in this encounter, MD Roney Napoles M.D. Section of Dermatology documented in this encounter Plan of Treatment Upcoming Encounters Date Type Department Care Team (Late st Contact Info) Description 08/05/2024 4:30 PM EDT Office Visit Dermatology at [address] [address] Rich Ivory MD [facility] [place] [address] documented as of this encounter Visit Diagnoses Diagnosis Actinic keratoses Actinic keratosis Multiple benign nevi Benign neoplasm of skin, site unspecified Seborrheic keratoses Other seborrheic keratosis documented in this encounter Care Teams Environmental Health Specialist Relationship Specialty Start Date End Date Basilio Bates MD [address] [place] [address] PCP - General General Internal Medicine 09/19/19 documented as of this encounter
--- OUTSIDE RECORDS SUMMARY | 2023-10-29 18:29 | XMS_ITS | Encounter Summary ---
Author Organization [facility] [place] [address] Care Team Providers Care Front Desk Host Name Role Phone Basilio Bates MD Primary Care Provider [phone] Reason for Visit * Audiology Exam (Routine) - Denied Specialty Diagnoses / Procedures Referred By Connie camp Referred To Contact Audiology Diagnoses Return for hearing aid fitting with Juan R with any Procedures HEARING AID FITTING Basilio Bates MD [address] [place] [address] Amparo Ma AUD [facility] [place] [address] Referral ID Status Reason Start Date Expiration Date Visits Re quested Visits Authorized [id number] Denied 08/09/2021 08/09/2022 1 0 Encounter Details Date Type Department Care Team (Late st Contact Info) Description 08/09/2021 1:45 PM EDT Office Visit Audiology at [address] [address] Amparo Ma AUD [facility] [address] Asymmetric SNHL (sensorineural hearing loss) Social History [...] Progress Notes * Amparo Ma, AUD - 08/09/2021 1:45 PM EDT AUDIOLOGY Basilio Duff was fit today with a BICROS hearing aid system. The hearing instruments are used formanagement of asymmetric sensorineural hearing loss. Otoscopy showed clear ear canals bilaterally. Left aid programming was adjusted so that the aided responses approximated prescriptive targets for speech without exceeding MPO targets. Function of theright CROS transmitter was verified. Mr. Duff was subjectively satisfied with the sound quality ofthe hearing instruments, and loudness discomfort was denied. Mr. Duff was instructed on use, care and maintenance of the hearing instruments, including instruction on hearing aid insertion/removal, cleaning and batteries. Warranty coverage, and the 30-day trial period were discussed. A review of expectations and the hearing device adjustment process were also discussed. Mr. Duff was able to insert and manipulate the instruments with ease. The left hearing aid was connected to his phone, and he was able to hear streamed music clearly. No cell service totest a phone call. Mr. Duff will be seen in 2-4 weeks for a follow-up hearing aid check and orientation. Tiffany Leigh [place] [address] ; AMPLIFICATION EQUIPMENT LIST: HEARING AID RIGHT LEFT Make/Model/Style Phonak CROS P 13 Phonak Audeo P90 13 Casing Color Silver Silver Serial Number ??[id number] Battery Size 13 13 Invoice number/date ??[id number] 07/22/2021 ?[id number] 07/22/2021 Other Comments ? PROGRAM/SETTINGS ? Fitting Algorithm DSL-Adult DSL-Adult Verification Method ??REM REM SII (w/65 dBSLP) unaided/aided ? Programs ?? Autosense OS Other Comments >active features: >disabled features: >active features: >disabled features: JOHNSON WARRANTY ? Original Fit Date 08/09/2021 08/09/2021 Current Status 10/19/2024 10/19/2024 EARMOLD (if BTE JOHNSON) ? Lab ? Earmold / Slim tube / LORE / Dome specifics Length 1 deputy register of deeds/ CROS tube, medium open dome Length 1 M deputy register of deeds/ small vented dome Impression Date ? Invoice number/date ? Other Comments ? ACCESSORIES ? Make/Model (color) ? Serial Number ? Warranty date ? Invoice number/date ? Settings ? Other Comments ? documented in this encounter Plan of Treatment Upcoming Encounters Date Type Department Care Team (Late st Contact Info) Description 08/05/2024 4:30 PM EDT Office Visit Dermatology at [facility] [address] [place] [address] Rich Ivory MD [facility] DR EL[place] [address] documented as of this encounter Visit Diagnoses Diagnosis Asymmetric SNHL (sensorineural hearing loss) Sensorineural hearing loss, asymmetrical documented in this encounter Care Teams Front Desk Host Relationship Specialty Start Date End Date Basilio Bates MD [address] [place] [address] PCP - General General Internal Medicine 09/19/19 documented as of this encounter
--- OUTSIDE RECORDS SUMMARY | 2023-10-29 18:30 | XMS_ITS | Encounter Summary ---
[place] [address] Care Team Providers Care Audit Officer Name Role Phone Yarelis Shaikh MD Primary Care Provider [phone] Encounter Details Date Type Department Care Team (Late st Contact Info) Description 06/03/2013 2:30 PM EDT Office Visit Audiology at [address] [address] Amparo Ma, [place] [facility] [place] [address] Fitting and adjustment of hearing aid (Primary Dx) Discharge Disposition: Home Social History Tobacco Use Types Packs/Day Years Used Date Smoking Tobacco: Former Alcohol Use Standard Drinks/Week Comments No 0 (1 standard drink = 0.6 oz pur e alcohol) Sex and Gender Information Value Date Recorded Sex Assigned at Male 12/29/2020 8:49 AM EDT Gender Identity Male 11/14/2019 5:36 AM EDT Sexual Orientation Straight 12/29/2020 8: 49 AM EDT documented as of this encounter Progress Notes * Amparo Graf, HALEIGH - 06/03/2013 5:21 PM EDT AUDIOLOGY Basilio Duff was seen today for a hearing aid check following a hearing re- evaluation. Please refer to the audiogram and associated note for details on otologic symptoms and hearing test results. Mr. Duff reported that the BICROS system is helpful in most situations, but he finds difficulty understanding speech in very noisy environments. Also, the Phonak iCom is not holding a charge as long as it used to. The following actions were taken: ?? Both devices were cleaned and a listening check indicated that they were functioning appropriately. ?? Left hearing aid programming was adjusted (high frequency gain was increased) so that the aided responses approximated prescriptive targets for speech without exceeding MPO targets. Mr. Duff was subjectively satisfied with the sound quality of the aid, and loudness discomfort was denied. Function of the right transmitter was also verified and documented. ?? Mr. Duff was provided extra domes for the left at hearing aid. ?? Phonak is no longer fixing the iCom, and the option of the Com Copy Writer was discussed. Mr. Duff will contact the clinic if he wishes to order this. HEARING AID(S): HEARING AID RIGHT LEFT STYLE BICROS Transmitter RITE MAKE/MODEL Phonak Phonak Audeo S Smart V CASING COLOR Mocha Taupe Same SERIAL NUMBER [id number] BATTERY SIZE 312 312 BATTERY CLUB PROGRAM/SETTINGS FITTING ALGORITHM N/A DSL-Adult VERIFICATION METHOD N/A REM PROGRAMS Soundflow DISABLED FEATURES OTHER COMMENTS VC enabled HEARING AID WARRANTY ORIGINAL FIT DATE 10/20/10 10/20/10 CURRENT STATUS Under land acquisition manager repair and L&D coverage until 12/25/12 Under land acquisition manager repair and L&D coverage until 12/25/13 EARMOLD (if BTE JOHNSON) LAB Phonak EM (Style/material/vent/color) CROS-Tip IMPRESSION DATE 08/26/10 INVOICE # Invoice #: [id number] Serial #: [id number] TUBE/LORE (length/dome/industrial pharmacist size) Length 2 tube Length 2 standard industrial pharmacist/ medium closed phonakdome OTHER / COMMENTS Assistive Listening Devices/Wireless Accessories Device Phonak iCom Serial # [id number] Fit Date 11/17/10 Warranty Exp. 01/29/12 RECOMMENDATIONS Annual hearing evaluation and hearing aid check, sooner if concerns arise in the interim. Haleigh [place] [address] ; documented in this encounter Plan of Treatment Upcoming Encounters Date Type Department Care Team (Late st Contact Info) Description 08/05/2024 4:30 PM EDT Office Visit Dermatology at [facility] [address] [place] [address] Rich Ivory MD [facility] DR [place] [address] documented as of this encounter Visit Diagnoses Diagnosis Fitting and adjustment of hearing aid- Primary documented in this encounter Care Teams Audit Officer Relationship Specialty Start Date End Date Yarelis Shaikh MD [facility] [address] [place] [address] PCP - General 02/15/10 12/20/17 documented as of this encounter
--- OUTSIDE RECORDS SUMMARY | 2023-10-29 18:30 | XMS_ITS | Encounter Summary ---
Author Organization [facility] [place] [address] Care Team Providers Care Collection Analyst Name Role Phone Yarelis Shaikh MD Primary Care Provider Reason for Visit * Reason Comments JOHNSON Fitting Or Adjustment Encounter Details Date Type Department Care Team (Late st Contact Info) Description 10/20/2010 10:15 AM EDT Office Visit Audiology at [address] [address] Amparo Ma AUD [facility] [place] [address] Fitting and adjustment of hearing aid (Primary Dx) Discharge Disposition: Home Social History Tobacco Use Types Packs/Day Years Used Date Smoking Tobacco: Never Alcohol Use Standard Drinks/Week Comments No 0 (1 standard drink = 0.6 oz pur e alcohol) Sex and Gender Information Value Date Recorded Sex Assigned at Male 12/29/2020 8:49 AM EDT Gender Identity Male 11/14/2019 5:36 AM EDT Sexual Orientation Straight 12/29/2020 8: 49 AM EDT documented as of this encounter Progress Notes * Amparo Graf, HALEIGH - 11/02/2010 6:26 PM EDT AUDIOLOGY - Hearing Aid Fitting Basilio Duff was fit today with a Phonak BICROS hearing aid system. Verification of the left hearing aid fit was completed via [id number] (REM) using the DSL-Adult prescriptive fitting method. The aided responses nicely approximated targets for speech in the automatic program setting without exceeding maximum power output levels. Mr. Duff was subjectively satisfied with the sound quality of the aid, and loudness discomfort was denied. Mr. Duff was able to notice a significant difference in ease of listening when the BICROS transmitter was activated on the right side. Mr. Duff was instructed on use, care and maintenance of the hearing aid, including instruction on hearing aid insertion/removal, cleaning and batteries. Warranty coverage, and the 30-day trial period were discussed. A review of expectations and the hearing aid adjustment process were also discussed. Mr. Duff was able to insert and manipulate the instruments with relative ease and will be seen in 2-4 weeks for a follow-up hearing aid check and orientation. HEARING AID(S): HEARING AID RIGHT LEFT STYLE BICROS Transmitter RITE MAKE/MODEL Phonak Phonak Audeo S Smart V CASING COLOR Mocha Taupe Same SERIAL NUMBER [id number] BATTERY SIZE 312 312 BATTERY CLUB PROGRAM/SETTINGS FITTING ALGORITHM N/A DSL-Adult VERIFICATION METHOD N/A REM PROGRAMS Soundflow DISABLED FEATURES OTHER COMMENTS VC enabled HEARING AID WARRANTY ORIGINAL FIT DATE 10/20/10 10/20/10 CURRENT STATUS Under supervisor underwriting clerks repair and L&D coverage until 12/25/12 Under supervisor underwriting clerks repair and L&D coverage until 12/25/13 EARMOLD (if BTE JOHNSON) LAB Phonak EM (Style/material/vent/color) CROS-Tip IMPRESSION DATE 08/26/10 INVOICE # Invoice #: [id number] Serial #: [id number] TUBE/LORE (length/dome/applications manager size) Length 2 tube Length 2 standard applications manager/ medium open phonak pointed dome OTHER / COMMENTS Tiffany [place] [address] (fax) documented in this encounter Plan of Treatment Upcoming Encounters Date Type Department Care Team (Late st Contact Info) Description 08/05/2024 4:30 PM EDT Office Visit Dermatology at [facility] [address] [place] [address] Rich Ivory MD [facility] [place] [address] documented as of this encounter Visit Diagnoses Diagnosis Fitting and adjustment of hearing aid- Primary documented in this encounter Care Teams Collection Analyst Relationship Specialty Start Date End Date Yarelis Shaikh MD [facility] D [address] [place] [address] PCP - General 02/15/10 12/20/17 documented as of this encounter
--- OUTSIDE RECORDS SUMMARY | 2023-10-29 18:30 | XMS_ITS | Encounter Summary ---
Author Organization [facility] [place] [address] Care Team Providers Care Register In Chancery Name Role Phone Yarelis Shaikh MD Primary Care Provider [phone] Encounter Details Date Type Department Care Team (Latest Contact Info) Description 09/01/2016 11:45 AM EDT Clinical Support Audiology at [address] [address] Katalina Hodgson, [place] [facility] [place] [address] Sensorineural hearing loss, asymmetrical Social History Tobacco Use Types Packs/Day Years [...] of this encounter Progress Notes * Katalina Hodgson - 09/01/2016 11:45 AM EDT AUDIOLOGY SECTION AMPLIFICATION REPAIR NOTE REPAIR WORK HEARING AID (right, left or both) Both SERIAL NUMBER CHANGED? Yes (CROS) WARRANTY CHANGED? Yes REPAIR WORK PERFORMED? (repair company/invoice number) Remount microphone, replace battery door, replaced CROS device ([employer] / [id number] & [id number] / 08.25.2016) CHARGE TO PATIENT? Yes S-REM VERIFICATION PERFORMED? Yes RE-PROGRAMMED? ([facility] session date) Yes PROGRAMS AND V/C STATUS CHANGED? No PHYSICAL AND ACOUSTIC INSPECTION PERFORMED? Yes DELIVERY (patient pick-up, patient seen, aid mailed or handed off) Mailed [place] patient [facility]? OTHER HEARING AID(S): ?? HEARING AID ?? RIGHT ?? LEFT ?? STYLE ?? BICROS Transmitter ?? RITE ?? MAKE/MODEL ?? Phonak ?? Phonak Audeo S Smart V ?? CASING COLOR ?? Mocha Taupe ?? Same ?? SERIAL NUMBER ?? [id number] ?? [id number] ?? BATTERY SIZE ?? 312 ?? 312 [...] SERIAL / INVOICE # ?? Invoice #: [id number] 03/16/16 ?? Serial #: [id number] TUBE/LORE (length/dome/mc kay stitcher size) ?? Length 2 tube ?? Length 2 standard mc kay stitcher/ medium open phonak dome ?? OTHER / COMMENTS ? Assistive Listening Devices/Wireless Accessories ?? Device? Phonak iCom ? Serial #? [id number] ? Fit Date? 11/17/10 ? Warranty Exp.? 01/29/12 ? documented in this encounter Plan of Treatment Upcoming Encounters Date Type Department Care Team (Late st Contact Info) Description 08/05/2024 4:30 PM EDT Office Visit Dermatology at [facility] [address] [place] [address] Rich Ivory MD [facility] DR EL[place] [address] documented as of this encounter Visit Diagnoses Diagnosis Sensorineural hearing loss, asymmetrical documented in this encounter Care Teams Register In Chancery Relationship Specialty Start Date End Date Yarelis Shaikh MD [facility] [address] [place] [address] PCP - General 02/15/10 12/20/17 documented as of this encounter
--- OUTSIDE RECORDS SUMMARY | 2023-10-29 18:30 | XMS_ITS | Encounter Summary ---
Author Organization [facility] Address [facility] [place] [address] Care Team Providers Care Pillowcase Folder Name Role Phone Yarelis Shakih MD Primary Care Provider Encounter Details Date Type Department Care Team (Late st Contact Info) Description 11/16/2010 [place] [address] Ro Parry RN Social History Tobacco Use Types Packs/Day Years [...] 4:30 PM EDT Office Visit Dermatology at [facility] [address] [place] [address] Rich Ivory MD [facility] [place] [address] documented as of this encounter Visit Diagnoses Not on filedocumented in this encounter Care Teams Pillowcase Folder Relationship Specialty Start Date End Date Yarelis Shaikh MD [facility] [address] [place] [address] PCP - General 02/15/10 12/20/17 documented as of this encounter
--- OUTSIDE RECORDS SUMMARY | 2023-10-29 18:30 | XMS_ITS | Encounter Summary ---
[place] [address] Care Team Providers Care Mental Health Therapist Name Role Phone Yarelis Shaikh MD Primary Care Provider [phone] Encounter Details Date Type Department Care Team (Late st Contact Info) Description 07/15/2014 3:15 PM EDT Office Visit Audiology at [address] [address] Amparo Ma, AUD [facility] [place] [address] Fitting and adjustment of hearing aid Social History Tobacco Use Types Packs/Day Years [...] Progress Notes * Amparo Graf, [place] - 07/15/2014 3:19 PM EDT AUDIOLOGY Basilio Duff was seen today for a hearing aid check following a hearing re- evaluation. Please refer to the audiogram and associated note for details on otologic symptoms and hearing test results. Mr. Duff reported that understanding speech in the presence of background noise continues to be chall enging, and he is unable to localize the direction of sound. His feels that he is not understanding speech her as well as he used to. That said, there are times when he does not use the hearing aids. The following actions were taken: ?? Both devices were cleaned and a listening check indicated that they were functioning appropriately. ?? Hearing aid programming was adjusted (gain for soft was increased and mid- frequency gain was increased) so that the aided responses approximated prescriptive targets for speech without exceeding MPO targets. Mr. Duff was subjectively satisfied with the sound quality of the aid, and loudness disc omfort was denied. The responses of the CROS transmitter were verified, and gain was increased by +3 dB for that device. Simulated real ear measures were obtained and function of the directional microphones was verified. Mr. Duff was provided 3 extra domes for the left hearing aid. Assistive listening devices such as the Geminare Pen or Amazing Hiring Director Of Nuclear Medicine + Remote Microphone were discussed, but Mr. Duff is not interested in pursuing this at this time. RECOMMENDATIONS Annual hearing evaluation and hearing aid check, sooner if concerns arise in the interim. Haleigh Vaca Clinical [place] [address] ; HEARING AID(S): HEARING AID RIGHT LEFT STYLE BICROS Transmitter RITE MAKE/MODEL Phonak Phonak Audeo S Smart V CASING COLOR Mocha Taupe Same SERIAL NUMBER [id number] BATTERY SIZE 312 312 BATTERY CLUB PROGRAM/SETTINGS FITTING ALGORITHM N/A DSL-Adult VERIFICATION METHOD N/A REM PROGRAMS Soundflow DISABLED FEATURES OTHER COMMENTS VC enabled HEARING AID WARRANTY ORIGINAL FIT DATE 10/20/10 10/20/10 CURRENT STATUS Under byproducts extractor repair and L&D coverage until 12/25/12 Under byproducts extractor repair and L&D coverage until 12/25/13 EARMOLD (if BTE JOHNSON) LAB Phonak EM (Style/material/vent/color) CROS-Tip IMPRESSION DATE 08/26/10 INVOICE # Invoice #: [id number] Serial #: [id number] TUBE/LORE (length/dome/collar pointer size) Length 2 tube Length 2 standard collar pointer/ medium open phonak dome OTHER / COMMENTS Assistive Listening Devices/Wireless Accessories Device Phonak iCom Serial # [id number] Fit Date 11/17/10 Warranty Exp. 01/29/12 documented in this encounter Plan of Treatment Upcoming Encounters Date Type Department Care Team (Late st Contact Info) Description 08/05/2024 4:30 PM EDT Office Visit Dermatology at [facility] [address] [place] [address] Rich Ivory MD [facility] [place] [address] documented as of this encounter Visit Diagnoses Diagnosis Fitting and adjustment of hearing aid documented in this encounter Care Teams Mental Health Therapist Relationship Specialty Start Date End Date Yarelis Shaikh MD [facility] D [address] [place] [address] PCP - General 02/15/10 12/20/17 documented as of this encounter
--- OUTSIDE RECORDS SUMMARY | 2023-10-29 18:30 | XMS_ITS | Encounter Summary ---
Author Organization [facility] [place] [address] Care Team Providers Care Buffet Waiter/Waitress Name Role Phone Yarelis Shaikh MD Primary Care Provider [phone] Encounter Details Date Type Department Care Team (Late st Contact Info) Description 03/24/2013 Telephone Audiology at [address] [phone] Amparo Ma AUD [facility] [place] [address] Social History Tobacco Use Types Packs/Day Years [...] Miscellaneous Notes * Telephone Encounter - Tabatha Dukes CMA - 03/24/2013 12:36 PM EST Reminder sent. documented in this encounter Plan of Treatment Upcoming Encounters Date Type Department Care Team (Late st Contact Info) Description 08/05/2024 4:30 PM EDT Office Visit Dermatology at [facility] [address] [place] [address] Rich Ivory MD [facility] DR [place] [address] documented as of this encounter Visit Diagnoses Not on filedocumented in this encounter Care Teams Buffet Waiter/Waitress Relationship Specialty Start Date End Date Yarelis Shaikh MD [facility] D [address] [place], [place] [address] PCP - General 02/15/10 12/20/17 documented as of this encounter
--- OUTSIDE RECORDS SUMMARY | 2023-10-29 18:30 | XMS_ITS | Encounter Summary ---
Author Organization [facility] [place] [address] Care Team Providers Care Sample Distributor Name Role Phone Yarelis Shaikh MD Primary Care Provider Encounter Details Date Type Department Care Team (Late st Contact Info) Description 06/25/2015 9:00 AM EDT Office Visit Audiology at [address] [address] Dominga Patrick AUD [facility] [place] [address] PD (perceptive deafness), asymmetrical Social History Tobacco Use Types Packs/Day [...] as of this encounter Progress Notes * Dominga Patrick AUD - 06/25/2015 9:32 [place] [address] (phone), (fax) Basilio Duff was seen on 06/25/2015 for an audiologic evaluation. Please refer to the scanned audiogram for findings, impressions, and recommendations. documented in this encounter Plan of Treatment Upcoming Encounters Date Type Department Care Team (Late st Contact Info) Description 08/05/2024 4:30 PM EDT Office Visit Dermatology at [facility] [address] [place] [address] Rich Ivory MD [facility] [place] [address] documented as of this encounter Visit Diagnoses Diagnosis PD (perceptive deafness), asymmetrical Sensorineural hearing loss, asymmetrical documented in this encounter Care Teams Sample Distributor Relationship Specialty Start Date End Date Yarelis Shaikh MD [facility] D [address] [place] [address] PCP - General 02/15/10 12/20/17 documented as of this encounter
--- OUTSIDE RECORDS SUMMARY | 2023-10-29 18:30 | XMS_ITS | Encounter Summary ---
Author Organization [facility] Address [facility] [place] [address] Care Team Providers Care Shoe Cutter Name Role Phone Yarelis Shaikh MD Primary Care Provider [phone] Reason for Visit * Reason Comments Skin Check Encounter Details Date Type Department Care Team (Late st Contact Info) Description 04/15/2015 11:00 AM EST Office Visit Dermatology at [facility] [address] [place] [address] Rich Ivory MD [facility] [place] [address] SK (seborrheic keratosis); Skin exam for malignant neoplasm Social History Tobacco Use Types Packs/Day Years [...] Progress Notes * Rich Ivory MD - 04/15/2015 11:07 AM EST Basilio Wolfe Omega 04/15/2015 [id number] Roney Ivory MD ([id number]) Chief Problem: 1. Pigmented Lesion and Skin Cancer Examination History: 69 y.o. year old male. Established/New patient to me. No significant changes in health or medications since last visit. Overall doing well. Points out a few lesions of concern. Medications: reviewed All: reviewed Review of Systems: Feels well, no fatigue, no weight loss, no other skin concerns Current Outpatient Prescriptions on File Prior to Visit Medication Sig Dispense Refill ??? fluocinolone-shower cap (DERMA-SMOOTHE/FS SCALP OIL) 0.01 % Oil Apply 1 applicator topically nightly. 60 mL PRN ??? tacrolimus (PROTOPIC) 0.1 % ointment Apply 1 applicator topically 2 times daily. 100 g PRN ??? aspirin 325 mg tablet Take 325 [...] soles were also examined. Specific findings: 1. Scattered 1mm acantholytic pink papules located on the trunk. Angel's disease 2. 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 Not bothersome topatient, no treatment necessary at this time. 2. Inverse Psoriasis Treatment/Plan: Discussion - Spent over half of this visit discussing pathophysiology and the diagnosis, and counselling this patient on treatment options, expectations and follow-up plan. - Specifically discussed: 1. Sun avoidance re-emphasized, sunscreen, hats, clothing as always. 2. Continue use of Protopic for management of Inverse Psoriasis, patient will call if a refill is needed. Follow up: 1 year skin cancer exam, sooner if needed I am documenting this encounter acting as the scribe for and in the presence of Dr. Ivory, [facility], Clinical Scribe. I performed the above scribed service and agree with the accuracy of the documentation in this encounter, MD Roney Napoles M.D. Section of Dermatology documented in this encounter Plan of Treatment Upcoming Encounters Date Type Department Care Team (Late st Contact Info) Description 08/05/2024 4:30 PM EDT Office Visit Dermatology at [facility] [address] [place] [address] Rich Ivory MD [facility] [place] [address] documented as of this encounter Visit Diagnoses Diagnosis SK (seborrheic keratosis) Other seborrheic keratosis Skin exam for malignant neoplasm Screening for malignant neoplasm of the skin documented in this encounter Care Teams Shoe Cutter Relationship Specialty Start Date End Date Yarelis Shaikh MD [facility] [address] [place] [address] PCP - General 02/15/10 12/20/17 documented as of this encounter
--- OUTSIDE RECORDS SUMMARY | 2023-10-29 18:30 | XMS_ITS | Encounter Summary ---
Author Organization [facility] Address [facility] [place] [address] Care Team Providers Care Parachute Supervisor Name Role Phone Yarelis Shaikh MD Primary Care Provider Reason for Visit * Reason Comments Skin Check Encounter Details Date Type Department Care Team (Late st Contact Info) Description 10/21/2012 3:05 PM EDT Follow-Up Dermatology at [facility] [address] [place] [phone] Rich Ivory MD [facility] DR ELVI [place] [address] Blue nevus of foot (Primary Dx) Discharge Disposition: Home Social History [...] Progress Notes * Rich Ivory MD - 10/21/2012 3:25 PM EDT Basilio Duff [id number] 10/21/2012 Roney Ivory MD ([id number]) Chief Problem: 1. Skin Cancer and Pigmented Lesion Examination 2. History of Actinic Keratoses 3. History of Scalp Psoriasis 3. History of rosacea History: 66 year old man. Established patient to me, presents today with with . Here for skin cancer and pigmented lesion exam. No specific concerns today . No significant changes in health or medications since last visit. Current Outpatient Prescriptions on File Prior to Visit Medication Sig Dispense Refill ??? fluocinolone-shower cap (DERMA-SMOOTHE/FS SCALP OIL) 0.01 % Oil Apply 1 applicator topically nightly. 60 mL PRN ??? tacrolimus (PROTOPIC) 0.1 % ointment Apply 1 applicator topically 2 times daily. 100 g PRN ??? aspirin 325 mg tablet Take 325 mg by mouth daily. Review of patient's allergies indicates no known allergies. Examination: Patient was alert and in no noticeable distress. A skin examination was performed. This includes the head, neck, face and scalp including behind the ears. The chest, abdomen and back, as well as the arms, hands, palms, fingers; legs, feet, toes and soles were also examined. Specific findings: - Blue macule on the left dorsal foot, benign appearing, reassured - Scattered well-demarcated, erythematous plaque noted right axilla Diagnosis/Assessment: 1. Blue nevus 2. Inverse Psoriasis Treatment Plan: Discussion - Spent over half of this visit discussing pathophysiology and the diagnosis, and counseling this patient on treatment options, expectations and follow-up plan. - Specifically discussed: -Continue with Protopic to the axilla and groin. Encouraged to use Harmon Smooth to the scalp Follow up: Full skin check 1 year sooner if needed I am documenting this encounter acting as the scribe for and in the presence of Regan Singh LPN. I performed the above scribed service and agree with the accuracy of the documentation in this encounter, Roney Ivory MD documented in this encounter Plan of Treatment Upcoming Encounters Date Type Department Care Team (Late st Contact Info) Description 08/05/2024 4:30 PM EDT Office Visit Dermatology at [facility] [address] [place] [address] Rich Ivory MD [facility] DR ELVI [place] [address] documented as of this encounter Visit Diagnoses Diagnosis Blue nevus of foot- Primary Benign neoplasm of skin of lower limb, including hip documented in this encounter Care Teams Parachute Supervisor Relationship Specialty Start Date End Date Yarelis Shaikh MD [facility] [address] [place] [address] PCP - General 02/15/10 12/20/17 documented as of this encounter
--- OUTSIDE RECORDS SUMMARY | 2023-10-29 18:30 | XMS_ITS | Encounter Summary ---
Author Organization [facility] [place] [address] Care Team Providers Care Fundraising Consultant Name Role Phone Yarelis Shaikh MD Primary Care Provider Encounter Details Date Type Department Care Team (Late st Contact Info) Description 04/27/2015 [place] [address] Alexandro Foss MD [facility] [place] [address] Social History Tobacco Use Types Packs/Day Years [...] 4:30 PM EDT Office Visit Dermatology at [facility] [address] [place] [address] Rich Ivory MD [facility] [place] [address] documented as of this encounter Visit Diagnoses Not on filedocumented in this encounter Care Teams Fundraising Consultant Relationship Specialty Start Date End Date Yarelis Shaikh MD [facility] [address] [place] [address] PCP - General 02/15/10 12/20/17 documented as of this encounter
--- OUTSIDE RECORDS SUMMARY | 2023-10-29 18:30 | XMS_ITS | Encounter Summary ---
Author Organization [facility] Address [facility] [place] [address] Care Team Providers Care Car Worker Name Role Phone Yarelis Shaikh MD Primary Care Provider Reason for Visit * Reason Comments Skin Check Encounter Details Date Type Department Care Team (Late st Contact Info) Description 11/10/2013 11:00 AM EDT Follow-Up Dermatology at [facility] [address] [place] [phone] Rich Ivory MD [facility] [address] [place] [address] Multiple benign nevi (Primary Dx) Discharge Disposition: Home Social History [...] Progress Notes * Rich Ivory MD - 11/10/2013 11:08 AM EDT Basilio Duff 11/10/2013 [id number] Roney Ivory MD ([id number]) Chief Problem: 1. Pigmented Lesion and Skin Cancer Examination 2. History of actinic keratoses, scalp psoriasis, rosacea History: 67 y.o. year old male. Established patient to me. No significant changes in health or medications since last visit on 10/21/12 - No specific concerns for skin cancer today, psoriasis clear today not needing to use any treatment currently Medications: reviewed All: reviewed Review of Systems: [...] tablet Take 325 mg by mouth daily. Examination: Patient was alert, well-appearing and in no noticeable distress. A skin examination was performed. This includes the head, neck, face and scalp including behind the ears. The chest, abdomen, back, and axillae, as well as the arms, hands, palms, fingers. Legs, feet, toes and soles were also examined. Specific findings: 1. scattered benign appearing nevi Assessment/Diagnosis: 1. benign appearing nevi 2. benign skin exam today Treatment/Plan: Discussion - Spent over half of this visit discussing pathophysiology and the diagnosis, and counselling this patient on treatment options, expectations and follow-up plan. - Specifically discussed: 1. Sun avoidance re-emphasized, sunscreen, hats, clothing as always. Follow up: 1 year skin cancer exam, sooner if needed I am documenting this encounter acting as the scribe for and in the presence of MARY Singh LPN I performed the above scribed service and agree with the accuracy of the documentation in this encounter, MD Roney Napoles M.D. Section of Dermatology documented in this encounter Plan of Treatment Upcoming Encounters Date Type Department Care Team (Late st Contact Info) Description 08/05/2024 4:30 PM EDT Office Visit Dermatology at [facility] [address] [place] [address] Rich Ivory MD [facility] [place] [address] documented as of this encounter Visit Diagnoses Diagnosis Multiple benign nevi- Primary Benign neoplasm of skin, site unspecified documented in this encounter Care Teams Car Worker Relationship Specialty Start Date End Date Yarelis Shaikh MD [facility] [address] [place] [address] PCP - General 02/15/10 12/20/17 documented as of this encounter
--- OUTSIDE RECORDS SUMMARY | 2023-10-29 18:30 | XMS_ITS | Encounter Summary ---
Author Organization [facility] [address] Care Team Providers Care Private Banker Name Role Phone Yarelis Shaikh MD Primary Care Provider Reason for Visit * Reason Comments Follow-up Encounter Details Date Type Department Care Team (Late st Contact Info) Description 05/02/2012 9:30 AM EST Follow-Up Audiology at [address] [address] Irena Magallon, [facility] [place] [address] Sensorineural hearing loss, asymmetrical (Primary Dx) Discharge Disposition: Home Social History [...] as of this encounter Progress Notes * Irena Magallon, [place] - 05/02/2012 10:12 AM [place] [address] Basilio Duff, 66 y.o., was seen on 05/02/2012 for an audiologic evaluation in conjunction with Dr. Oleary for amplification management. Please refer to the scanned audiogram listed under Scan Doc in Chart Review for findings, impressions and recommendations. It may take up to 24 hours for the audiogram to be scanned. Enclosure: Audiogram [facility] [place] [address] documented in this encounter Plan of Treatment Upcoming Encounters Date Type Department Care Team (Late st Contact Info) Description 08/05/2024 4:30 PM EDT Office Visit Dermatology at [facility] [address] [place] [address] Rich Ivory MD [facility] [address] [place] [address] documented as of this encounter Visit Diagnoses Diagnosis Sensorineural hearing loss, asymmetrical- Primary documented in this encounter Care Teams Private Banker Relationship Specialty Start Date End Date Yarelis Shaikh MD [facility] [address] [place] [address] PCP - General 02/15/10 12/20/17 documented as of this encounter
--- OUTSIDE RECORDS SUMMARY | 2023-10-29 18:30 | XMS_ITS | Encounter Summary ---
Author Organization [facility] [place] [address] Care Team Providers Care Commercial Carpenter Name Role Phone Yarelis Shaikh MD Primary Care Provider [phone] Reason for Visit * Reason Comments JOHNSON Fitting Or Adjustment Encounter Details Date Type Department Care Team (Late st Contact Info) Description 11/17/2010 11:00 AM EDT Office Visit Audiology at [address] [address] Amparo Ma AUD [facility] [place] [address] Fitting and adjustment of hearing aid (Primary [...] Progress Notes * Amparo Graf, [place] - 11/17/2010 3:23 PM EDT AUDIOLOGY SECTION HEARING AID CHECK REPORT Basilio Duff returns today after fitting of a BICROS hearing aid system and for fitting of a Phonak iCom. Mr. Duff reported that he is understanding speech much better with the new devices. He stated that the volume is comfortable in most situations and that they fit comfortably. Otoscopy showed clear ear canals and no signs of irritation from the hearing aids. The following actions were taken: ?? The iCom was synchronized with the hearing aids. Mr. Duff was counseled on use and function of the system, and he was able to hear my voice well when I called his cell phone in the clinic. He wascounseled on the 30 day trial period and the warranty expiration. ?? Mr. Duff was provided 3 extra domes for the left aid. HEARING AID(S): HEARING AID RIGHT LEFT STYLE BICROS Transmitter RITE MAKE/MODEL Phonak Phonak Audeo S Smart V CASING COLOR Mocha Taupe Same SERIAL NUMBER [id number] BATTERY SIZE [id number] BATTERY CLUB PROGRAM/SETTINGS FITTING ALGORITHM N/A DSL-Adult VERIFICATION METHOD N/A REM PROGRAMS Soundflow DISABLED FEATURES OTHER COMMENTS VC enabled HEARING AID WARRANTY ORIGINAL FIT DATE 10/20/10 10/20/10 CURRENT STATUS Under submarine advisory team watch officer repair and L&D coverage until 12/25/12 Under submarine advisory team watch officer repair and L&D coverage until 12/25/13 EARMOLD (if BTE JOHNSON) LAB Phonak EM (Style/material/vent/color) CROS-Tip IMPRESSION DATE 08/26/10 INVOICE # Invoice #: [id number] Serial #: [id number] TUBE/LORE (length/dome/life coach size) Length 2 tube Length 2 standard life coach/ medium open phonak pointed dome OTHER / COMMENTS Assistive Listening Devices/Wireless Accessories Device Phonak iCom Serial # [id number] Fit Date 11/17/10 Warranty Exp. 01/29/12 Plan: Annual audiologic evaluation and hearing aid check. Patient was advised to contact the clinic if concerns arise in the interim. Haleigh Vaca Clinical Internal Communications Writer [place] [phone] ; documented in this encounter Plan of Treatment Upcoming Encounters Date Type Department Care Team (Late st Contact Info) Description 08/05/2024 4:30 PM EDT Office Visit Dermatology at [facility] [address] [place] [address] Rich Ivory MD [facility] [place] [address] documented as of this encounter Visit Diagnoses Diagnosis Fitting and adjustment of hearing aid- Primary documented in this encounter Care Teams Commercial Carpenter Relationship Specialty Start Date End Date Yarelis Shaikh MD [facility] D [address] [place] [address] PCP - General 02/15/10 12/20/17 documented as of this encounter
--- OUTSIDE RECORDS SUMMARY | 2023-10-29 18:30 | XMS_ITS | Encounter Summary ---
Author Organization [facility] Address [facility] [place] [address] Care Team Providers Care Hack Saw Operator Name Role Phone Yarelis Shaikh MD Primary Care Provider Reason for Visit * Reason Comments Skin Check Encounter Details Date Type Department Care Team (Late st Contact Info) Description 04/03/2017 10:00 AM EST Office Visit Dermatology at [facility] [address] [place] [address] Rich Ivory MD [facility] [place] [address] Actinic keratosis; Lentigines; Grantsville's disease; Inverse psoriasis Social History Tobacco Use Types Packs/Day [...] Progress Notes * Rich Ivory MD - 04/03/2017 10:00 AM EST Basilio Duff 04/03/2017 [id number] Roney Ivory MD ([id number]) Chief Problem: 1. 1 Year Pigmented Lesion and Skin Cancer Examination 2. History of actinic keratoses, scalp psoriasis, rosacea History: 71 y.o. year old male. Established patient to me. No significant changes in health or medications since last visit. Patient presents to the clinic today for a full skin cancer examination with history as listed above. No specific areas of concern today. Medications: reviewed All: reviewed Review of Systems: Feels well, no fatigue, no weight loss, no other skin concerns Current Outpatient Prescriptions on File Prior to Visit Medication Sig Dispense Refill ??? multivitamin (THERAGRAN) Tablet Take 1 tablet by mouth daily. ??? tacrolimus (PROTOPIC) 0.1 % ointment Apply 1 applicator topically 2 times daily. 100 g PRN ??? aspirin 325 mg tablet Take 325 mg by mouth daily. ??? fluocinolone (DERMA-SMOOTHE) 0.01 % Oil Apply topically to the scalp nightly as needed (Patientnot taking: Reported on 04/03/2017) 120 mL 3 No current facility-administered medications on file prior to visit. Examination: Patient was alert, well-appearing and in no noticeable distress. A skin examination was performed. This includes the head, neck, face and scalp including behind the ears. The chest, abdomen, back, and axillae, as well as the arms, hands, palms, fingers. Legs, feet, toes and soles were also examined. Specific findings: 1. Actinic Keratosis x 1 located on the left pentecostalism 2. Solar Lentigines located on the trunk and extremities 3. History of scalp psoriasis 4. Inverse psoriasis located on the right axilla and heels 5. ? Trauma vs. 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 Actinic Keratosis, treated with cryotherapy today 2. Solar Lentigines 3. History of scalp psoriasis 4. Inverse psoriasis 5. ? Trauma vs. basal cell carcinoma 6. Angel's Disease Procedure: 1. LN2 x 2 to Actinic Keratosis x 1 Treatment/Plan: Discussion - Spent over half of this visit discussing pathophysiology and the diagnosis, and counselling this patient on treatment options, expectations and follow-up plan. - Specifically discussed: 1. Sun avoidance re-emphasized, sunscreen, hats, clothing as always. 2. If the lesion on the right jain does not heal in 4-6 weeks advised patient to RTC and we will preform a biopsy. Recommended patient avoid scratching the area 3. Advised patient to continue to apply Protopic 0.1% ointment as previously prescribed in the right axilla. We will also plan to treat the heels with flucinonide which patient has at home. 4. Combined decision to treat actinic keratosis x [address] x 2 in office today. Follow up: 1 year skin cancer exam, sooner if needed I am documenting this encounter acting as the scribe for and in the presence of Dr. Ivory,Barbara Hess LPN and Leni Matos I performed the above scribed service and agree with the accuracy of the documentation in this encounter, MD Roney Napoles M.D. Section of Dermatology documented in this encounter Plan of Treatment Upcoming Encounters Date Type Department Care Team (Late st Contact Info) Description 08/05/2024 4:30 PM EDT Office Visit Dermatology at [address] [address] Rich Ivory MD [facility] [place] [address] documented as of this encounter Visit Diagnoses Diagnosis Actinic keratosis Lentigines Other dyschromia Gr[place]ville's disease Other specified dermatoses Inverse psoriasis Other psoriasis documented in this encounter Care Teams Hack Saw Operator Relationship Specialty Start Date End Date Yarelis Shaikh MD [facility] D [address] [place] [address] PCP - General 02/15/10 12/20/17 documented as of this encounter
--- OUTSIDE RECORDS SUMMARY | 2023-10-29 18:30 | XMS_ITS | Encounter Summary ---
Author Organization [facility] [place] [address] Care Team Providers Care Coat Repair Inspector Name Role Phone Yarelis Shaikh MD Primary Care Provider Encounter Details Date Type Department Care Team (Late st Contact Info) Description 05/02/2012 External Results Audiology at [address] [id number] Irena Magallon, [place] [facility] [place] [address] Social History Tobacco Use Types Packs/Day Years [...] 4:30 PM EDT Office Visit Dermatology at [facility] [address] [place] [phone] Rich Ivory MD [facility] DR ELVI [place] [address] documented as of this encounter Procedures Procedure Name Priority Date/Time Associated Diagnosis Comments AUDIOLOGY SCAN Routine 05/02/2012 documented in this encounter Results * Scan Doc: Audiology (05/02/2012) Irena Magallon AUD MEDIA MGR SCAN EXT O RDR/RSLT documented in this encounter Visit Diagnoses Not on filedocumented in this encounter Care Teams Coat Repair Inspector Relationship Specialty Start Date End Date Yarelis Shaikh MD [facility] [address] [place] [address] PCP - General 02/15/10 12/20/17 documented as of this encounter
--- OUTSIDE RECORDS SUMMARY | 2023-10-29 18:30 | XMS_ITS | Encounter Summary ---
Author Organization [facility] [place] [address] Care Team Providers Care Automotive Brake Technician Name Role Phone Yarelis Shaikh MD Primary Care Provider [phone] Reason for Visit * Reason Comments Hearing Loss Encounter Details Date Type Department Care Team (Latest Contact Info) Description 09/05/2010 2:30 PM EDT Office Visit Audiology at [address] [address] Amparo Ma, [facility] [place] [address] Sensorineural hearing loss, asymmetrical (Primary Dx); Acoustic neuroma Social History Tobacco Use Types Packs/Day Years [...] Progress Notes * Amparo Graf, [facility] - 09/05/2010 5:11 PM EDT BAHA SELECTION APPOINTMENT Mr. Basilio Duff was seen today for a Baha selection appointment. He was accompanied by his . 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 The following options were discussed: Baha: Mr. Duff is a candidate for a BAHA, an osseointegrated bone-anchored implant that, for individualswith single-sided deafness, helps to overcome the head- shadow effect (it can provide awareness, though not localization, of sounds originating on the side of the unilateral hearing loss). A review ofMr. Arana's audiogram indicates that he does meet the audiological criteria for BAHA on the right side. BICROS Hearing Aid System: A BICROS system (transmitter on the right side w/ toolroom machinist on the left) may help with speech understanding of individuals on the right side. However, given that the signal will be sent to the left ear, it is not expected to aid in sound localization. Mr. Duff was interested in trying the Phonak BICROS hearing aid system. He was counseled regardingleft hearing aid styles, technology, and pricing options. In consideration of Mr. Duff's auditory demands and degree/configuration of hearing loss, it was agreed that a Phonak Digital Tech Frontiereo S Smart V RITE hearing aid on the left side with the transmitter on the right side would be adequate for his needs. An earmold impression were taken of the right ear (for a CROS tip) without incident. Mr. Duff was counseled about the terms of the purchase and the thirty day return privilege. The New Hearing Instruments: Itemized Fees form was reviewed and signed by Mr. Duff, and he understood the terms of payment. Recommendations Return to clinic for fitting of a CROS hearing aid system Haleigh Vaca [place] [address] documented in this encounter Procedure Notes * Provider, Scanning - 09/15/2010 8:37 AM EDTAssociated Order(s): SCAN DOC: AUDIOLOGY documented in this encounter Plan of Treatment Upcoming Encounters Date Type Department Care Team (Late st Contact Info) Description 08/05/2024 4:30 PM EDT Office Visit Dermatology at [facility] [address] [place] [address] [facility] [place] [address] documented as of this encounter Procedures Procedure Name Priority Date/Time Associated Diagnosis Comments AUDIOLOGY SCAN 09/15/2010 8:37 AM EDT documented in this encounter Results * SCAN DOC: AUDIOLOGY (09/15/2010 8:37 AM EDT) Narrative 09/15/2010 8:37 AM EDT Procedure Note Provider, Scanning - 09/15/2010 8:37 AM EDT Scanning Provider MEDIA MGR SCAN EXT O RDR/RSLT documented in this encounter Visit Diagnoses Diagnosis Sensorineural hearing loss, asymmetrical- Primary Acoustic neuroma Benign neoplasm of cranial nerves documented in this encounter Care Teams Automotive Brake Technician Relationship Specialty Start Date End Date Yarelis Shaikh MD CECILIO D [address] [place] [address] PCP - General 02/15/10 12/20/17 documented as of this encounter
--- OUTSIDE RECORDS SUMMARY | 2023-10-29 18:30 | XMS_ITS | Encounter Summary ---
[place] [address] Care Team Providers Care Pbx Installer Name Role Phone Yarelis Shaikh MD Primary Care Provider [phone] Reason for Referral * Diagnostic Test (Routine) - Closed Specialty Diagnoses / Procedures Referred By Connie camp Referred To Contact Radiology Diagnoses Right acoustic neuroma Cerebral meningioma Procedures MRI Brain With/WO Contrast (GENERIC) Carin Dsouza [facility] [address] [place] [address] Referral ID Status Reason Start Date Expiration Date V isits Requested Visits Authorized [id number] Closed Specialty Service Requested 06/17/2015 08/15/2015 1 1 Reason for Visit * Diagnostic Test (Routine) - Closed Specialty Diagnoses / Procedures Referred By Connie camp Referred To Contact Radiology Diagnoses Right acoustic neuroma Cerebral meningioma Procedures MRI Brain With/WO Contrast (GENERIC) Carin Dsouza [facility] [place] [address] [place] [address] Referral ID Status Reason Start Date Expiration Date V isits Requested Visits Authorized [id number] Closed Specialty Service Requested 06/17/2015 08/15/2015 1 1 Encounter Details Date Type Department Care Team (Latest Contact Info) Description 06/25/2015 11:26 AM EDT - 06/25/2015 11:59 PM EDT Hospital [place] [address] Alexandro Foss MD [facility] [place] [address] Right acoustic neuroma; Cerebral meningioma Discharge Disposition: Home Social History Tobacco Use [...] tablet Take 325 mg by mouth daily. tacrolimus (PROTOPIC) 0.1 % ointment Apply 1 applicator topically 2 times daily. 100 g PRN 02/07/2011 11/29/2017 documented as of this encounter Plan of Treatment Upcoming Encounters Date Type Department Care Team (Late st Contact Info) Description 08/05/2024 4:30 PM EDT Office Visit Dermatology at [facility] [address] [place] [address] Rich Ivory MD [facility] [place] [address] documented as of this encounter Procedures Procedure Name Priority Date/Time Associated Diagnosis Comments MRI BRAIN WWO CONTRAST (GENERIC) Routine 06/25/2015 1:20 PM EDT Right acoustic neuroma Cerebral meningioma documented in this encounter Results * MRI Brain With/WO Contrast (GENERIC) (06/25/2015 1:20 PM EDT) Anatomical Region Laterality Modality Head Magnetic Resonan ce Impressions 06/25/2015 3:14 PM EDT IMPRESSION: 1. ??Unchanged right IAC enhancing mass. 2. ??Unchanged dural ossification along the interhemispheric falx. Narrative 06/25/2015 3:14 PM EDT EXAMINATION: MRI BRAIN WWO CONTRAST CLINICAL HISTORY: R acoustic neuroma, parafalcine meningioma, evaluate for change TECHNIQUE: IAC protocol MRI of the brain was performed before and after the administration of 9 mL Gadavist COMPARISON: MRI brain 04/20/2010 FINDINGS: Unchanged 4 x 8 x 6 mm enhancing mass in the inferior right IAC. Normal left IAC. Multiple punctate foci of subcortical white matter signal alteration are unchanged. The ventricles are normal in size. No mass effect, midline shift or extra-axial collection. Unchanged T1 hyperintense signal along the interhemispheric falx. No evidence for recent infarction or abnormal enhancement. The midline sagittal structures are normal in appearance. Regional bone marrow demonstrates no evidence for aggressive marrow replacing process. Mucosal thickening of the left maxillary sinus, similar to previous exam. The mastoid air cells are clear. The orbits are normal in appearance. Major intracranial vascular flow voids are normal. Procedure Note Kelly Mena MD - 06/25/2015 EXAMINATION: MRI BRAIN WWO CONTRAST CLINICAL HISTORY: R acoustic neuroma, parafalcine meningioma, evaluatefor change TECHNIQUE: IAC protocol MRI of the brain was performed before and afterthe administration of 9 mL Gadavist COMPARISON: MRI brain 04/20/2010 FINDINGS: Unchanged 4 x 8 x 6 mm enhancing mass in the inferior rightIAC. Normal left IAC. Multiple punctate foci of subcortical white mattersignal alteration are unchanged. The ventricles are normal in size. No masseffect, midline shift or extra-axial collection. Unchanged T1 hyperintense signalalong the interhemispheric falx. No evidence for recent infarction or abnormal enhancement. The midline sagittal structures are normal in appearance.Regional bone marrow demonstrates no evidence for aggressive marrow replacingprocess. Mucosal thickening of the left maxillary sinus, similar to previous exam.The mastoid air cells are clear. The orbits are normal in appearance. Major intracranial vascular flow voids are normal. IMPRESSION IMPRESSION: 1. Unchanged right IAC enhancing mass. 2. Unchanged dural ossification along the interhemispheric falx. Alexandro Foss MD IMG MRI ORDERABLES documented in this encounter Visit Diagnoses Diagnosis Right acoustic neuroma Benign neoplasm of cranial nerves Cerebral meningioma Benign neoplasm of cerebral meninges documented in this encounter Care Teams Pbx Installer Relationship Specialty Start Date End Date Yarelis Shaikh MD [facility] D [address] [place] [address] PCP - General 02/15/10 12/20/17 documented as of this encounter
--- OUTSIDE RECORDS SUMMARY | 2023-10-29 18:30 | XMS_ITS | Encounter Summary ---
Author Organization [facility] [place] [address] Care Team Providers Care Inspector Electromechanical Name Role Phone Yarelis Shaikh MD Primary Care Provider Encounter Details Date Type Department Care Team (Latest Contact Info) Description 08/18/2016 9:30 AM EDT Office Visit Audiology at [address] [address] Brenda Kendrick AUD [facility] [place] [place] [address] Sensorineural hearing loss, asymmetrical Social History Tobacco [...] as of this encounter Progress Notes * Brenda Kendrick AUD - 08/18/2016 9:30 AM ED[place] [address] Basilio Duff was seen on 08/18/2016 for an audiologic evaluation in conjunction with Helene Ovalles for a hearing aid check appointment. Please refer to the scanned audiogram listed under Procedures for findings, impressions and recommendations. It may take up to 24 hours for the audiogram to be scanned. Helene Dow [facility] [place] [address] documented in this encounter Plan of Treatment Upcoming Encounters Date Type Department Care Team (Late st Contact Info) Description 08/05/2024 4:30 PM EDT Office Visit Dermatology at [facility] [address] [place] [address] Rich Ivory MD [facility] DR [place] [address] documented as of this encounter Procedures Procedure Name Priority Date/Time Associated Diagnosis Comments COMPREHENSIVE HEARING TEST Routine 08/18/2016 9:22 AM EDT documented in this encounter Results * Comprehensive hearing test (08/18/2016 9:22 AM EDT) 08/18/2016 9:22 AM EDT Narrative AUDBASE COMP - 08/18/2016 9:22 AM EDT Follow up with Helene Ovalles for management of amplification Procedure Note Unknown - 08/18/2016 Follow up with Helene Ovalles for management of amplification Unknown AUDIOLOGY SERVICES O RDERABLES AUDBASE COMP documented in this encounter Visit Diagnoses Diagnosis Sensorineural hearing loss, asymmetrical documented in this encounter Care Teams Inspector Electromechanical Relationship Specialty Start Date End Date Yarelis Shaikh MD [facility] [address] [place] [address] PCP - General 02/15/10 12/20/17 documented as of this encounter
--- OUTSIDE RECORDS SUMMARY | 2023-10-29 18:30 | XMS_ITS | Encounter Summary ---
Author Organization [facility] [place] [address] Care Team Providers Care Training And Development Manager Name Role Phone Yarelis Shaikh MD Primary Care Provider [phone] Reason for Visit * Reason Onset Date Comments Medication Refill 02/07/2011 Encounter Details Date Type Department Care Team (Late st Contact Info) Description 02/07/2011 [place] [address] [facility] [place] [address] Social History Tobacco Use Types Packs/Day Years [...] encounter Miscellaneous Notes * Telephone Encounter - rBenda Echevarria RN - 02/07/2011 11:26 AM EST Pt. requested renewal of Protopic and Dermasmoothe for treatment of scalp psoriasis and penelope derm. Scripts sent to [facility] in [facility]. documented in this encounter Plan of Treatment Upcoming Encounters Date Type Department Care Team (Late st Contact Info) Description 08/05/2024 4:30 PM EDT Office Visit Dermatology at [facility] [address] [place] [address] [facility] [place] [address] documented as of this encounter Visit Diagnoses Not on filedocumented in this encounter Care Teams Training And Development Manager Relationship Specialty Start Date End Date Yarelis Shaikh MD [facility] D [address] [place] [address] PCP - General 02/15/10 12/20/17 documented as of this encounter
--- OUTSIDE RECORDS SUMMARY | 2023-10-29 18:30 | XMS_ITS | Encounter Summary ---
Author Organization [place] [address] Care Team Providers Care Toolroom Helper Name Role Phone Yarelis Shaikh MD Primary Care Provider Encounter Details Date Type Department Care Team (Latest Contact Info) Description 03/21/2016 1:15 PM EST Clinical Support Audiology at [address] [address] Ro Joseph Sensorineural hearing loss, asymmetrical Social History Tobacco [...] as of this encounter Progress Notes * Ro Joseph - 03/21/2016 1:15 PM EST New CROS Tip arrived and mailed to pt. HEARING AID(S): ?? HEARING AID ?? RIGHT ?? LEFT ?? STYLE ?? BICROS Transmitter ?? RITE ?? MAKE/MODEL ?? Phonak ?? Phonak Audeo S Smart V ?? CASING COLOR ?? Mocha Taupe ?? Same ?? SERIAL NUMBER ?? [id number] ?? [id number] ?? BATTERY SIZE ?? 312 ?? 312 ?? BATTERY CLUB ? PROGRAM/SETTINGS ? FITTING ALGORITHM ?? N/A ?? DSL-Adult ?? VERIFICATION METHOD ?? N/A ?? REM ?? PROGRAMS ? Soundflow ?? DISABLED FEATURES ? OTHER COMMENTS ?? VC enabled ? HEARING AID WARRANTY ? ORIGINAL FIT DATE ?? 10/20/10 ?? 10/20/10 ?? CURRENT STATUS ?? Under dye range operator repair and L&D coverage until 12/25/12 ?? Under dye range operator repair and L&D coverage until 12/25/13 ?? EARMOLD (if BTE JOHNSON) ? LAB ?? Phonak ? EM (Style/material/vent/color) ?? CROS-Tip ? IMPRESSION DATE ?? 08/26/10 ? SERIAL / INVOICE # ?? Invoice #: [id number] 03/16/16 ?? Serial #: [id number]? TUBE/LORE (length/dome/regulatory affairs consultant size) ?? Length 2 tube ?? Length 2 standard regulatory affairs consultant/ medium open phonak dome ?? OTHER / COMMENTS ? Assistive Listening Devices/Wireless Accessories ?? Device? Phonak iCom ? Serial #? [id number] ? Fit Date? 11/17/10 ? Warranty Exp.? 01/29/12 ? documented in this encounter Plan of Treatment Upcoming Encounters Date Type Department Care Team (Late st Contact Info) Description 08/05/2024 4:30 PM EDT Office Visit Dermatology at [facility] [address] [place] [address] Rich Ivory MD [facility] [address] [place] [address] documented as of this encounter Visit Diagnoses Diagnosis Sensorineural hearing loss, asymmetrical documented in this encounter Care Teams Toolroom Helper Relationship Specialty Start Date End Date Yarelis Sahikh MD [facility] [address] [place] [address] PCP - General 02/15/10 12/20/17 documented as of this encounter
--- OUTSIDE RECORDS SUMMARY | 2023-10-29 18:30 | XMS_ITS | Encounter Summary ---
Author Organization [facility] [place] [address] Care Team Providers Care Bedspread Cutter Hand Name Role Phone Yarelis Shaikh MD Primary Care Provider [phone] Encounter Details Date Type Department Care Team (Late st Contact Info) Description 05/02/2012 11:00 AM EST Office Visit Audiology at [address] [address] Amparo Ma, [facility] [place] [place] [address] Fitting and adjustment of hearing aid (Primary Dx) Social History Tobacco Use Types [...] Progress Notes * Amparo Graf, [place] - 05/02/2012 10:50 AM EST AUDIOLOGY Basilio Duff was seen today for a hearing aid check following a hearing re- evaluation. Please refer to the audiogram and associated note for details on otologic symptoms and hearing test results. Mr. Duff reported that the BICROS system is extremely helpful in most situations, but he finds difficulty understanding speech in the presence of background noise and in the car. He also requested an extra dry aid kit. The following actions were taken: 1. Both devices were cleaned and a listening check indicated that they were functioning appropriately. Simulated real ear measures were obtained and function of the directional microphones on the hearing aid was verified. 2. Mr. Duff was provided extra domes for that hearing aid. 3. The Phonak remote lisa was demonstrated in the clinic. Mr. Duff already has an iCom and will contact the clinic if he decides to purchase the remote lisa. HEARING AID(S): HEARING AID RIGHT LEFT STYLE BICROS Transmitter RITE MAKE/MODEL Phonak Phonak Audeo S Smart V CASING COLOR Mocha Taupe Same SERIAL NUMBER [id number] BATTERY SIZE 312 312 BATTERY CLUB PROGRAM/SETTINGS FITTING ALGORITHM N/A DSL-Adult VERIFICATION METHOD N/A REM PROGRAMS Soundflow DISABLED FEATURES OTHER COMMENTS VC enabled HEARING AID WARRANTY ORIGINAL FIT DATE 10/20/10 10/20/10 CURRENT STATUS Under signal maintainer helper repair and L&D coverage until 12/25/12 Under signal maintainer helper repair and L&D coverage until 12/25/13 EARMOLD (if BTE JOHNSON) LAB Phonak EM (Style/material/vent/color) CROS-Tip IMPRESSION DATE 08/26/10 INVOICE # Invoice #: [id number] Serial #: [id number] TUBE/LORE (length/dome/data warehouse administrator size) Length 2 tube Length 2 standard data warehouse administrator/ medium open phonak dome OTHER / COMMENTS Assistive Listening Devices/Wireless Accessories Device Phonak iCom Serial # [id number] Fit Date 11/17/10 Warranty Exp. 01/29/12 RECOMMENDATIONS Annual hearing evaluation and hearing aid check, sooner if concerns arise in the interim. Haleigh Vaca Clinical Dialysis Tech [place] [id number] ; documented in this encounter Plan of Treatment Upcoming Encounters Date Type Department Care Team (Late st Contact Info) Description 08/05/2024 4:30 PM EDT Office Visit Dermatology at [facility] [address] [place] [address] Rich Ivory MD [facility] [place] [address] documented as of this encounter Visit Diagnoses Diagnosis Fitting and adjustment of hearing aid- Primary documented in this encounter Care Teams Bedspread Cutter Hand Relationship Specialty Start Date End Date Yarelis Shaikh MD [facility] [address] [place] [address] PCP - General 02/15/10 12/20/17 documented as of this encounter
--- OUTSIDE RECORDS SUMMARY | 2023-10-29 18:30 | XMS_ITS | Encounter Summary ---
[place] [address] Care Team Providers Care Wash Tank Tender Name Role Phone Yarelis Shaikh MD Primary Care Provider [phone] Encounter Details Date Type Department Care Team (Late st Contact Info) Description 06/05/2013 External Results [place] [address] Jaky Eldridge AUD [facility] [place] [address] Social History Tobacco Use Types Packs/Day Years [...] Dermatology at [facility] [address] [place] [address] Rich Ivory MD [facility] [address] [place] [address] documented as of this encounter Procedures Procedure Name Priority Date/Time Associated Diagnosis Comments AUDIOLOGY SCAN Routine 06/03/2013 documented in this encounter Results * Scan Doc: Audiology (06/03/2013) Jaky Eldridge AUD MEDIA MGR SCAN E XT ORDR/RSLT documented in this encounter Visit Diagnoses Not on filedocumented in this encounter Care Teams Wash Tank Tender Relationship Specialty Start Date End Date Yarelis Shaikh MD CECILIO Byrne [address] [place] [address] PCP - General 02/15/10 12/20/17 documented as of this encounter
--- OUTSIDE RECORDS SUMMARY | 2023-10-29 18:30 | XMS_ITS | Encounter Summary ---
Author Organization [facility] [place] [place] [address] Care Team Providers Care Machine Welder Name Role Phone Yarelis Shaikh MD Primary Care Provider Reason for Visit * Reason Comments Foreign Body in Ear object in left ear Encounter Details Date Type Department Care Team (Late st Contact Info) Description 07/21/2014 11:30 AM EDT Office [place] [address] Miladis Del Cid APRN [facility] [place] [address] Foreign body in ear, left, initial encounter Discharge Disposition: Home Social History Tobacco Use [...] as of this encounter Progress Notes * Miladis Del Cid APRN - 07/21/2014 11:58 AM EDT Otolaryngology Same Day Note Date of Visit: 07/21/2014 Location of Visit: Otolaryngology Clinic, [facility] Chief Complaint: Basilio is a 68 year with a hx of a foreign object in his left ear x 1 day. Interval History: Basilio is a 68 year old with a part of his hearing aid in his left ear x 1 day. He is having some pain in the ear and is not hearing well since the dome was left in the canal. No otorrhea. Medications: see list Allergies: see list Physical Examination: General: Age-appropriate interactive behavior in no acute distress. Face: Symmetric without dysmorphic features. Ears: Auricles symmetric bilaterally without lesions noted. External auditory canal on the left hasa hearing aid dome present. This was removed with the use of microscope and alligator forceps. The EAC's are clear after the object was removed. On the left, tympanic membrane is clear. Middle ear iswell aerated. On the right tympanic membrane is clear. Middle ear is well aerated. Impression: Foreign body removed from the left EAC. Plan: RTC prn. Miladis PARMAR [facility] Otolaryngology-Head and Neck Surgery [place], [place] [address] documented in this encounter Plan of Treatment Upcoming Encounters Date Type Department Care Team (Late st Contact Info) Description 08/05/2024 4:30 PM EDT Office Visit Dermatology at [facility] [address] [place] [address] Rich Ivory MD [facility] [place] [address] documented as of this encounter Visit Diagnoses Diagnosis Foreign body in ear, left, initial encounter documented in this encounter Care Teams Machine Welder Relationship Specialty Start Date End Date Yarelis Shaikh MD [facility] [address] [place] [address] PCP - General 02/15/10 12/20/17 documented as of this encounter
--- OUTSIDE RECORDS SUMMARY | 2023-10-29 18:30 | XMS_ITS | Encounter Summary ---
Author Organization [facility] Address [facility] [place] [address] Care Team Providers Care Hospital Administrator Name Role Phone Yarelis Shaikh MD Primary Care Provider Reason for Visit * Auth/Cert Specialty Diagnoses / Procedures Referred By Connie t Referred To Contact Diagnoses screening Procedures PRO COLONOSCOPY, DIAGNOSTIC COLONOSCOPY, DIAGNOSTIC Referral ID Status Reason Start Date Expiration Date Visits Re quested Visits Authorized [id number] 1 1 Encounter Details Date Type Department Care Team (Latest Contact Info) Description 09/28/2017 9:28 AM EDT - 09/28/2017 11:22 AM EDT Hospital En[place] [phone] Francisco Garland MD [facility] [place] [address] Discharge Disposition: Home Social History Tobacco Use [...] encounter Discharge Instructions * Discharge Instructions* Qing Bush, OVIDIO - 09/28/2017 10:46 AM EDT Colonoscopy and [...] to be checked. Sunday-Sunday Same Day Endo [phone] Otherwise contact [phone] and ask to speak to the recruiting scheduler swine nutritionist Follow up care is a ontiveros part [...] 4:30 PM EDT Office Visit Dermatology at [address] [address] Rich Ivory MD [facility] DR ELVI [place] [address] documented as of this encounter Procedures Procedure [...] AM EDT 09/28/2017 1:[address] [facility] - 09/28/2017 1:39 PM EDT Specimen requisition ordered. ??Separate Pathology report to follow Resulting Agency Comment Spec In Lab Francisco Garland MD PATHOLOGY/CYTOLOGY O [facility] [place] [address] * Surgical Pathology Report (09/28/2017 10:25 AM EDT) Final Diagnosis [id number] ? Location: 4T; EA09; A The signing pathologist has (i) examined the relevant preparation(s) for the specimen(s) and (ii) rendered or confirmed the diagnosis(es). . ?Surgical Pathology DIAGNOSIS Cecum, ??polypectomy: - Tubular adenoma. CR-PX Electronically signed by: ??Samuel Lira MD Verified: ??10/02/2017 ?Pathologist Performed at: ??-[facility] Dept. of Pathology, [place], [place] CLINICAL INFORMATION Specimen Submitted: A - Cecum polyp Clinical History and Diagnosis: 71-year-old male screening colonoscopy SPECIMEN PROCESSING A - Labeled/Fixativ e: Cecum polyp, formalin. Quantity/Size: Single, 0.3 cm. Tissue Description: ??Soft, pink tissue . Sections/Proces sing: (T1) ??sns 10/02/2017 4:[address] [facility] GI Biopsy 09/28/2017 10:2 5 AM EDT 09/28/2017 10:25 AM EDT Francisco Garland MD PATHOLOGY/CYTOLOGY Kaylan MONTALVO Performing Organization Address City/[facility]/ZIP Co de Phone Number [facility] [place] [address] * COLONOSCOPY (09/28/2017 9:37 AM EDT) COLONOSCOPY [facility] Endoscopy Procedure Date: 09/28/2017 9:37 AM ? Patient Name: Basilio Duff ? Date of : 1945 ? Age: 71 ? Order #: [id number] ? Instrument Name: [id number] ? Procedure: ? Colonoscopy Indications: ? Screening for colorectal malignant ? neoplasm Providers: ? Francisco Garland MD, Jose De Jesus Bailey, ? Janell NOLAN MD: ?Yarelis Shaikh MD Medicines: ? Midazolam [...] preparation was evaluated using ? the BBPS (Fitzpatrick Bowel Preparation ? Scale) with scores of: [...] 09/28/2017 9:37 AM EDT Yarelis A Neel ADVEY GENERAL SURGICAL ORD ERABLES PROVATION documented in this encounter Visit Diagnoses Not on filedocumented in this encounter Administered Medications Inactive Administered Medications - up to 3 most recent administrations Medication Order MAR Action Action Date Dose Rate Site lactated Ringers infusion 100 mL/hr, Intravenous, CONTINUOUS, Starting on Sun09/28/17 at 1000, Until Sun09/28/17 at 1107, Endoscopy (Day of Procedure) New Bag 09/28/2017 10:02 AM EDT 100 mL/hr 100 mL/hr documented [...] RN) documented in this encounter Care Teams Hospital Administrator Relationship Specialty Start Date End Date Yarelis Shaikh MD [facility] [address] [place] [address] PCP - General 02/15/10 12/20/17 documented as of this encounter
--- OUTSIDE RECORDS SUMMARY | 2023-10-29 18:30 | XMS_ITS | Encounter Summary ---
Author Organization [facility] [place] [address] Care Team Providers Care Marble Setter Name Role Phone Yarelis Shaikh MD Primary Care Provider [phone] Encounter Details Date Type Department Care Team (Late st Contact Info) Description 03/14/2016 Notes Only Audiology at [address] [phone] Ro Joseph Social History Tobacco Use Types Packs/Day Years [...] encounter Progress Notes * Ro Joseph - 03/14/2016 2:31 PM EST Hearing aid check. Reason: Right Hearing aid dropped off to be checked,CROS tip cracked. Action taken: Called [employer] and they have scan on file. Hearing aid on shelf. Plan: Tip sent for remake and will call pt when back. HEARING AID(S): ?? HEARING AID ?? RIGHT ?? LEFT ?? STYLE ?? BICROS Transmitter ?? RITE ?? MAKE/MODEL ?? Phonak ?? Phonak Audeo S Smart V ?? CASING COLOR ?? Mocha Taupe ?? Same ?? SERIAL NUMBER ?? [id number] ?? [id number] ?? BATTERY SIZE ?? 312 ?? 312 ?? BATTERY CLUB ? PROGRAM/SETTINGS ? FITTING ALGORITHM ?? N/A ?? DSL-Adult ?? VERIFICATION METHOD ?? N/A ?? REM ?? PROGRAMS ? Soundflow ?? DISABLED FEATURES ? OTHER COMMENTS ?? VC enabled ? HEARING AID WARRANTY ? ORIGINAL FIT DATE ?? 10/20/10 ?? 10/20/10 ?? CURRENT STATUS ?? Under machining supervisor repair and L&D coverage until 12/25/12 ?? Under machining supervisor repair and L&D coverage until 12/25/13 ?? EARMOLD (if BTE JOHNSON) ? LAB ?? Phonak ? EM (Style/material/vent/color) ?? CROS-Tip ? IMPRESSION DATE ?? 08/26/10 ? INVOICE # ?? Invoice #: [id number] ?? Serial #: [id number] ? TUBE/LORE (length/dome/compensation analyst size) ?? Length 2 tube ?? Length 2 standard compensation analyst/ medium open phonak dome ?? OTHER / COMMENTS ? Assistive Listening Devices/Wireless Accessories ?? Device? Phonak iCom ? Serial #? [id number] ? Fit Date? 11/17/10 ? Warranty Exp.? 01/29/12 ? documented in this encounter Plan of Treatment Upcoming Encounters Date Type Department Care Team (Late st Contact Info) Description 08/05/2024 4:30 PM EDT Office Visit Dermatology at [facility] [address] [place] [address] Rich Ivory MD [facility] [place] [address] documented as of this encounter Visit Diagnoses Not on filedocumented in this encounter Care Teams Marble Setter Relationship Specialty Start Date End Date Yarelis Shaikh MD [facility] D [address] [place], [place] [address] PCP - General 02/15/10 12/20/17 documented as of this encounter
--- OUTSIDE RECORDS SUMMARY | 2023-10-29 18:30 | XMS_ITS | Encounter Summary ---
[place] [address] Care Team Providers Care Human Resources Supervisor Name Role Phone Yarelis Shaikh MD Primary Care Provider [phone] Encounter Details Date Type Department Care Team (Late st Contact Info) Description 07/16/2014 External Results [place] [address] Jaky Eldridge AUD [facility] [place] [address] Social History Tobacco Use Types Packs/Day Years [...] Visit Dermatology at [facility] [address] [place] [phone] Rich Ivory MD [facility] [place] [address] documented as of this encounter Procedures Procedure Name Priority Date/Time Associated Diagnosis Comments AUDIOLOGY SCAN Routine 07/15/2014 documented in this encounter Results * Scan Doc: Audiology (07/15/2014) Jaky Eldridge AUD MEDIA MGR SCAN E XT ORDR/RSLT documented in this encounter Visit Diagnoses Not on filedocumented in this encounter Care Teams Human Resources Supervisor Relationship Specialty Start Date End Date Yarelis Shaikh MD CECILIO Byrne [address] [place] [address] PCP - General 02/15/10 12/20/17 documented as of this encounter
--- OUTSIDE RECORDS SUMMARY | 2023-10-29 18:30 | XMS_ITS | Encounter Summary ---
[place] [address] Care Team Providers Care Funeral Counselor Name Role Phone Yarelis Shaikh MD Primary Care Provider Encounter Details Date Type Department Care Team (Latest Contact Info) Description 08/18/2016 11:00 AM EDT Office Visit Audiology at [address] [address] Dominga Patrick AUD [facility] [place] [address] Sensorineural hearing loss, asymmetrical Social History Tobacco [...] as of this encounter Progress Notes * Domniga Patrick AUD - 08/18/2016 11:00 AM EDT AUDIOLOGY SECTION Basilio Duff, 70 y.o., was seen for audiologic evaluation and hearing aid check. Dr. Ma is his managing hook and eye attacher. Concerns presented: ??? No significant change in hearing reported. 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 ??? No problems reported with the hearing aids. They are now 6 years old. Actions taken: ??? Audiologic evaluation was conducted today by Dr. Kendrick. Please refer to the scanned audiogramin the medical record for findings. Hearing was stable bilaterally. ??? The instruments were cleaned and assessed via listening check. Dmic down on the left and corrosion noted under both lisa covers. Agreed to 250.00 tpm-[id number] repair fee on th left. ??? I could not test the dmics on the right CROS. Agreed to send them both in for repair. We would like Dae to do a diagnostic check on the right CROS. If there is a lisa down on the CROS as well, he agrees to pay an additional 250.00 fee. If the mics are ok, we would like Dae to just send theright aid back to us. ??? We also discussed new BICROS technology. We will hold off on upgrading technology at this time. Plan: Once back from repair, please download most recent session and verify via SREM and listening check for CROS. He would like the aids mailed back to him in the mail if possible. HEARING AID(S): ?? HEARING AID ?? RIGHT ?? LEFT ?? STYLE ?? BICROS Transmitter ?? RITE ?? MAKE/MODEL ?? Phonak ?? Dae Audjustino S Smart V ?? CASING COLOR ?? Mocha Taupe ?? Same ?? SERIAL NUMBER ?? [id number] ?? [id number] ?? BATTERY SIZE ?? 312 ?? 312 ?? BATTERY CLUB ? PROGRAM/SETTINGS ? FITTING ALGORITHM ?? N/A ?? DSL-Adult ?? VERIFICATION METHOD ?? N/A ?? REM ?? PROGRAMS ? Soundflow ?? DISABLED FEATURES ? OTHER COMMENTS ?? VC enabled ? HEARING AID WARRANTY ? ORIGINAL FIT DATE ?? 10/20/10 ?? 10/20/10 ?? CURRENT STATUS ?? Under smoke and flame specialist repair and L&D coverage until 12/25/12 ?? Under smoke and flame specialist repair and L&D coverage until 12/25/13 ?? EARMOLD (if BTE JOHNSON) ? LAB ?? Phonak ? EM (Style/material/vent/color) ?? CROS-Tip ? IMPRESSION DATE ?? 08/26/10 ? SERIAL / INVOICE # ?? Invoice #: [id number] 03/16/16 ?? Serial #: [id number]? TUBE/LORE (length/dome/welder apprentice size) ?? Length 2 tube ?? Length 2 standard welder apprentice/ medium open phonak dome ?? OTHER / COMMENTS ? Assistive Listening Devices/Wireless Accessories ?? Device? Phonak iCom ? Serial #? [id number] ? Fit Date? 11/17/10 ? Warranty Exp.? 01/29/12 ? documented in this encounter Plan of Treatment Upcoming Encounters Date Type Department Care Team (Late st Contact Info) Description 08/05/2024 4:30 PM EDT Office Visit Dermatology at [facility] [address] [place] [address] Rich Ivory MD [facility] DR ELVI [place] [address] documented as of this encounter Visit Diagnoses Diagnosis Sensorineural hearing loss, asymmetrical documented in this encounter Care Teams Funeral Counselor Relationship Specialty Start Date End Date Yarelis Shaikh MD CECILIO D [address] [place] [address] PCP - General 02/15/10 12/20/17 documented as of this encounter
--- OUTSIDE RECORDS SUMMARY | 2023-10-29 18:30 | XMS_ITS | Encounter Summary ---
[place] [address] Care Team Providers Care Infrastructure Analyst Name Role Phone Yarelis Shaikh MD Primary Care Provider Encounter Details Date Type Department Care Team (Late st Contact Info) Description 04/14/2014 Telephone [place] [address] Tristen Pratt Social History Tobacco Use Types Packs/Day Years [...] encounter Miscellaneous Notes * Telephone Encounter - Tristen Pratt - 04/14/2014 1:38 PM EST Sent May 2014 reminder card out for Amparo Graf Central Sterile Technician. documented in this encounter Plan of Treatment Upcoming Encounters Date Type Department Care Team (Late st Contact Info) Description 08/05/2024 4:30 PM EDT Office Visit Dermatology at [facility] [address] [place] [address] Rich Ivory MD [facility] [place] [address] documented as of this encounter Visit Diagnoses Not on filedocumented in this encounter Care Teams Infrastructure Analyst Relationship Specialty Start Date End Date Yarelis Shaikh MD [facility] D [address] [place] [address] PCP - General 02/15/10 12/20/17 documented as of this encounter
--- OUTSIDE RECORDS SUMMARY | 2023-10-29 18:30 | XMS_ITS | Encounter Summary ---
[place] [address] Care Team Providers Care Packing House Laborer Name Role Phone Yarelis Shiakh MD Primary Care Provider [phone] Encounter Details Date Type Department Care Team (Late st Contact Info) Description 06/28/2015 External Results [place] [phone] Dominga Patrick AUD [facility] [place] [address] Social History Tobacco Use Types Packs/Day Years [...] 4:30 PM EDT Office Visit Dermatology at [address] [place] [address] Rich Ivory MD [facility] [place] [address] documented as of this encounter Procedures Procedure Name Priority Date/Time Associated Diagnosis Comments AUDIOLOGY SCAN Routine 06/25/2015 documented in this encounter Results * Scan Doc: Audiology (06/25/2015) Dominga Patrick [employer]dPlat MGR SCAN EXT O RDR/RSLT documented in this encounter Visit Diagnoses Not on filedocumented in this encounter Care Teams Packing House Laborer Relationship Specialty Start Date End Date Yarelis Shaikh MD CECILIO [facility] [address] [place] [address] PCP - General 02/15/10 12/20/17 documented as of this encounter
--- OUTSIDE RECORDS SUMMARY | 2023-10-29 18:30 | XMS_ITS | Encounter Summary ---
Author Organization [facility] [place] [address] Care Team Providers Care Automotive Collision Estimator Name Role Phone Yarelis Shaikh MD Primary Care Provider [phone] Encounter Details Date Type Department Care Team (Late st Contact Info) Description 06/25/2015 10:00 AM EDT Office Visit Audiology at [address] [address] Amparo Ma AUD [facility] [place] [address] Fitting and adjustment of hearing aid Social [...] as of this encounter Progress Notes * mAparo Ma AUD - 06/25/2015 9:28 AM EDT AUDIOLOGY Basilio Duff was seen today for a hearing aid check following a hearing re- evaluation. Please refer to the audiogram and associated note for details on otologic symptoms and hearing test results. Mr. Duff reported that the hearing instruments are functioning well. Understanding speech in the presence of background noise can be challenging. The following actions were taken: ?? Both devices were cleaned and a listening check indicated that they were functioning appropriately. ?? Hearing aid programming was adjusted (gain was slightly increased) so that the aided responses approximated prescriptive targets for speech without exceeding MPO targets. Mr. Duff was subjectively satisfied with the sound quality of the aid, and loudness discomfort was denied. Function of the right transmitter was verified. Simulated real ear measures were obtained for the left hearing aid RECOMMENDATIONS Annual hearing evaluation and hearing aid check, sooner if concerns arise in the interim. Helene Lopez Clinical [place] [address] ; HEARING AID(S): ?? HEARING AID ?? RIGHT ?? LEFT ?? STYLE ?? BICROS Transmitter ?? RITE ?? MAKE/MODEL ?? Phonak ?? Phonak Audeo S Smart V ?? CASING COLOR ?? Mocha Taupe ?? Same ?? SERIAL NUMBER ?? [id number] ?? [id number] ?? BATTERY SIZE ?? 312 ?? 312 ?? BATTERY CLUB ? PROGRAM/SETTINGS ? FITTING ALGORITHM ?? N/A ?? DSL-Adult ?? VERIFICATION METHOD ?? N/A ?? REM ?? PROGRAMS ? Soundflow ?? DISABLED FEATURES ? OTHER COMMENTS ?? VC enabled ? HEARING AID WARRANTY ? ORIGINAL FIT DATE ?? 10/20/10 ?? 10/20/10 ?? CURRENT STATUS ?? Under administrative support assistant repair and L&D coverage until 12/25/12 ?? Under administrative support assistant repair and L&D coverage until 12/25/13 ?? EARMOLD (if BTE JOHNSON) ? LAB ?? Phonak ? EM (Style/material/vent/color) ?? CROS-Tip ? IMPRESSION DATE ?? 08/26/10 ? INVOICE # ?? Invoice #: [id number] ?? Serial #: [id number] ? TUBE/LORE (length/dome/gray tender size) ?? Length 2 tube ?? Length 2 standard gray tender/ medium open phonak dome ?? OTHER / COMMENTS ? Assistive Listening Devices/Wireless Accessories ?? Device? Phonak iCom ? Serial #? [id number] ? Fit Date? 11/17/10 ? Warranty Exp.? 01/29/12 ? documented in this encounter Plan of Treatment Upcoming Encounters Date Type Department Care Team (Late st Contact Info) Description 08/05/2024 4:30 PM EDT Office Visit Dermatology at [facility] [address] [place] [address] Rich Ivory MD [facility] [place] [address] documented as of this encounter Visit Diagnoses Diagnosis Fitting and adjustment of hearing aid documented in this encounter Care Teams Automotive Collision Estimator Relationship Specialty Start Date End Date Yarelis Shaikh MD [facility] D [address] [place] [address] PCP - General 02/15/10 12/20/17 documented as of this encounter
--- OUTSIDE RECORDS SUMMARY | 2023-10-29 18:30 | XMS_ITS | Encounter Summary ---
[place] [address] Care Team Providers Care Fiberglass Boat Parts Finisher Name Role Phone Yarelis Shaikh MD Primary Care Provider Encounter Details Date Type Department Care Team (Late st Contact Info) Description 08/16/2017 10:15 AM EDT Office Visit Audiology at [address] [address] Jossie Rich AUD [facility] [place] [address] Asymmetric SNHL (sensorineural hearing loss); Tinnitus, bilateral [...] as of this encounter Progress Notes * Jossie Rich, [place] - 08/16/2017 10:15 AM EDT AUDIOLOGY SECTION AUDIOLOGIC EVALUATION [place], [place] Basilio Duff was seen on 08/16/2017 for an audiologic evaluation in conjunction with his appointment with his managing pourer bull ladle, Lili Lopez Please refer to the scanned audiogram listed under ???Chart Review?? and Procedures for findings, impressions and recommendations. Lili Wakefield Clinical Stationary Boiler Fireman [facility] [place] [address] documented in this encounter Plan of Treatment Upcoming Encounters Date Type Department Care Team (Late st Contact Info) Description 08/05/2024 4:30 PM EDT Office Visit Dermatology at [place] [address] [place] [address] Rich Ivory MD [facility] [place] [address] documented as of this encounter Procedures Procedure Name Priority Date/Time Associated Diagnosis Comments COMPREHENSIVE HEARING TEST Routine 08/16/2017 10:14 AM EDT documented in this encounter Results * Comprehensive hearing test (08/16/2017 10:14 AM EDT) 08/16/2017 10:1 4 AM EDT Narrative AUDBASE COMP - 08/16/2017 10:14 AM EDT Follow up as scheduled with Dr. Ma Procedure Note Unknown - 08/16/2017 Follow up as scheduled with Dr. Ma Unknown AUDIOLOGY SERVICES O RDERABLES [facility]UD[facility] documented in this encounter Visit Diagnoses Diagnosis Asymmetric SNHL (sensorineural hearing loss) Sensorineural hearing loss, asymmetrical Tinnitus, bilateral Unspecified tinnitus documented in this encounter Care Teams Fiberglass Boat Parts Finisher Relationship Specialty Start Date End Date Yarelis Shaikh MD [facility] D [address] [place] [address] PCP - General 02/15/10 12/20/17 documented as of this encounter
--- OUTSIDE RECORDS SUMMARY | 2023-10-29 18:30 | XMS_ITS | Encounter Summary ---
[place] [address] Care Team Providers Care Director Digital Catalogue Name Role Phone Yarelis Shaikh MD Primary Care Provider [phone] Encounter Details Date Type Department Care Team (Late st Contact Info) Description 06/09/2016 Telephone [place] [address] Andria Dukes Social History Tobacco Use Types Packs/Day Years [...] encounter Miscellaneous Notes * Telephone Encounter - Andria Dukes - 06/09/2016 8:43 AM EDT Called and left a message about the change and asked for call back to [facility] documented in this encounter Plan of Treatment Upcoming Encounters Date Type Department Care Team (Late st Contact Info) Description 08/05/2024 4:30 PM EDT Office Visit Dermatology at [address] [place] [address] Rich Ivory MD [facility] [place] [address] documented as of this encounter Visit Diagnoses Not on filedocumented in this encounter Care Teams Director Digital Catalogue Relationship Specialty Start Date End Date Yarelis Shaikh MD [facility] D [address] [place] [address] PCP - General 02/15/10 12/20/17 documented as of this encounter
--- OUTSIDE RECORDS SUMMARY | 2023-10-29 18:30 | XMS_ITS | Encounter Summary ---
Author Organization [facility] [place] [address] Care Team Providers Care Guidance Adviser Name Role Phone Yarelis Shaikh MD Primary Care Provider Reason for Visit * Reason Comments Skin Check Encounter Details Date Type Department Care Team (Late st Contact Info) Description 11/20/2011 9:30 AM EDT Follow-Up Dermatology [place] [id number] Rich Ivory MD [facility] [place] [address] Psoriasis (Primary Dx); Blue nevus Discharge Disposition: Home Social History Tobacco Use [...] Progress Notes * Rich Ivory MD - 11/20/2011 9:48 AM EDT Basilio Duff [id number] 11/20/2011 Roney Ivory MD ([id number]) Chief Problem: 1. Skin Cancer and Pigmented Lesion Examination 2. History of Actinic Keratoses 3. History of Scalp Psoriasis 3. History of rosacea History: 65 year old man. Established patient to me. Here for skin cancer and pigmented lesion exam. No significant changes in health or medications since last visit. Current outpatient prescriptions ordered prior to encounter Medication Sig Dispense Refill ??? fluocinolone-shower cap [...] and soles were also examined. Specific findings: -blue macule on the left dorsal foot -Scattered well-demarcated, erythematous plaques with silvery scale distributed:on the scalp and right axilla Diagnosis/Assessment: 1. Blue Nevus 2. Inverse Psoriasis Treatment Plan: Discussion - Spent over half of this visit discussing pathophysiology and the diagnosis, and counseling this patient on treatment options, expectations and follow-up plan. - Specifically discussed: -continue with Protopic to the axilla and groin. Encouraged to use Desoto Smooth to the scalp Follow up: 1.RTC 1 yr Jaki Ivory MD Section of Dermatology documented in this encounter Plan of Treatment Upcoming Encounters Date Type Department Care Team (Late st Contact Info) Description 08/05/2024 4:30 PM EDT Office Visit Dermatology at [facility] [address] [place] [address] Rich Ivory MD [facility] [place] [address] documented as of this encounter Visit Diagnoses Diagnosis Psoriasis- Primary Other psoriasis Blue nevus Benign neoplasm of skin, site unspecified documented in this encounter Care Teams Guidance Adviser Relationship Specialty Start Date End Date Yarelis Shaikh MD [facility] Chavez [address] [place] [address] PCP - General 02/15/10 12/20/17 documented as of this encounter
--- OUTSIDE RECORDS SUMMARY | 2023-10-29 18:30 | XMS_ITS | Encounter Summary ---
[place] [address] Care Team Providers Care Utility Bagger Name Role Phone Yarelis Shaikh MD Primary Care Provider Encounter Details Date Type Department Care Team (Late st Contact Info) Description 07/15/2014 2:00 PM EDT Follow-Up Audiology at [address] [address] Jaky Eldridge, [facility] [place] [address] Amparo Ma, [facility] [place] [address] Sensorineural hearing loss, asymmetrical Discharge Disposition: Home Social History Tobacco Use [...] as of this encounter Progress Notes * Jaky Eldridge, - 07/15/2014 3:34 PM EDT AUDIOLOGY SECTION Basilio Duff, age 68 years, was seen on 07/15/2014 for an audiologic evaluation in conjunction with Helene Vaca. Please refer to the scanned audiogram in the electronic medical record for findings, impressions and recommendations. Roney Eldridge MS, [facility] [address] [place] [address] [phone] (fax) documented in this encounter Plan of Treatment Upcoming Encounters Date Type Department Care Team (Late st Contact Info) Description 08/05/2024 4:30 PM EDT Office Visit Dermatology at [facility] [address] [place] [address] Rich Ivory MD [facility] [place] [address] documented as of this encounter Visit Diagnoses Diagnosis Sensorineural hearing loss, asymmetrical documented in this encounter Care Teams Utility Bagger Relationship Specialty Start Date End Date Yarelis Shaikh MD [facility] Chavez [address] [place] [address] PCP - General 02/15/10 12/20/17 documented as of this encounter
--- OUTSIDE RECORDS SUMMARY | 2023-10-29 18:30 | XMS_ITS | Encounter Summary ---
Author Organization [facility] [place] [address] Care Team Providers Care Farm Technician Name Role Phone Yarelis Shaikh MD Primary Care Provider Encounter Details Date Type Department Care Team (Late st Contact Info) Description 04/26/2015 Orders Only [place] [address] Alexandro Foss MD [facility] [place] [address] Social History Tobacco Use Types Packs/Day Years [...] PM EDT Office Visit Dermatology at [facility] [address] [place] [address] Rich Ivory MD [facility] [address] [place] [address] documented as of this encounter Visit Diagnoses Not on filedocumented in this encounter Care Teams Farm Technician Relationship Specialty Start Date End Date Yarelis Shaikh MD [facility] [address] [place] [address] PCP - General 02/15/10 12/20/17 documented as of this encounter
--- OUTSIDE RECORDS SUMMARY | 2023-10-29 18:30 | XMS_ITS | Encounter Summary ---
[place] [address] Care Team Providers Care Polygraph Examiner Name Role Phone Yarelis Shaikh MD Primary Care Provider [phone] Reason for Referral * Diagnostic Test (Routine) - Closed Specialty Diagnoses / Procedures Referred By Connie camp Referred To Contact Radiology Diagnoses Right acoustic neuroma Cerebral meningioma Procedures MRI Brain With/WO Contrast (GENERIC) Carin Dsouza APRN [facility] [place] [address] [place] [address] Referral ID Status Reason Start Date Expiration Date V isits Requested Visits Authorized [id number] Closed Specialty Service Requested 06/17/2015 08/15/2015 1 1 Encounter Details Date Type Department Care Team (Late st Contact Info) Description 04/23/2015 [place] [address] Carin Dsouza APRN [facility] [place] [address] Right acoustic neuroma; Cerebral meningioma Social History Tobacco Use Types Packs/Day Years [...] 4:30 PM EDT Office Visit Dermatology at [facility] [address] [place] [address] Rich Ivory MD [facility] DR ELVI KH[place] [address] documented as of this encounter Results * MRI Brain With/WO [...] Cerebral meningioma Benign neoplasm of cerebral meninges Right acoustic neuroma Benign neoplasm of cranial nerves Cerebral meningioma Benign neoplasm of cerebral meninges documented in this encounter Care Teams Polygraph Examiner Relationship Specialty Start Date End Date Yarelis Shaikh MD [facility] [address] [place] [address] PCP - General 02/15/10 12/20/17 documented as of this encounter
--- OUTSIDE RECORDS SUMMARY | 2023-10-29 18:30 | XMS_ITS | Encounter Summary ---
Author Organization [facility] Address [facility] [place] [address] Care Team Providers Care Oiler And Greaser Name Role Phone Yarelis Shaikh MD Primary Care Provider [phone] Reason for Visit * Reason Comments Skin Check Encounter Details Date Type Department Care Team (Late st Contact Info) Description 11/17/2010 1:00 PM EDT [place] [address] Rich Ivory MD [facility] [place] [address] SK (seborrheic keratosis) (Primary Dx) Discharge Disposition: Home Social History [...] Progress Notes * Rich Ivory MD - 11/17/2010 1:23 PM EDT Basilio Duff [id number] Roney Ivory MD ([id number]) Chief Problem: 1. Skin Cancer and Pigmented Lesion Examination 2. History of Actinic Keratoses 3. History of Scalp Psoriasis 3. History of rosacea History: 64 year old man. Established patient to [place]. Here for skin cancer and pigmented lesion exam. No significant changes in health or medications since last visit. Medications: reviewed, no changes All: reviewed Family History: NO melanoma, Non Melanoma Skin CA, atopy, connective tissue, psoriasis Social/Occupational History: Review of Systems: Feels well, no fatigue, no weight loss, no other skin concerns AMBULATORY MEDICATIONS: DRUG DOSE/ROUTE FREQUENCY [place]-Smoothe/FS Scalp Oil 0.01 % Oil 1 Appl(s) / Topical QHS Protopic 0.1 % Ointment 1 Appl(s) / Topical Twice daily Examination: Patient was alert, well-appearing and in no noticeable distress. A skin examination was performed. This includes the head, neck, face and scalp including behind the ears. The chest, abdomen, back, and axillae, as well as the arms, hands, palms, fingers. Legs, feet, toes and soles were also examined. A focal skin exam was performed, including the scalp, head, face, neck, including behind the ears. Specific findings: Scattered waxy papules Assessment/Diagnosis: 1. Benign exam today 2. Non-inflamed SKs Follow-up: skin cancer exam one year TONNY documented in this encounter Plan of Treatment Upcoming Encounters Date Type Department Care Team (Late st Contact Info) Description 08/05/2024 4:30 PM EDT Office Visit Dermatology at [address] [place] [address] Rich Ivory MD [facility] DR [address] [place] [address] documented as of this encounter Visit Diagnoses Diagnosis SK (seborrheic keratosis)- Primary Other seborrheic keratosis documented in this encounter Care Teams Oiler And Greaser Relationship Specialty Start Date End Date Yarelis Shaikh MD [facility] Chavez [address] [place] [address] PCP - General 02/15/10 12/20/17 documented as of this encounter
--- OUTSIDE RECORDS SUMMARY | 2023-10-29 18:30 | XMS_ITS | Encounter Summary ---
[place] [address] Care Team Providers Care Computer Security Coordinator Name Role Phone Yarelis Shaikh MD Primary Care Provider Reason for Visit * Reason Comments Ear Problem rt aear no hearing Encounter Details Date Type Department Care Team (Late st Contact Info) Description 09/05/2010 3:30 PM EDT Office [place] [address] Gagan Martinez MD [facility] [place] [address] Acoustic neuroma (Primary Dx); SNHL (sensory-neural hearing loss), asymmetrical Discharge Disposition: Home Social History Tobacco [...] Sign Reading Time Taken Comments Blood Pressure 120/80 09/05/2010 4:29 PM EDT Pulse - - Temperature - - Respiratory Rate - - Oxygen Saturation - - Inhaled Oxygen Concentration - - Weight 83.9 kg (185 lb) 09/05/2010 4:29 PM EDT Height 177.8 cm (5' 10) 09/05/2010 4:29 PM EDT Body Mass Index 26.54 09/05/2010 4:29 PM EDT documented in this encounter Progress Notes * Gagan Martinez MD - 09/05/2010 6:39 PM EDT Subjective: Patient ID: Basilio Duff is a 64 y.o. male. 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 Was treated with stereotactic radiation at [facility] for small tumor with no growth and loss of remaining functional hearing AD overthe next 6 yrs. Two episodes of vertigo in past. No balance problems now. Loss of vision in right eye 6 mo ago. No headaches, numbness/tingling, weakness or spasms of the extremities or face, or diplopia. He is now interested in rehab options for his asymmetric HL. He has noted more problems in thelast 2 - 3 yrs. Review of Systems All other systems reviewed and are negative. Objective: Physical Exam Constitutional: He is oriented to person, place, and time. He appears well- developed and well-nourished. HENT: Head: Normocephalic and atraumatic. Head is without abrasion and without contusion. Hair is normal.No trismus in the jaw. Right Ear: Tympanic membrane, external ear and ear canal normal. No drainage or swelling. Tympanic membrane is not perforated, not erythematous, not retracted and not bulging. Tympanic membrane mobility is normal. No middle ear effusion. Left Ear: Tympanic membrane, external ear and ear canal normal. No drainage or swelling. Tympanic membrane is not perforated, not erythematous, not retracted and not bulging. Tympanic membrane mobility is normal. No middle ear effusion. Nose: Septal deviation present. No mucosal edema, rhinorrhea, nasal deformity or nasal septal hematoma. No epistaxis. Mouth/Throat: Uvula is midline, oropharynx is clear and moist and mucous membranes are normal. Mucous membranes are not pale and not dry. No oral lesions. Normal dentition. No uvula swelling. No oropharyngeal exudate, posterior oropharyngeal edema, posterior oropharyngeal erythema or tonsillar abscesses. Eyes: Conjunctivae and EOM are normal. Pupils are equal, round, and reactive to light. Right eye exhibits no chemosis and no discharge. Left eye exhibits no chemosis and no discharge. Right conjunctiva is not injected. Left conjunctiva is not injected. Right eye exhibits normal extraocular motion and no nystagmus. Left eye exhibits normal extraocular motion and no nystagmus. Neck: Normal range of motion and phonation normal. Neck supple. No tracheal deviation, no edema andno erythema present. No mass present. Pulmonary/Chest: No stridor. Lymphadenopathy: He has no cervical adenopathy. Neurological: He is alert and oriented to person, place, and time. No cranial nerve deficit. He displays a negative Romberg sign. Coordination and gait normal. Ocular Exam: No spontaneous or gaze evoked nystagmus, EOMI with smooth pursuit Eyes Closed Rhomberg - stable Tandem Rhomberg - stable for 10 - 20 sec Tandem Gait - able to walk 5 ft with pivot and return with minimal or no errors Fukuda Test - stable with slight drift Skin: Skin is warm, dry and intact. Psychiatric: He has a normal mood and affect. His speech is normal and behavior is normal. Judgmentand thought content normal. The following audiological studies were reviewed by me: audio - mild left SNHl in high freq, right severe SNHL with poor SDS The following imaging studies were reviewed by me: small right acoustic neuroma Assessment and Plan: Stable right acoustic neuroma after radiation treatment with right SNHL. I would recommend a followup MRI in 5 yrs. As for his asymmetric hearing loss, I believe he is an excellent candidate for a BiCROS hearing aid system. documented in this encounter Plan of Treatment Upcoming Encounters Date Type Department Care Team (Late st Contact Info) Description 08/05/2024 4:30 PM EDT Office Visit Dermatology at [facility] [address] [place] [address] Rich Ivory MD [facility] [place] [address] documented as of this encounter Visit Diagnoses Diagnosis Acoustic neuroma- Primary Benign neoplasm of cranial nerves SNHL (sensory-neural hearing loss), asymmetrical Sensorineural hearing loss, asymmetrical documented in this encounter Care Teams Computer Security Coordinator Relationship Specialty Start Date End Date Yarelis Shaikh MD [facility] D [address] [place] [address] PCP - General 02/15/10 12/20/17 documented as of this encounter
--- OUTSIDE RECORDS SUMMARY | 2023-10-29 18:30 | XMS_ITS | Encounter Summary ---
Author Organization [facility] [place] [address] Care Team Providers Care Circulation Supervisor Name Role Phone Yarelis Shaikh MD Primary Care Provider Encounter Details Date Type Department Care Team (Latest Contact Info) Description 08/16/2017 11:15 AM EDT Office Visit Audiology at [address] [address] Amparo Ma AUD [facility] [place] [address] Sensorineural hearing loss, asymmetrical; Fitting and adjustment of hearing aid Social [...] Progress Notes * Amparo Ma AUD - 08/16/2017 11:15 AM EDT AUDIOLOGY Basilio Duff was seen today for a hearing aid check following a hearing re- evaluation. Please refer to the audiogram and associated note for details on otologic symptoms and hearing test results. Mr. Duff reported that the hearing instruments are working well. He does not wear them all the time;he often leaves them out when he is around the house. He denied any particular reason for leaving them out. Also, understanding speech in the presence of background noise is very challenging. He often turns the volume of the hearing devices down all the way in these situations. The following actions were taken: ?? Both devices were cleaned and a listening check indicated that they were functioning appropriately. ?? Hearing aid programming was adjusted (slight gain increase in the mid- frequencies) so that the aided responses approximated prescriptive targets for speech without exceeding MPO targets. Mr. Duffwas subjectively satisfied with the sound quality of the aid, and loudness discomfort was denied. Function of the CROS transmitter was verified. Simulated real ear measures were obtained and function of the directional microphones was verified. Three extra domes were provided for the hearing instrument Mr. Duff was encouraged to use the hearing instruments more consistently, especially since his reported that it is frustrating when he cannot hear/ understand her. The benefits of new hearing aid technology for speech understanding in background noise was brieflydiscussed. Mr. Duff was fit with a loaner Phonak BICROS system of newer technology to try for the next few weeks. Left hearing aid programming was adjusted so that the aided responses approximated targets for speech without exceeding MPO targets. Mr. Duff was subjectively satisfied with the soundquality of the aid, and loudness discomfort was denied.The Loaner Instrument Sign Out Form was completed and Mr. Duff understood that he is responsible for the cost of the hearing aid if it were to be lost or damaged beyond repair. RECOMMENDATIONS Mr. Duff will contact me with updates on how the loaner BICROS system is working. He will let me know if he would like to pursue new hearing devices. Otherwise, an annual hearing test and hearing aid check is recommended. Helene Lopez [place] [address] ; HEARING AID(S): ?? HEARING AID ?? RIGHT ?? LEFT ?? STYLE ?? BICROS Transmitter ?? RITE ?? MAKE/MODEL ?? Phonak ?? Phonak Audeo S Smart V ?? CASING COLOR ?? Mocha Taupe ?? Same ?? SERIAL NUMBER ?? [id number] ?? [id number] ?? BATTERY SIZE ?? 312 ?? 312 [...] SERIAL / INVOICE # ?? Invoice #: [id number] 03/16/16 ?? Serial #: [id number]? TUBE/LORE (length/dome/rn night size) ?? Length 2 tube ?? Length 2 standard rn night/ medium open phonak dome ?? OTHER / COMMENTS ? Assistive Listening Devices/Wireless Accessories ?? Device? Phonak iCom ? Serial #? [id number] ? Fit Date? 11/17/10 ? Warranty Exp.? 01/29/12 ? documented in this encounter Plan of Treatment Upcoming Encounters Date Type Department Care Team (Late st Contact Info) Description 08/05/2024 4:30 PM EDT Office Visit Dermatology at [facility] [address] [place] [address] Rich Ivory MD [facility] DR [address] [address] documented as of this encounter Visit Diagnoses Diagnosis Sensorineural hearing loss, asymmetrical Fitting and adjustment of hearing aid documented in this encounter Care Teams Circulation Supervisor Relationship Specialty Start Date End Date Yarelis Shaikh MD [facility] [address] [place] [address] PCP - General 02/15/10 12/20/17 documented as of this encounter
--- OUTSIDE RECORDS SUMMARY | 2023-10-29 18:30 | XMS_ITS | Encounter Summary ---
[place] [address] Care Team Providers Care Rounding And Backing Machine Operator Name Role Phone Yarelis Shaikh MD Primary Care Provider Encounter Details Date Type Department Care Team (Latest Contact Info) Description 08/18/2016 2:15 PM EDT Clinical Support Audiology at [address] [address] Katalina Hodgson, [facility] [place] [address] Sensorineural hearing loss, asymmetrical Social History Tobacco [...] encounter Progress Notes * Katalina Hodgson - 08/18/2016 2:15 PM EDT AUDIOLOGY SECTION Patient's hearing instrument sent to [facility] (repair reason: d-lisa function). Upon receipt of hearing instrument from [employer], please download most recent session and verify [...] Taupe ?? Same ?? SERIAL NUMBER ?? [id number] ?? [id number] ?? BATTERY SIZE ?? 312 ?? 312 ?? BATTERY CLUB ? PROGRAM/SETTINGS ? FITTING ALGORITHM ?? N/A ?? DSL-Adult ?? VERIFICATION METHOD ?? N/A ?? REM ?? PROGRAMS ? Soundflow ?? DISABLED FEATURES ? OTHER COMMENTS ?? VC enabled ? HEARING AID WARRANTY ? ORIGINAL FIT DATE ?? 10/20/10 ?? 10/20/10 ?? CURRENT STATUS ?? Under large animal veterinarian repair and L&D coverage until 12/25/12 ?? Under large animal veterinarian repair and L&D coverage until 12/25/13 ?? EARMOLD (if BTE JOHNSON) ? LAB ?? Phonak ? EM (Style/material/vent/color) ?? CROS-Tip ? IMPRESSION DATE ?? 08/26/10 ? SERIAL / INVOICE # ?? Invoice #: [id number] 03/16/16 ?? Serial #: [id number]? TUBE/LORE (length/dome/sugar cane planter machine operator size) ?? Length 2 tube ?? Length 2 standard sugar cane planter machine operator/ medium open phonak dome ?? OTHER / COMMENTS ? Assistive Listening Devices/Wireless Accessories ?? Device? Phonak iCom ? Serial #? [id number] ? Fit Date? 11/17/10 ? Warranty Exp.? 01/29/12 ? documented in this encounter Plan of Treatment Upcoming Encounters Date Type Department Care Team (Late st Contact Info) Description 08/05/2024 4:30 PM EDT Office Visit Dermatology at [facility] [address] [place] [address] Rich Ivory MD [facility] DR ELVI [place] [address] documented as of this encounter Visit Diagnoses Diagnosis Sensorineural hearing loss, asymmetrical documented in this encounter Care Teams Rounding And Backing Machine Operator Relationship Specialty Start Date End Date Yarelis Shaikh MD [facility] D [address] [place] [address] PCP - General 02/15/10 12/20/17 documented as of this encounter
--- OUTSIDE RECORDS SUMMARY | 2023-10-29 18:30 | XMS_ITS | Encounter Summary ---
[place] [address] Care Team Providers Care Cell Tender Name Role Phone Yarelis Shaikh MD Primary Care Provider [phone] Reason for Visit * Reason Comments Hearing Problem Encounter Details Date Type Department Care Team (Latest Contact Info) Description 09/05/2010 1:00 PM EDT Office Visit Audiology at [address] [address] Dominga Patrick AUD [facility] [place] [address] Sensorineural hearing loss, unspecified (Primary Dx) Discharge Disposition: Home Social History [...] of this encounter Progress Notes * Dominga Patrick, [facility] - 09/05/2010 1:45 PM ED[place] [address] Basilio Duff was seen on 09/05/2010 for an audiologic evaluation. Please refer to the scanned audiogram listed under Media for findings, impressions and recommendations. It may take up to 24 hoursfor the audiogram to be scanned. Haleigh Ovalles [facility] [place] [address] documented in this encounter Plan of Treatment Upcoming Encounters Date Type Department Care Team (Late st Contact Info) Description 08/05/2024 4:30 PM EDT Office Visit Dermatology at [facility] [address] [place] [address] Rich Ivory MD [facility] DR [place] [address] documented as of this encounter Visit Diagnoses Diagnosis Sensorineural hearing loss, unspecified- Primary documented in this encounter Care Teams Cell Tender Relationship Specialty Start Date End Date Yarelis Shaikh MD [facility] [address] [place] [address] PCP - General 02/15/10 12/20/17 documented as of this encounter
--- OUTSIDE RECORDS SUMMARY | 2023-10-29 18:30 | XMS_ITS | Encounter Summary ---
Author Organization [facility] Address [facility] [place] [address] Care Team Providers Care Travel Coordinator Name Role Phone Yarelis Shaikh MD Primary Care Provider [phone] Reason for Visit * Reason Comments Skin Check Encounter Details Date Type Department Care Team (Late st Contact Info) Description 03/28/2016 10:30 AM EST Office Visit Dermatology at [facility] [address] [place] [address] Rich Ivory MD [facility] [place] [address] Scalp psoriasis; AK (actinic keratosis) Social History Tobacco Use Types Packs/Day Years [...] AM EDT documented as of this encounter Patient Instructions * Patient Instructions* Paula Sainz LPN - 03/28/2016 10:30 AM EST Actinic Keratoses You have been diagnosed today with Actinic Keratosis (AK). These dry, scaly patches are considered the earliest stage in the development of skin cancer. In rare cases, an AK can progress to skin cancer. Because of this risk, AKs are usually treated. You were treated today with Liquid Nitrogen. This is the most common treatment for AKs. Liquid nitrogen is extremely cold, and freezes the surface of the skin, causing the lesion to flake off. Treatment with liquid nitrogen can be uncomfortable, but discomfort should subside after a couple of hours. The area treated will look red and irritated, and it may blister up or turn dark, then fall off. This is normal! You do not need any special treatment for the area, but you may find cold compresses and/or a lightapplication of Vaseline soothing. For best results, do not rub or pick at the healing lesion. Expected healing time is 3-4 weeks. Please contact the Dermatology clinic at [phone] if the lesion has not fully resolved after 6 weeks. Mineral oil to spot on the left knee as needed documented in this encounter Progress Notes * Rich Ivory MD - 03/28/2016 10:30 AM EST Images from the original note were not included. Basilio Duff 03/28/2016 [id number] Roney Ivory MD ([id number]) Chief Problem: 1. 1 Year Pigmented Lesion and Skin Cancer Examination 2. History of actinic keratoses, scalp psoriasis, rosacea History: 70 y.o. year old male. Established patient to me. No significant changes in health or medications since last visit on 04/15/15. Patient presents to the clinic today, with , for a full skin cancer examination. Patient states that he has a lesion on the left knee x 6 months, asymptomatic.He has Protopic that he uses as needed, maybe once a month, in the inguinal folds and armpits for psoriasis and he uses [place]-smoothe oil on the scalp as needed for psoriasis. Moderate risk. Mostly AKs. [place] in winter. Medications: reviewed All: reviewed Review of Systems: [...] head, neck, face and scalp including behind theears. The chest, abdomen, back, and axillae, as well as the arms, hands, palms, fingers. Legs, feet, toes and soles were also examined. Specific findings: 1. Blue nevus on the left dorsal foot 2. Seborrheic keratosis on the trunk & extremities 3. Benign nevi in the back and extremities 4. Actinic keratosis on the face x 3 5. Scalp clear today, no psoriasis on exam 6. Traumatic wound on left lateral knee Verbal consent was given by patient to obtain and chart the following pictures: Photos taken by PAULA SAINZ LPN Assessment/Diagnosis: 1. Blue nevus, benign, patient reassured 2. Seborrheic keratosis, benign & extremities 3. Benign nevi, patient reassured 4. Actinic keratosis x 3 5. No psoriasis on scalp exam today 6. Traumatic wound, left lateral knee, benign patient reassured Procedure: 1. LN2 x 2 to actinic keratosis x 3 Prescription: 1. fluocinolone (DERMA-SMOOTHE) 0.01 % Oil Apply topically to the scalp nightly as needed, Disp-120mL, R-3 Treatment/Plan: Discussion - Spent over half of this visit discussing pathophysiology and the diagnosis, and counselling this patient on treatment options, expectations and follow-up plan. - Specifically discussed: 1. Sun avoidance re-emphasized, sunscreen, hats, clothing as always. 2. Mineral oil to the wound on the left lateral knee as needed 3. May continue to use [place]-smoothe oil to scalp as needed for scalp psoriasis Follow up: 1 year skin cancer exam, receptionist secretary will call to schedule, or sooner if needed I am documenting this encounter acting as the scribe for and in the presence of PAULA Singh LPN I performed the above scribed service and agree with the accuracy of the documentation in this encounter, MD Roney Napoles M.D. Section of Dermatology documented in this encounter Plan of Treatment Upcoming Encounters Date Type Department Care Team (Late st Contact Info) Description 08/05/2024 4:30 PM EDT Office Visit Dermatology at [address] [place] [address] Rich Ivory MD [facility] [place] [address] documented as of this encounter Visit Diagnoses Diagnosis Scalp psoriasis Other psoriasis AK (actinic keratosis) Actinic keratosis documented in this encounter Care Teams Travel Coordinator Relationship Specialty Start Date End Date Yarelis Shaikh MD [facility] [address] [place] [address] PCP - General 02/15/10 12/20/17 documented as of this encounter
--- OUTSIDE RECORDS SUMMARY | 2023-10-29 18:30 | XMS_ITS | Encounter Summary ---
Author Organization [facility] [place] [address] Care Team Providers Care Belly Dump Driver Name Role Phone Yarelis Shaikh MD Primary Care Provider [phone] Encounter Details Date Type Department Care Team (Late st Contact Info) Description 09/09/2010 Telephone [place] [phone] Gagan Martinez MD [facility] [place] [address] Social History Tobacco Use Types Packs/Day Years [...] encounter Miscellaneous Notes * Telephone Encounter - Ro Joseph - 09/09/2010 10:00 AM EDT AUDIOLOGY SECTION [facility] [place] [address] OFFICE: [phone] FAX: [phone] Hearing Aid Medical Evaluation I have examined this patient in the last six months and there appear to be no medical contraindications for the fitting of a hearing aid. documented in this encounter Plan of Treatment Upcoming Encounters Date Type Department Care Team (Late st Contact Info) Description 08/05/2024 4:30 PM EDT Office Visit Dermatology at [facility] [address] [place] [address] Rich Ivory MD [facility] DR ELVI [place] [address] documented as of this encounter Visit Diagnoses Not on filedocumented in this encounter Care Teams Belly Dump Driver Relationship Specialty Start Date End Date Yarelis Shaikh MD [facility] [address] [place] [address] PCP - General 02/15/10 12/20/17 documented as of this encounter
--- OUTSIDE RECORDS SUMMARY | 2023-10-29 18:30 | XMS_ITS | Encounter Summary ---
[facility] [place] [address] Care Team Providers Care Human Resources Manager Manufacturing Name Role Phone Yarelis Shaikh MD Primary Care Provider Encounter Details Date Type Department Care Team (Late st Contact Info) Description 06/03/2013 12:30 PM EDT Follow-Up Audiology at [address] [address] Jaky Eldridge, [facility] [place] [address] Sensorineural hearing loss, asymmetrical (Primary Dx) Social History Tobacco Use Types [...] this encounter Progress Notes * Jaky Eldridge, MS - 06/03/2013 1:11 PM EDT AUDIOLOGY SECTION Basilio Duff, age 67 years, was seen on 06/03/2013 for an audiologic evaluation in conjunction with Haleigh Vaca for audiologic management. Please refer to the scanned audiogram in the electronic medical record for findings, impressions and recommendations. Roney Eldridge MS, [facility] Clinical [place] [address] [phone] (fax) documented in this encounter Plan of Treatment Upcoming Encounters Date Type Department Care Team (Late st Contact Info) Description 08/05/2024 4:30 PM EDT Office Visit Dermatology at [facility] [address] [place] [address] Rich Ivory MD [facility] [address] [place] [address] documented as of this encounter Visit Diagnoses Diagnosis Sensorineural hearing loss, asymmetrical- Primary documented in this encounter Care Teams Human Resources Manager Manufacturing Relationship Specialty Start Date End Date Yarelis Shaikh MD [facility] [address] [place] [address] PCP - General 02/15/10 12/20/17 documented as of this encounter
--- OUTSIDE RECORDS SUMMARY | 2023-10-29 18:30 | XMS_ITS | Encounter Summary ---
[place] [address] Care Team Providers Care Wool And Pelt Grader Name Role Phone Yarelis Shaikh MD Primary Care Provider Reason for Visit * Reason Comments Acoustic Neuroma * Consultation (Routine) - Closed Specialty Diagnoses / Procedures Referred By oCnnie camp Referred To Contact Otolaryngology Diagnoses ACOUSTIC NEUROMA Yarelis Shaikh MD [facility] [address] [place] [address] Gagan Martinez MD [facility] [place] [address] Referral ID Status Reason Start Date Expiration Date V isits Requested Visits Authorized [id number] Closed Connection Center 04/20/2015 04/19/2016 1 1 Encounter Details Date Type Department Care Team (Late st Contact Info) Description 06/25/2015 2:50 PM EDT Office [place] [address] Gagan Martinez MD [facility] [place] [address] Carin Dsouza, LYSSA [facility] [place] [address] Right acoustic neuroma Social History Tobacco Use Types Packs/Day [...] Sign Reading Time Taken Comments Blood Pressure 107/72 06/25/2015 3:15 PM EDT Pulse 74 06/25/2015 3:15 PM EDT Temperature - - Respiratory Rate - - Oxygen Saturation - - Inhaled Oxygen Concentration - - Weight 86.2 kg (190 lb) 06/25/2015 3:15 PM EDT Height 177.8 cm (5' 10) 06/25/2015 3:15 PM EDT Body Mass Index 27.26 06/25/2015 3:15 PM EDT documented in this encounter Progress Notes * Carin Oakes APRN - 06/25/2015 3:46 PM EDT HPI: Patient is seen in the Acoustic Neuroma Clinic in follow up for right acoustic neuroma. Patient treated with stereotactic radiosurgery in [address] [facility]. Has been followed with serial MRI/audiogram. Patient returns today with follow-up MRI and audiogram. Hearing loss on right, for occurred in the years following radiation treatment; established profound hearing loss right; uses [employer] system Telephone use with affected ear no Tinnitus yes, unchanged Balance change no Falls no Ear pain/fullness no Facial numbness, twitching, weakness no Denies: vertigo, dizziness Denies: severe or persistent headaches Denies: Taste change/dry eye ROS: See HPI above. Patient further denies fevers, night sweats, unexplained weight change, anorexia, fatigue. PE: Constitutional: Appears well in NAD. Well-nourished, grooming and dress appropriate to situation. Neurological: Pupils equal and reactive, EOM full without nystagmus, palate and tongue midline. Facial function House-Brackmann Grade 1. Hitzelberger not tested. Strength 5/5 bilaterally UE/LE. Finger to nose is smooth and accurate, NILAM's intact. Gait narrow-based and smooth. Romberg stable. Tandem stance stable Tandem walk stable Fukuda midline MRI from today reviewed by me personally. A homogenously-enhancing mass is seen in the right acoustic canal, measuring 7 mm at its largest diameter on axial image. No hydrocephalus, brainstem compression, dural tail, cystic component. Comparison made to MRI from 2010 and there is no change. Audiogram from today shows established profound SNHL in the affected ear. Speech recognition score is 92%. This is unchanged in comparison to audiogram from 2013. Contralateral hearing shows mild SNHL. Assessment: Diagnosis was again reviewed, including imaging review, discussion of anatomy and related symptoms.Discussed stability over time, but that with remaining tumor, continued surveillance MRI is indicated. We discussed the relative difficulty in using symptoms as a guide for signs of tumor recurrence,as he has complete hearing loss already. We discussed the need to call with any worsening vestibular function or new facial symptoms. P: Repeat MRI in 5 years; continue audiogram in 12 months. Patient knows to call with any worseningof hearing symptoms, balance, ear pain or pressure, facial function, in the interim. * Bernie Cuba LNA - 06/25/2015 10:48 AM EDT In the presence of Dr Martinez, I am recording the patients history of present illness. Bernie NESBITT HPI: h/o HL in the right ear dxd with acoustic neuroma in 1998. Was treated with stereotactic radiation at [facility] for small tumor with no growth and loss of remaining functional hearing AD. Last seen in clinic on 09/05/2010. Doing well. No concerns today. System review: the Constitutional and ENT systems are thoroughly reviewed for any changes. Pertinent positives are listed in the HPI. Physical Exam: The patient is well developed, well nourished. Responds to commands appropriately. Vocalizes in a strong clear voice. Alert and oriented x3. Ears: The pinnas are without erythema or mass. Tymanpanic Membranes: Intact and mobile, bilaterally with negative Henebert's sign Facial motor function: strong and symmetrical Occular Exam: No spontaneous or gaze evoked nystagmus, EOMI with smooth pursuit Eyes-closed Rhomberg: Stable Tandem Rhomberg: Stable Tandem Gait: No significant errors Fukuda Stepping Test: stable with no significant rotation The following audiological studies were reviewed by me: The following imaging studies were reviewed by me: Impression / Plan: I have performed the service outlined in the notes from this encounter and agree with the accuracy of the note. Nasim Martinez MD documented in this encounter Plan of Treatment Upcoming Encounters Date Type Department Care Team (Late st Contact Info) Description 08/05/2024 4:30 PM EDT Office Visit Dermatology at [facility] [address] [place] [address] Rich Ivory MD [facility] DR ELVI [place] [address] documented as of this encounter Visit Diagnoses Diagnosis Right acoustic neuroma Benign neoplasm of cranial nerves documented in this encounter Care Teams Wool And Pelt Grader Relationship Specialty Start Date End Date Yarelis Shaikh MD [facility] D [address] [place] [address] PCP - General 02/15/10 12/20/17 documented as of this encounter
--- OUTSIDE RECORDS SUMMARY | 2023-10-29 18:31 | XMS_ITS | Encounter Summary ---
Author Organization [facility] Address [address] [place] [address] Care Team Providers Care Yard Crane Operator Name Role Phone Yarelis Shaikh MD Primary Care Provider Unavailable Reason for Visit * Reason Comments Follow-up BRAO right eye, VS a nd Schisis both eyes Encounter Details Date Type Department Care Team (Late st Contact Info) Description 09/13/2010 13:45 EDT Office Visit [facility] Ophthalmology - [address] [id number] Luca Garcia MD [address] [facility] [place] [address] Social History Tobacco Use Types Packs/Day Years Used Date Smoking Tobacco: Former Cigarettes Q uit: 02/24/1975 Alcohol Use Standard Drinks/Week Comments No 0 (1 standard drink = 0.6 oz pur e alcohol) Sex and Gender Information Value Date Recorded Sex Assigned at Not on file Gender Identity Not on file Sexual Orientation Not on file documented as of this encounter Progress Notes * Luca Garcia MD - 09/13/2010 1401 EDT Chief Complaint Patient presents with ??? Follow-up BRAO right eye, VS and Schisis both eyes HPI Location: Both eyes Pain: 0 - No pain Quality: (VA stable) Severity: Duration: Months Timing: Constant Lasts: Continuous Context: VA stable per pt since last visit Modifying factors: None Associated Signs & Symptoms: No flashes or floaters Visual Fluctuations: None Attestation: Base Ophthalmology Exam Visual Acuity Right Left Dist cc 20/20 -2 20/20 -2 Method: Snellen - Linear Correction: Glasses Tonometry Right Left Pressure 16 14 Method: Applanation Time: 13:47 Dilation Both eyes: 1.0% Mydriacyl, 2.5% Phenylephrine @ 13:47 Pupils Pupils Right PERRL Left PERRL Main Ophthalmology Exam External Exam Right Left External Normal Normal Slit Lamp Exam Right Left Lids/Lashes Blepharitis Blepharitis Conjunctiva/Sclera White and quiet White and quiet Cornea Clear Clear Anterior Chamber Deep and quiet Deep and quiet Iris Round and reactive Round and reactive Lens 2+ Nuclear sclerosis 2+ Nuclear sclerosis Vitreous Vitreous syneresis Vitreous syneresis Fundus Exam Right Left Disc Normal Normal C/D Ratio 0.3 0.3 Macula Normal nl Vessels Vascular attenuation nl Periphery schisis inf T, no holes or tears schisis inf T, no holes or tears Neuro/Psych Oriented x3: Yes All five layers of the cornea are normal unless otherwise specified. Please refer to large retinal drawing. IMPRESSION: 1. 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 Nuclear cataract (366.16D) 4. 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 Luca Garcia, have performed my own HPI and reviewed the tech's ROS. I have also reviewed thepatient's past medical, family, social and surgical history, as well as the patient's medications, allergies, and problem list. I am scribing for Dr. Luca Garcia MD while he is personally performing the service. KIRA Mcclendon (Scribe) documented in this encounter Plan of Treatment Not on file documented as of this encounter Visit Diagnoses Diagnosis Arterial branch occlusion of retina Vitreous syneresis Other vitreous opacities Nuclear cataract Senile nuclear sclerosis Blepharitis, both eyes Blepharitis, unspecified Retinoschisis, unspecified documented in this encounter Eye Exam Visual Acuity (Snellen - Linear) Right eye Left eye Dist cc 20/20 -2 20/20 -2 Correction: Glasses Tonometry (Applanation, 13:47) Right eye Left eye Pressure 16 14 Pupils Pupils Right eye PERRL Left eye PERRL Neuro/Psych Oriented x3: Yes Dilation Both eyes: 1.0% Mydriacyl, 2 .5% Phenylephrine @ 13:47 External Exam Right eye Left eye External Normal Normal Slit Lamp Exam Right eye Left eye Lids/Lashes Blepharitis Blepharitis Conjunctiva/Sclera White and quiet White and mirela et Cornea Clear Clear Anterior Chamber Deep and quiet Deep and quiet Iris Round and reactive Round and marquita ctive Lens 2+ Nuclear sclerosis 2+ Nuclear sclerosis Vitreous Vitreous syneresis Vitreous syne resis Fundus Exam Right eye Left eye Disc Normal Normal C/D Ratio 0.3 0.3 Macula Normal nl Vessels Vascular attenuation nl Periphery schisis inf T, no holes or tears schisis inf T, no holes or tears Care Teams Yard Crane Operator Relationship Specialty Start Date End Date Yarelis Shaikh MD PCP - General 02/23/10 documented as of this encounter
--- OUTSIDE RECORDS SUMMARY | 2023-10-29 18:31 | XMS_ITS | Encounter Summary ---
Author Organization [facility] Address [address] [place] [address] Care Team Providers Care Wildlife Officer Name Role Phone Unavailable Primary Care Provider Unavailabl e Encounter Details Date Type Department Care Team (Latest Contact Info) Description 01/05/2005 11:32 EDT - 01/05/2005 11:59 EDT Hospital Encounter [address] [address] Basilio Varela MD Discharge Disposition: Auto Discharge Social History Tobacco Use Types Packs/Day Years Used Date Smoking Tobacco: Never Assessed Sex and Gender Information Value Date Recorded Sex Assigned at Not on file Gender Identity Not on file Sexual Orientation Not on file documented as of this encounter Discharge Disposition Disposition Code Departure Means Destination Auto Discharge documented in this encounter Plan of Treatment Not on file documented as of this encounter Visit Diagnoses Not on filedocumented in this encounter
--- OUTSIDE RECORDS SUMMARY | 2023-10-29 18:31 | XMS_ITS | Referral Summary ---
Author Organization [facility] Address [address] [place] [address] Care Team Providers Care Advanced Practice Registered Nurse Name Role Phone Yarelis Shaikh MD Primary Care Provider Unavailable Allergies No known active allergies Medications Medication Sig Dispensed Refills Start Date End Date Status aspirin 81 mg EC tablet Take 325 mg by mouth daily. Active MULTI-VITAMIN ORAL Take by mouth. Ac tive Dpucb-3-DDQ-EPA-Fish Oil (FISH OIL) 1,000 (120-180) mg Cap Take by mouth. Acti ve omeprazole (PRILOSEC) 20 mg capsule Take 20 mg by mouth daily. Active Active Problems Problem Noted Date Diagnosed Date Retinoschisis 02/24/2010 Overview: A. Both eyes IMO Update Auto Replacement Arterial branch occlusion of retina 02/24/2010 Overview: A. Right eye Vitreous syneresis 02/24/2010 Overview: A. Both eyes Nuclear cataract 02/24/2010 Overview: A. Both eyes, mild Blepharitis of both eyes 02/24/2010 Social History Tobacco Use Types Packs/Day Years Used Date Smoking Tobacco: Former Cigarettes Q uit: 02/24/1975 Alcohol Use Standard Drinks/Week Comments No 0 (1 standard drink = 0.6 oz pur e alcohol) Sex and Gender Information Value Date Recorded Sex Assigned at Not on file Gender Identity Not on file Sexual Orientation Not on file Plan of Treatment Not on file Care Teams Advanced Practice Registered Nurse Relationship Specialty Start Date End Date Yarelis Shaikh MD PCP - General 02/23/10
--- OUTSIDE RECORDS SUMMARY | 2023-10-29 18:31 | XMS_ITS | Encounter Summary ---
Author Organization [facility] Address [address] [place] [address] Care Team Providers Care Frame Cleaner Name Role Phone Yarelis Shaikh MD Primary Care Provider Unavailable Reason for Visit * Reason Comments Follow-up BRAO - right eye.VA stable per pt. No flashes and floaters.No pain and no JOHNSON.Occ'l pain if drive for long time above the eye. Encounter Details Date Type Department Care Team (Late st Contact Info) Description 05/03/2010 10:15 EST Office Visit [facility] Ophthalmology - [address] [address] Luca Garcia MD [address] [place] [address], [address] [place] [address] Social History Tobacco Use Types [...] as of this encounter Progress Notes * Cookie Gabriel OTA - 05/03/2010 1219 EST Chief Complaint Patient presents with ??? Follow-up BRAO - right eye.VA stable per pt. No flashes and floaters.No pain and no JOHNSON.Occ'l pain if drive for long time above the eye. HPI Location: Right eye Pain: 0 - No pain Quality: seems to be well. Does not really even notice area of no vision anymore. Only sees it whenchecking grid. Does not see when reading or any small tasks. Defect is very mild. Definitely no worse than before. Left eye is stable Severity: Duration: Timing: Lasts: Context: No loss of va / va stable Modifying factors: no flashes and floaters Associated Signs & Symptoms: Visual Fluctuations: None Attestation: Base Ophthalmology Exam Visual Acuity Right Left Dist cc 20/20 -1 20/20 Tonometry Right Left Pressure 13 15 Method: Applanation Time: 11:07 Dilation Both eyes: 1.0% Mydriacyl @ 11:07 Pupils Pupils Dark React APD Right PERRL 4 Brisk None Left PERRL 4 Brisk None Main Ophthalmology Exam Slit Lamp Exam Right Left Lids/Lashes Blepharitis Blepharitis Conjunctiva/Sclera White and quiet White and quiet Cornea Clear Clear Anterior Chamber Deep and quiet Deep and quiet Iris Round and reactive Round and reactive Lens 1+ Nuclear sclerosis 1+ Nuclear sclerosis Vitreous Vitreous syneresis Vitreous syneresis Fundus Exam Right Left C/D Ratio 0.3 0.3 Macula nl nl Vessels brao,no emboli seen nl Periphery schisis inf schisis inf IMAGING: IMPRESSION: 1. 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 Nuclear cataract (366.16D) 5. Blepharitis, unspecified (373.00) PLAN: Pt stable, remains with good vision, and is not bothered by scotoma anymore Negative BRYAN, carotids, MRI and MRA per patient report All normal as told to pt Does have nodule on thyroid gland that was noted No tears or breaks Mild cats both 4 mos f/u Sooner prn I, Dr. Luca Garcia, have performed my own HPI and reviewed the tech's ROS. I have also reviewed thepatient's past medical, family, social and surgical history, as well as the patient's medications, allergies, and problem list. I am scribing for Dr.Brian Jairo Garcia MD while he is personally performing the service. KIRA Thorne (Scribe) documented in this encounter Miscellaneous Notes * Scanned Note-Null - Inpatient, Physician - 05/03/2010 1610 EST documented in this encounter Plan of Treatment Not on file documented as of this encounter Visit Diagnoses Diagnosis Arterial branch occlusion of retina Retinoschisis, unspecified Vitreous syneresis Other vitreous opacities Nuclear cataract Senile nuclear sclerosis Blepharitis, unspecified documented in this encounter Historical Medications * This list may reflect changes made after this encounter. Medication Sig Dispensed Refills Start Date End Date Sqcts-1-LYC-EPA-Fish Oil (FISH OIL) 1,000 (120-180) mg Cap Take by mouth. MULTI-VITAMIN ORAL Take by mouth. added in this encounter Eye Exam Visual Acuity Right eye Left eye Dist cc 20/20 -1 20/20 Tonometry (Applanation, 11:07) Right eye Left eye Pressure 13 15 Pupils Pupils Dark React APD Right eye PERRL 4 Brisk None Left eye PERRL 4 Brisk None Neuro/Psych Oriented x3: Yes Dilation Both eyes: 1.0% Mydriacyl @ 11:07 External Exam Right eye Left eye External Normal Normal Slit Lamp Exam Right eye Left eye Lids/Lashes Blepharitis Blepharitis Conjunctiva/Sclera White and quiet White and mirela et Cornea Clear Clear Anterior Chamber Deep and quiet Deep and quiet Iris Round and reactive Round and marquita ctive Lens 1+ Nuclear sclerosis 1+ Nuclear sclerosis Vitreous Vitreous syneresis Vitreous syne resis Fundus Exam Right eye Left eye Disc Normal Normal C/D Ratio 0.3 0.3 Macula nl nl Vessels brao IT arcade, no new emboli se en nl Periphery schisis inf T, no holes or tears schisis inf T, no holes or tears Care Teams Frame Cleaner Relationship Specialty Start Date End Date Yarelis Shaikh MD PCP - General 02/23/10 documented as of this encounter
--- OUTSIDE RECORDS SUMMARY | 2023-10-29 18:31 | XMS_ITS | Patient Health Record ---
Author Organization [facility] Address [address] [place], [place] [address] Care Team Providers Care Ticket Maker Name Role Phone PORSHA DAVEY,CULLEN PEREA Primary Care Provider ALLERGIES Allergen (clinical drug ingredient) Drug/Non Drug Allergy documented on EMR Reaction Allergy Type Onset Date Status Seasonal IC Unknown Drug Allergy Activ e REASON FOR REFERRAL No Information MEDICATIONS Medication SIG (Take, Route, Frequency, Duration) Notes Start Date End Date Status Multivitamin Adults - as directed Orally once a day Active Prostate Support Act pedro Aspirin 325 MG 1 tablet Orally Once a day for 30 day(s) Active Atorvastatin Calcium 20 MG TAKE 1 TABLET BY MOUTH EVERY DAY for 90 Active SOCIAL HISTORY Tobacco Use: Social History Observation Description Date Details (start date - stop date) Never Smoker NA - NA Sex Assigned At : Social History Observation Description Sex Assigned At Unknown Tobacco Use/Smoking Question Answer Notes Are you a nonsmoker PROBLEMS Problem Type ICD Code Onset Dates Problem Status W/U Status Risk SNOMED Code Notes Problem Mixed hyperlipidemia (E78.2) Active confirmed 014886206 Problem Frequency of micturition (R35.0) Active confirmed 496417737 Problem Benign prostatic hyperplasia with lower urinary tract symptoms (N40.1) Active confirmed 699867042 Problem Obstructive sleep apnea (G47.33) Active confirmed 52495411 PLAN OF TREATMENT Pending Test Test Name Order Date VENIPUNCT, ROUTINE* 05/03/2021 Future Test Test Name Order Date C-PAP 04/29/2020 Sleep Study - Polysomnography Stage 4+ 0 04/29/2020 LIPID PANEL WITH REFLEX TO DIRECT LDL COMPREHENSIVE METABOLIC PANEL 05/06/2021 TSH 05/06/2021 Insurance Providers Payer Name Payer Address Payer Phone Subscriber Number Group Number Insured Name Patient Relationship to Insured Coverage Start Date Coverage End Date [employer] [place] [employer] [facility] [address] [place] [address] [id number] [place] Self - patient is the insured 2 MEDICAL (GENERAL) HISTORY Medical History History ICD Code post-stroke, right eye Allergies: tree pollen Surgical History Surgery Date(Month/Year) polyp removed 2017 Hospitalization History Reason Date(Month/Year) Neftaly Witt 1998
--- OUTSIDE RECORDS SUMMARY | 2023-10-29 18:31 | XMS_ITS | Encounter Summary ---
Author Organization [facility] Address [address] [place] [address] Care Team Providers Care Operator Technician Name Role Phone Unavailable Primary Care Provider Unavailabl e Encounter Details Date Type Department Care Team (Latest Contact Info) Description 2001 8:59 EDT - 2001 11:59 EDT Hospital Encounter [address] [address] Yarelis Shaikh MD Discharge Disposition: Auto Discharge Social History [...] on file documented as of this encounter Procedures Procedure Name Priority Date/Time Associated Diagnosis Comments MR ANGIO HEAD,BRAIN W/WO CONTRAST Routine 2001 10:28 EDT documented in this encounter Results * MR ANGIO HEAD,BRAIN W/WO CONTRAST (2001 10:28 EDT) Anatomical Region Laterality Modality Other 2001 10:2 8 EDT Narrative 12/21/2008 3:59 EDT VERTIGO R/O ACOUSTIC NEUROMA MRI BRAIN, WITH/WITHOUT CONTRAST, WITH NONCONTRAST MR ANGIOGRAM OF THE [place]: 12/22/01 CLINICAL HISTORY: Vertigo. Evaluate for acoustic neuroma. TECHNIQUE: Sagittal T1 FLAIR, axial T2 FLAIR, FSE T2, diffusion, gradient echo, pre- and post-gadolinium axial thin section FSE T1, post contrast coronal fat-saturated FSE T1 weighted scans of the brain. 3D [id number] MR angiography of the [place] with targeted MIP reconstructions. FINDINGS: There is prominent susceptibility artifact, probably emanating from the oral cavity. This is evident over the left maxillary sinus and creates high signal abnormality on multiple of the pulse sequences in the medial left temporal lobe simulating a lesion there. There is an expansile mass in the right internal auditory canal that enlarges the canal. The signal characteristics are isointense to brain on T1 and high signal intensity on T2. There is dense uniform enhancement of the lesion following contrast administration. Enhancement extends up to the level of the modiolus but does not extend into the cochlea or vestibule. A small amount of enhancing tissue is seen extending slightly beyond the pars acusticus, but there is no definite dural tail identified. The left internal auditory canal and cerebellopontine angle cisterns are free of abnormality. The [place] MRA shows robust flow in the internal carotid arteries, middle and anterior cerebral artery trunks, and cortical branches. The right A1 segment of the anterior cerebral artery is hypoplastic. There is a probable small infundibulum arising from the left internal carotid artery which is associated with a very small posterior communicating artery. CONCLUSION: 1. 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 2. Focal artifact simulating left medial temporal lobe lesion. 3. No evidence of intracranial aneurysm or significant flow-limiting stenosis. dw Procedure Note Ramesh Harrell MD - 12/21/2008 VERTIGO R/O ACOUSTIC NEUROMA MRI BRAIN, WITH/WITHOUT CONTRAST, WITH NONCONTRAST MR ANGIOGRAM OF THE [place]: 12/22/01 CLINICAL HISTORY: Vertigo. Evaluate for acoustic neuroma. TECHNIQUE: Sagittal T1 FLAIR, axial T2 FLAIR, FSE T2, diffusion, gradient echo, pre- and post-gadolinium axial thin section FSE T1, post contrast coronal fat-saturated FSE T1 weighted scans of the brain. 3D [id number] MR angiography of the [place] with targeted MIP reconstructions. FINDINGS: There is prominent susceptibility artifact, probably emanating from the oral cavity. This is evident over the left maxillary sinus and creates high signal abnormality on multiple of the pulse sequences in the medial left temporal lobe simulating a lesion there. There is an expansile mass in the right internal auditory canal that enlarges the canal. The signal characteristics are isointense to brain on T1 and high signal intensity on T2. There is dense uniform enhancement of the lesion following contrast administration. Enhancement extends up to the level of the modiolus but does not extend into the cochlea or vestibule. A small amount of enhancing tissue is seen extending slightly beyond the pars acusticus, but there is no definite dural tail identified. The left internal auditory canal and cerebellopontine angle cisterns are free of abnormality. The [place] MRA shows robust flow in the internal carotid arteries, middle and anterior cerebral artery trunks, and cortical branches. The right A1 segment of the anterior cerebral artery is hypoplastic. There is a probable small infundibulum arising from the left internal carotid artery which is associated with a very small posterior communicating artery. CONCLUSION: 1. 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 2. Focal artifact simulating left medial temporal lobe lesion. 3. No evidence of intracranial aneurysm or significant flow-limiting stenosis. dw Yarelis Marissa Shaikh MD IMG MRI ORDERAB LES documented in this encounter Visit Diagnoses Not on filedocumented in this encounter
--- OUTSIDE RECORDS SUMMARY | 2023-10-29 18:31 | XMS_ITS | Encounter Summary ---
Author Organization [facility] Address [address] [place] [address] Care Team Providers Care Airborne Operations Manager Name Role Phone Yarelis Shaikh MD Primary Care Provider Unavailable Encounter Details Date Type Department Care Team (Late st Contact Info) Description 09/07/2010 Abstract Used for ABSTRACTING Data [phone] Luca Garcia MD [address] [place] [address], [facility] [address] [place] [address] Social History Tobacco Use Types Packs/Day Years Used Date Smoking Tobacco: Former Cigarettes Q uit: 02/24/1975 Alcohol Use Standard Drinks/Week Comments No 0 (1 standard drink = 0.6 oz pur e alcohol) Sex and Gender Information Value Date Recorded Sex Assigned at Not on file Gender Identity Not on file Sexual Orientation Not on file documented as of this encounter Plan of Treatment Not on file documented as of this encounter Visit Diagnoses Not on filedocumented in this encounter Care Teams Airborne Operations Manager Relationship Specialty Start Date End Date Yarelis Shaikh MD PCP - General 02/23/10 documented as of this encounter
--- OUTSIDE RECORDS SUMMARY | 2023-10-29 18:31 | XMS_ITS | Encounter Summary ---
Author Organization [facility] Address [address] [place] [address] Care Team Providers Care Legal Transcriptionist Name Role Phone Yarelis Shaikh MD Primary Care Provider Unavailable Encounter Details Date Type Department Care Team (Late st Contact Info) Description 02/25/2010 Office Visit S Provider Relations Department [address] [place] [address] Inpatient, PhysicianMD Social History Tobacco Use Types Packs/Day Years Used Date Smoking Tobacco: Former Cigarettes Q uit: 02/24/1975 Alcohol Use Standard Drinks/Week Comments No 0 (1 standard drink = 0.6 oz pur e alcohol) Sex and Gender Information Value Date Recorded Sex Assigned at Not on file Gender Identity Not on file Sexual Orientation Not on file documented as of this encounter Progress Notes * Inpatient, Physician - 02/25/2010 1136 EST documented in this encounter Miscellaneous Notes * Scanned Note-Null - Inpatient, Physician - 02/25/2010 1427 EST documented in this encounter Plan of Treatment Not on file documented as of this encounter Visit Diagnoses Not on filedocumented in this encounter Care Teams Legal Transcriptionist Relationship Specialty Start Date End Date Yarelis Shaikh MD PCP - General 02/23/10 documented as of this encounter
--- OUTSIDE RECORDS SUMMARY | 2023-10-29 18:31 | XMS_ITS | Encounter Summary ---
Author Organization [facility] Address [address] [place] [address] Care Team Providers Care Tennis Court Attendant Name Role Phone Yarelis Shaikh MD Primary Care Provider Unavailable Reason for Visit * Reason Comments Follow-up BRAO right eye Encounter Details Date Type Department Care Team (Late st Contact Info) Description 09/28/2011 14:15 EDT Office Visit [facility] Ophthalmology - [address] [address] Luca Garcia MD [address] [place] [address], [address] [place] [phone] Social History Tobacco Use Types Packs/Day Years [...] Progress Notes * Luca Garcia MD - 09/28/2011 2806 EDT Chief Complaint Patient presents with ??? Follow-up BRAO right eye HPI Location: Both eyes Pain: 0 - No pain Quality: Blurry Severity: Mild Duration: Months Timing: Constant Lasts: Continuous Context: VA stable both eyes since last visit. no flashes or floaters Modifying factors: Associated Signs & Symptoms: Visual Fluctuations: None Attestation: Base Ophthalmology Exam Visual Acuity Right Left Both Dist cc 20/25 -2 20/25 -2 Method: Snellen - Linear Correction: Glasses Tonometry Right Left Pressure 16 15 Method: Applanation Time: 14:24 Dilation Both eyes: 1.0% Mydriacyl, 2.5% Phenylephrine @ 14:24 Visual Olivares Right Left Result Full Full Extraocular Movement Right Left Result Full Full Main Ophthalmology Exam External Exam Right Left [...] 0.3 0.3 Macula Normal nl Vessels Vascular attenuation, mild nl Periphery schisis inf T, no holes or tears schisis inf T, no holes or tears Neuro/Psych Oriented x3: Yes Mood/Affect: Normal All five layers of the cornea are normal unless otherwise specified. Please refer to large retinal drawing. 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 Blepharitis, unspecified PLAN: BRAO right eye No new emboli Mild vasc attenuation. Schisis both eyes. No holes, tears or breaks. VS both eyes. No PVD Mild NSC both eyes. NVS WC for bleph both eyes. Follow up 1 yr, sooner prn. I have reviewed the patient's past medical, family, social and surgical history. I have also reviewed the patient's medications, allergies, and problem list. I performed my own HPI and have reviewed the tech's ROS as well. I personally completed this exam myself. Luca Garcia MD I am scribing for Dr. Luca Garcia MD, while he is personally performing the service. documented in this encounter Plan of Treatment Not on file documented as of this encounter Visit Diagnoses Diagnosis Arterial branch occlusion of retina- Primary Retinoschisis, unspecified Vitreous syneresis Other vitreous opacities Senile nuclear sclerosis Blepharitis, unspecified documented in this encounter Discontinued Medications Medication Sig Discontinue Reason Start Date End Da te moxifloxacin (VIGAMOX) 0.5 % ophthalmic solution Place into the right eye 4 times daily. Therapy completed 02/24/2010 09/28/2011 documented as of this encounter Historical Medications * This list may reflect changes made after this encounter. Medication Sig Dispensed Refills Start Date End Date omeprazole (PRILOSEC) 20 mg capsule Take 20 mg by mouth daily. added in this encounter Eye Exam Visual Acuity (Snellen - Linear) Right eye Left eye Dist cc 20/25 -2 20/25 -2 Correction: Glasses Tonometry (Applanation, 14:24) Right eye Left eye Pressure 16 15 Visual Olivares Right eye Left eye Full Full Extraocular Movement Right eye Left eye Full Full Neuro/Psych Oriented x3: Yes Mood/Affect: Normal Dilation Both eyes: 1.0% Mydriacyl, 2 .5% Phenylephrine @ 14:24 External Exam Right eye Left eye External [...] 0.3 0.3 Macula Normal nl Vessels Vascular attenuation, mild nl Periphery schisis inf T, no holes or tears schisis inf T, no holes or tears Care Teams Tennis Court Attendant Relationship Specialty Start Date End Date Yarelis Shaikh MD PCP - General 02/23/10 documented as of this encounter
--- OUTSIDE RECORDS SUMMARY | 2023-10-29 18:31 | XMS_ITS | Encounter Summary ---
[place] [address] Care Team Providers Care Photonic Laboratory Technician Name Role Phone Yarelis Shaikh MD Primary Care Provider [phone] Encounter Details Date Type Department Care Team (Late st Contact Info) Description 04/19/2010 2:00 PM EST Office [place] [address] Watson Panda MD [address] [place] [address] Discharge Disposition: Home Social History Tobacco Use [...] at [facility] [address] [place] [address] Rich Ivory MD [facility] [place] [address] documented as of this encounter Visit Diagnoses Not on filedocumented in this encounter Care Teams Photonic Laboratory Technician Relationship Specialty Start Date End Date Yarelis Shaikh MD CECILIO Byrne [address] [place] [address] PCP - General 02/15/10 12/20/17 documented as of this encounter
--- OUTSIDE RECORDS SUMMARY | 2023-10-29 18:31 | XMS_ITS | Encounter Summary ---
Author Organization [facility] Address [address] [place] [address] Care Team Providers Care Load Haul Dump Operator Name Role Phone Unavailable Primary Care Provider Unavailabl e Encounter Details Date Type Department Care Team (Late st Contact Info) Description 01/24/2007 Before PRISM Converted Visit (Maple) [facility] - Maple conversion [address] [place] [address] Nixon Hernandez MD [address] [facility], [facility] [address] [place] [phone] Social History Tobacco Use Types Packs/Day Years Used Date Smoking Tobacco: Never Assessed Sex and Gender Information Value Date Recorded Sex Assigned at Not on file Gender Identity Not on file Sexual Orientation Not on file documented as of this encounter Progress Notes * Nixon Hernandez MD - 02/03/2009 1026 EST DIVISION OF OTOLARYNGOLOGY PROGRESS/FOLLOWUP NOTE - 01/24/2007 SUBJECTIVE 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 It was treated with focused radiotherapy several years ago at [facility]. His hearing has been stable and serial MRIs have shown no significant change in the diameter of this tumor. He recently had a repeat study after a two year interval. OBJECTIVE On examination today he is alert and appears comfortable. Both tympanic membranes and external auditory canals are normal. Facial nerve function is normal and symmetric. There is no nystagmus. Extraocular movements are intact. Audiogram shows a stable right severe sensorineural hearing loss with 12% discrimination. He has a mild left high frequency sensorineural hearing loss with 100% discrimination which is also stable. Review of the CT reports shows a 6.4 x 8.9 millimeter enhancing lesion at the level of the fundus of the right internal auditory canal. This has not changedin size significantly since the last study. There was an incidental lesion in the mesial right temporal lobe noted. He is having a high resolution MRI done to evaluate that, but interestingly he had an MRA done back in 2001 for a similar findingand it was found to be artifact. ASSESSMENT Stable hearing and acoustic neuroma after radiosurgery many years ago. PLAN I would repeat another MR an audiogram in two years. He will come in sooner if he has any other problems. Signed by Nixon Hernandez MD 01/31/2007 14:37 Nixon Hernandez MD D: - Nixon Hernandez MD - kmb Job ID: [id number] Doc ID: [id number] cc: Yarelis Shaikh MD documented in this encounter Plan of Treatment Not on file documented as of this encounter Visit Diagnoses Not on filedocumented in this encounter
--- OUTSIDE RECORDS SUMMARY | 2023-10-29 18:31 | XMS_ITS | Encounter Summary ---
Author Organization [facility] Address [address] [place] [address] Care Team Providers Care Diesel Inspector Name Role Phone Yarelis Shaikh MD Primary Care Provider Unavailable Encounter Details Date Type Department Care Team (Late st Contact Info) Description 11/13/2019 Lab Requisition [facility] Pathology & Laboratory Medicine - [address] [id number] Outr Resulting Lab, Provider Social History Tobacco Use Types Packs/Day Years Used Date Smoking Tobacco: Never Assessed Sex and Gender Information Value Date Recorded Sex Assigned at Not on file Gender Identity Not on file Sexual Orientation Not on file documented as of this encounter Plan of Treatment Not on file documented as of this encounter Procedures Procedure Name Priority Date/Time Associated Diagnosis Comments PSA TOTAL, DIAGNOSTIC Routine 11/12/2019 14:45 EDT documented in this encounter Results * PSA TOTAL, DIAGNOSTIC (11/12/2019 14:45 EDT) PSA 3.2 0.0 - 6.5 ng/mL 11/13/2019 17:43 EDT [facility] Blood VENOUS BLOOD / Unknown 11/12/2019 14:45 EDT 11/13/2019 15:41 EDT Narrative [facility] - 11/13/2019 17:43 EDT NOTE: Serum PSA concentration should not be interpreted as absolute evidence for the presence or absence of malignant disease. Assayed on Siemens ADVIA [employer] XPT using chemiluminescent technology.??Values obtained by using different assay methods cannot be used interchangeably. Provider Outr Resulting Lab CHEMISTRY & BLOOD GAS ORDERABLES [facility] [address] [place] [address] documented in this encounter Visit Diagnoses Not on filedocumented in this encounter Care Teams Diesel Inspector Relationship Specialty Start Date End Date Yarelis Shaikh MD PCP - General 02/23/10 documented as of this encounter
--- OUTSIDE RECORDS SUMMARY | 2023-10-29 18:31 | XMS_ITS | Encounter Summary ---
Author Organization [facility] Address [address] [place] [address] Care Team Providers Care Pen Rider Name Role Phone Yarelis Shaikh MD Primary Care Provider Unavailable Reason for Visit * Reason Comments Eye Problem Eval SRN right eye V A changes started Sunday afternoon Encounter Details Date Type Department Care Team (Late st Contact Info) Description 02/24/2010 9:00 EST Office Visit [facility] Ophthalmology - [address] [id number] Luca Garcia MD [address] [facility], [address] [place] [address] Social History Tobacco Use Types [...] Progress Notes * Luca Garcia MD - 03/01/2010 0844 EST DIVISION OF OPHTHALMOLOGY [facility] PROGRESS/FOLLOWUP NOTE - 02/24/2010 Jim العلي MD [address] [place], [place] [address] [address] [place] [address] Dear Christian: Thank you for allowing me to see Mr Duff. As you know, I am seeing him in evaluation for an unusual lesion or hemorrhage in his right eye. A dilated fundus exam with extended ophthalmoscopy was performed in both eyes and showed in the right eye, a cup-to-disc ratio of 0.3. He has a normal-appearing macula other than the BRAO, which is seen in his inferior temporal arcade. I do not see any definite areas of emboli but he definitely has ischemia associated with area of the artery occlusion. In his left eye, he has a cup-to-disc ratio of 0.3, again with vitreous syneresis. He does have some mildly thin vessels in this eye, but no evidence of an artery occlusion in this eye. Fluorescein angiography was done, which actually showed fairly good flow to the area of the previous BRAO. I see no obvious emboli in this eye. His left eye has good flow. Impression: 1. BRAO, right eye. 2. Vitreous syneresis, both eyes. 3. Nuclear cataracts, mild, both eyes. 4. Blepharitis, both eyes. 5. 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 Plan: Christian, unfortunately, even though he did not like being hospitalized overnight, they did run some tests, which will shorten the workup that need to be done. I am including his PCP in this letter so she knows what is going on. It appears that he already has a cardiac echo scheduled within the next two weeks. I will draw a giant cell panel just to rule that out, but I doubt very much that it will come back positive. Unfortunately, he knows there is not much to do about this arterial occlusion. It does seem to have passed. I wonder though, he had some migrainous-like symptoms right before this happened with a metallic taste in his mouth, so I wonder whether this was just vasospasm. In any case, I will see him back in five weeks or sooner with any problems. Thanks again for allowing me to see him. Sincerely, Electronically Signed by Luca Garcia MD 03/01/2010 08:44 Luca Garcia MD [facility] [address] [place] [address] - Luca Garcia MD - JV Job ID: SM Doc ID: [id number] Ext Doc ID: [id number] cc: MD Jim Meyer MD * Luca Garcia MD - 02/24/2010 1001 EST Chief Complaint Patient presents with ??? Eye Problem Eval SRN right eye [facility] changes started Sunday HPI Location: Right eye Pain: 0 - No pain Quality: Blurry;Distorted Severity: Moderate Duration: Days Timing: Constant Lasts: Continuous Context: Noticed area in right eye that was blurry/distorted pie shape, looks like when someone shines a flash light in eye. Modifying factors: Associated Signs & Symptoms: Visual Fluctuations: None Attestation: Base Ophthalmology Exam Visual Acuity Right Left Dist cc 20/20 -2 20/20 -3 Method: Snellen - Linear Correction: Glasses Tonometry Right Left Pressure 15 15 Time: 9:07 Color Right Left Color Method: Ishihara Dilation Both eyes: 1.0% Mydriacyl, 2.5% Phenylephrine @ 9:07 Pupils Pupils Right PERRL Left PERRL Visual Olivares Right Left Result Full Extraocular Movement Right Left Result Full Full Base Ophthalmology Exam Addl. Tests Amsler Right Left Amsler Missing lines Normal Main Ophthalmology Exam Slit Lamp Exam Right [...] nl Periphery schisis inf schisis inf IMAGING: Photos Right BRAO IT Left NML FA Right Good flow thru area of previous brao, retinal edema IT, thin areas of vessels off nerve Left Good flow Mild thinning of vessels No blockage seen Needs workup for BRAO IMPRESSION: 1. 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 Nuclear cataract (366.16D) 4. Blepharitis, unspecified (373.00) 5. Unspecified retinoschisis (361.10) PLAN: Pt hospitalized during acute event with carotids done No echo done as of yet, but does have one scheduled for 2 weeks Will follow at this point, and draw stat [facility] labs though doubt very much that dx 5 weeks Letter to GS and PCP I, Dr. Luca Garcia, have performed my own HPI and reviewed the tech's ROS as well. I scribed parts of this documentation while Luca Garcia MD personally performed and dictated details regarding ontiveros components of the service. KIRA Thorne (Scribe) Home phone [phone] documented in this encounter Miscellaneous Notes * Scanned Note-Null - Inpatient, Physician - 03/14/2010 1548 EST documented in this encounter Plan of Treatment Not on file documented as of this encounter Results * SED. RATE:MATTHEWERGREN (02/24/2010 11:06 EST) Sed. Rate Westergren 1 0 - 20 mm/hr [facility] Blood specimen (specimen) 02/24/2010 11:06 EST 02/24/2010 11:08 EST Luca Garcia MD HEMATOLOGY & PF4 ORD ERABLES Performing Organization Address City/[facility] Co de Phone Number [facility] [address] [place] [address] * C-REACTIVE PROTEIN (02/24/2010 11:06 EST) C-Reactive Protein <0.7 <1.0 mg/dl [facility] Blood specimen (specimen) 02/24/2010 11:06 EST 02/24/2010 11:08 EST Luca Garcia MD CHEMISTRY & BLOOD GA S ORDERABLES Performing Organization Address [facility] Co de Phone Number [email or web address] [address] [place] [address] * (ABNORMAL) HEMAGRAM AND DIFFERENTIAL (02/24/2010 11:06 EST) WBC 6.89 4.0 - 10.4 K/cmm [facility] RBC 5.15 4.36 - 5.78 M/cmm [facility] Hemoglobin 17.0 13.8 - 17.3 gm/dl [facility] HCT 48.5 39.5 - 50.2 % [facility] MCV 94 81 - 95 fl [facility] MCH 33.1(H) 27.6 - 33.0 pg [facility] MCHC 35.1 32.8 - 36.4 gm/dl [facility] PLT 166 141 - 320 K/cmm [facility] RDW-CV 12.5 11.8 - 14.1 % [facility] % Neutrophils 67.9 45.5 - 79.7 % [facility] % Lymphocytes 22.2 15.0 - 46.8 % [facility] % Monocytes 8.4 1.8 - 12.0 % [facility] % Eosinophils 1.1 0.6 - 6.9 % [facility] % Basophils 0.4 0.2 - 1.4 % [facility] ABS Neutrophils 4.68 2.20 - 8.85 K/cmm [facility] ABS Lymphs 1.53 1.09 - 3.30 K/cmm [facility] ABS Monocytes 0.58 0.1 - 0.8 K/cmm [facility] ABS Eosinophils 0.08 0.03 - 0.61 K/cmm [facility] ABS Basophils 0.03 0.01 - 0.11 K/cmm [facility] Type of Diff: Automated [facility] Blood specimen (specimen) 02/24/2010 11:06 EST 02/24/2010 11:08 EST Luca Garcia MD PACKAGES & DNA PROBE ORDERABLES [facility] [address] [place] [address] documented in this encounter Visit Diagnoses Diagnosis Arterial branch occlusion of retina Vitreous syneresis Other vitreous opacities Nuclear cataract Senile nuclear sclerosis Blepharitis, unspecified Retinoschisis, unspecified documented in this encounter Historical Medications * This list may reflect changes made after this encounter. Medication Sig Dispensed Refills Start Date End Date aspirin 81 mg EC tablet Take 325 mg by mouth daily. moxifloxacin (VIGAMOX) 0.5 % ophthalmic solution Place into the right eye 4 times daily. 02/24/2010 09/28/2011 added in this encounter Eye Exam Visual Acuity (Snellen - Linear) Right eye Left eye Dist cc 20/20 -2 20/20 -3 Correction: Glasses Tonometry (9:07) Right eye Left eye Pressure 15 15 Pupils Pupils Right eye PERRL Left eye PERRL Visual Olivares Right eye Left eye Full Extraocular Movement Right eye Left eye Full Full Dilation Both eyes: 1.0% Mydriacyl, 2 .5% Phenylephrine @ 9:07 Amsler Right eye Left eye Missing lines Normal Color Right eye Left eye Ishihara Slit Lamp Exam Right eye Left eye Lids/Lashes Blepharitis Blepharitis Conjunctiva/Sclera White and quiet White and mirela et Cornea Clear Clear Anterior Chamber Deep and quiet Deep and quiet Iris Round and reactive Round and marquita ctive Lens 1+ Nuclear sclerosis 1+ Nuclear sclerosis Vitreous Vitreous syneresis Vitreous syne resis Fundus Exam Right eye Left eye C/D Ratio 0.3 0.3 Macula nl nl Vessels brao,no emboli seen nl Periphery schisis inf schisis inf Care Teams Pen Rider Relationship Specialty Start Date End Date Yarelis Shaikh MD PCP - General 02/23/10 documented as of this encounter
--- OUTSIDE RECORDS SUMMARY | 2023-10-29 18:31 | XMS_ITS | Encounter Summary ---
[place] [address] Care Team Providers Care Photography Coordinator Name Role Phone Yarelis Shaikh MD Primary Care Provider Encounter Details Date Type Department Care Team (Latest Contact Info) Description 04/20/2010 1:00 PM EST - 04/20/2010 11:59 PM [facility] Encounter Non-Invasive [place] [phone] CLINIC, Yarelis Corona MD [address] [address] [place] [address] Discharge Disposition: Home Social History Tobacco Use [...] Sig Dispensed Refills Start Date End Date tacrolimus (PROTOPIC) 0.1 % ointment 1 Appl(s) Top Twice daily 04/20/2010 02/07/2011 fluocinolone-shower cap (DERMA-SMOOTHE/FS SCALP OIL) 0.01 % Oil 1 Appl(s) Top QHS 04/20/2010 011 documented as of this encounter Plan of Treatment Upcoming Encounters Date Type Department Care Team (Late st Contact Info) Description 08/05/2024 4:30 PM EDT Office Visit Dermatology at [facility] [address] [place] [address] Rich Ivory MD [facility] [place] [address] documented as of this encounter Visit Diagnoses Not on filedocumented in this encounter Care Teams Photography Coordinator Relationship Specialty Start Date End Date Yarelis Shaikh MD [facility] [address] [place] [address] PCP - General 02/15/10 12/20/17 documented as of this encounter
--- OUTSIDE RECORDS SUMMARY | 2023-10-29 18:31 | XMS_ITS | Encounter Summary ---
Author Organization [facility] Address [address] [place] [address] Care Team Providers Care Car Stereo Installer Name Role Phone Yarelis Shaikh MD Primary Care Provider Unavailable Encounter Details Date Type Department Care Team (Late st Contact Info) Description 01/05/2005 Before PRISM Converted Visit (Maple) [facility] ENT - [facility] [place] [address] [place], [place] [id number] Basilio Varela MD Social History Tobacco Use Types Packs/Day Years Used Date Smoking Tobacco: Never Assessed Sex and Gender Information Value Date Recorded Sex Assigned at Not on file Gender Identity Not on file Sexual Orientation Not on file documented as of this encounter Progress Notes * Basilio Varela MD - 05/27/20091948 EST DIVISION OF OTOLARYNGOLOGY PROGRESS/FOLLOWUP NOTE - 01/13/2005 Of NOTE: Basilio Sheetsts has demonstrated no change in the appearance of or size of the acoustic neuroma. I have counseled him about this and suggested that we just repeat his MRI scan in 1 to 1 ?? years. Signed by Basilio Varela MD 01/20/2005 18:02 Joceline Gonzalez MD Basilio Varela MD D: - Basilio Varela MD P - wlp Job ID: Tape Document ID: [id number] cc: Yarelis Shaikh MD * Basilio Varela MD - 05/27/2009 1942 EST DIVISION OF ENT PROGRESS/FOLLOWUP NOTE - 01/05/2005 S: patient has had a repeat MRI scan. The acoustic neuroma which hed had previously looks somewhat larger to me although his hearing has remained the same. P: I would like have our radiologists review the current scan and its maximum dimensions to determine whether it has increased in size. He has had significant changes in his hearing from the initial discrimination score of 76%. We also had him previously see Dr. Young and the patient elected to have stereotactic radiosurgery. The Director of Stereotactic Radiosurgery, Edin Ernst, has apparently and he has not had any further contact with [facility]. We will wait to see what this shows and if things are relatively stable, we will continue to just observe this. A study from December 2002, two years ago, demonstrated stability in the size of the acoustic neuroma and I will ask Dr. Chavez to reevaluate and give me his opinion. Signed by Basilio Varela MD 01/20/2005 13:21 Joceline Gonzalez MD Basilio Varela MD D: - Basilio Varela MD P - kmb Job ID: tape Document ID: [id number] cc: Yarelis Shaikh MD documented in this encounter Plan of Treatment Not on file documented as of this encounter Procedures Procedure Name Priority Date/Time Associated Diagnosis Comments MR HEAD W/WO CONTRAST 01/05/2005 12:50 EDT documented in this encounter Results * MR HEAD W/WO CONTRAST (01/05/2005 12:50 EDT) Anatomical Region Laterality Modality Other 01/05/2005 12:5 0 EDT Narrative 09/14/2008 1:44 EDT RIGHT ACOUSTIC NEUROMA Scans from December 2004 are only now available for interpretation. Comparison study of December 2002. Sagittal T1 axial T2, diffusion, flare as well as pre- and postcontrast T1 scans of the posterior fossa and coronal postcontrast scans. The ventricles and sulci are within normal limits. Diffusion scan showed no acute ischemic changes. There may be a few right signal subcortical lesions on the FLAIR images. These are upper normal for age and not grossly different given the different MR units used. There is some low signal in the falx on the T2 scans high on the FLAIR images. The coronal postcontrast scans to go through this area do not show any definite enhancement and I believe this is most likely just prominent dural calcification with no definite evidence of meningioma. There is again noted to be an internal auditory canal lesion on the right. This does not appear to be grossly different in size is compared to previous exam of December 2002. Impression: No significant change in the right acoustic schwannomas compared to December 2002 study. No other gross change since prior study. Procedure Note Jeremy Vogel MD - 09/14/2008 RIGHT ACOUSTIC NEUROMA Scans from December 2004 are only now available for interpretation. Comparison study of December 2002. Sagittal T1 axial T2, diffusion, flare as well as pre- and postcontrast T1 scans of the posterior fossa and coronal postcontrast scans. The ventricles and sulci are within normal limits. Diffusion scan showed no acute ischemic changes. There may be a few right signal subcortical lesions on the FLAIR images. These are upper normal for age and not grossly different given the different MR units used. There is some low signal in the falx on the T2 scans high on the FLAIR images. The coronal postcontrast scans to go through this area do not show any definite enhancement and I believe this is most likely just prominent dural calcification with no definite evidence of meningioma. There is again noted to be an internal auditory canal lesion on the right. This does not appear to be grossly different in size is compared to previous exam of December 2002. Impression: No significant change in the right acoustic schwannomas compared to December 2002 study. No other gross change since prior study. Basilio Varela MD IMG MRI ORDERABLES documented in this encounter Visit Diagnoses Not on filedocumented in this encounter Care Teams Car Stereo Installer Relationship Specialty Start Date End Date Yarelis Shaikh MD PCP - General 02/23/10 documented as of this encounter
--- OUTSIDE RECORDS SUMMARY | 2023-10-29 18:31 | XMS_ITS | Clinical Summary ---
Author Organization [facility] Address [address] [place] [address] Care Team Providers Care Account Relationship Manager Name Role Phone Yarelis Shaikh MD Primary Care Provider Unavailable Allergies No known active allergies Medications Medication Sig Dispensed Refills Start Date End Date Status aspirin 81 mg EC tablet Take 325 mg by mouth daily. Active MULTI-VITAMIN ORAL Take by mouth. Ac tive Oycae-[id number]-EPA-Fish Oil (FISH OIL) 1,000 (120-180) mg Cap [...] eyes, mild Blepharitis of both eyes 02/24/2010 Family History Medical History Relation Comments Arthritis Father Cancer Father Cataract Mother Diabetes Mother Macular Degeneration Mother Relation Status Comments Father Mother Social History Tobacco Use Types Packs/Day Years Used Date Smoking Tobacco: Former Cigarettes Q uit: 02/24/1975 Alcohol Use Standard Drinks/Week Comments No 0 (1 standard drink = 0.6 oz pur e alcohol) Sex and Gender Information Value Date Recorded Sex Assigned at Not on file Gender Identity Not on file Sexual Orientation Not on file Obstetrics History Plan of Treatment Health Maintenance Due Date Last Done Comments Hepatitis C Screen 1945 RSV Immunization ( o r 60+ Years) (1 - 1-dose 60+ series) 2006 Fall Risk Screening 12/23/2011 COVID-19 Vaccine (2022-24 season) 2022 Care Teams Account Relationship Manager Relationship Specialty Start Date End Date Yarelis Shaikh MD PCP - General 02/23/10
--- OUTSIDE RECORDS SUMMARY | 2023-10-29 18:31 | XMS_ITS | Encounter Summary ---
Author Organization [facility] [place] [address] Care Team Providers Care Freedom Of Information Officer Name Role Phone Yarelis Shaikh MD Primary Care Provider [phone] Encounter Details Date Type Department Care Team (Late st Contact Info) Description 04/20/2010 11:14 AM [facility] - 04/20/2010 4:00 PM [facility] Hospital Encounter [place] [address] José Manuel Dixon MD [facility] [address] Discharge Disposition: Home Social History Tobacco Use [...] 4:30 PM EDT Office Visit Dermatology at [facility] [address] [place] [address] Rich Ivory MD [facility] [place] [address] documented as of this encounter Visit Diagnoses Not on filedocumented in this encounter Active and Recently Administered Medications Care Teams Freedom Of Information Officer Relationship Specialty Start Date End Date Yarelis Shaikh MD [facility] [address] [place] [address] PCP - General 02/15/10 12/20/17 documented as of this encounter
--- OUTSIDE RECORDS SUMMARY | 2023-10-29 18:31 | XMS_ITS | Encounter Summary ---
Author Organization [facility] [place] [address] Care Team Providers Care Speech Therapy Teacher Name Role Phone Yarelis Shaikh MD Primary Care Provider Encounter Details Date Type Department Care Team (Late st Contact Info) Description 04/20/2010 10:30 AM EST [place] [address] Malik Mcguire MD [facility] [place] [address] Discharge Disposition: Home Social History Tobacco Use [...] 4:30 PM EDT Office Visit Dermatology at [facility] [address] [place] [address] Rich Ivory MD [facility] [address] [place] [address] documented as of this encounter Visit Diagnoses Not on filedocumented in this encounter Care Teams Speech Therapy Teacher Relationship Specialty Start Date End Date Yarelis Shaikh MD [facility] [address] [place] [address] PCP - General 02/15/10 12/20/17 documented as of this encounter
--- OUTSIDE RECORDS SUMMARY | 2023-10-29 18:31 | XMS_ITS | Encounter Summary ---
Author Organization [facility] Address [address] [place] [id number] Care Team Providers Care Sandfill Operator Surface Name Role Phone Unavailable Primary Care Provider Unavailabl e Encounter Details Date Type Department Care Team (Latest Contact Info) Description 01/16/2003 9:06 EDT - 01/16/2003 11:59 EDT Hospital Encounter [address] [address] Basilio Varela MD Discharge Disposition: Auto Discharge [...] Associated Diagnosis Comments MR HEAD W/WO CONTRAST Routine 01/16/2003 10:20 EDT documented in this encounter Results * MR HEAD W/WO CONTRAST (01/16/2003 10:20 EDT) Anatomical Region Laterality Modality Other 01/16/2003 10:2 0 EDT Impressions 11/23/2008 0:49 EDT IMPRESSION: Small, acoustic neuroma or vestibular schwannoma with no significant interval change. /patricio Narrative 11/23/2008 0:49 EDT INTRACANALICULAR ACOUSTIC NEUROMA (KNOWN) R/O RE-EVALUATE SIZE, COMPARE TO LAST FILM MRI OF THE BRAIN WITH & W/O CONTRAST CLINICAL: Intracanalicular acoustic neuroma. Re-evaluate. TECHNICAL FACTORS: Multiplanar T1 and T2 weighted fast spin-echo, gradient-echo and echoplanar diffusion-weighted imaging of the brain, as well as thin section, small field of view, pre- and postcontrast enhanced imaging of the seventh and eighth nerve complexes. FINDINGS: There is, indeed, an intracanalicular vestibular schwannoma or acoustic neuroma on the right, measuring 7mm x 9mm. On the previous study, the acoustic neuroma measured 10 x 6.4mm. It now measures approximately the same, depending on the position it's measured from. It has not changed significantly. Procedure Note BraffFrancisco MD, MD - 11/23/2008 INTRACANALICULAR ACOUSTIC NEUROMA (KNOWN) R/O RE-EVALUATE SIZE, COMPARE TO LAST FILM MRI OF THE BRAIN WITH & W/O CONTRAST CLINICAL: Intracanalicular acoustic neuroma. Re-evaluate. TECHNICAL FACTORS: Multiplanar T1 and T2 weighted fast spin-echo, gradient-echo and echoplanar diffusion-weighted imaging of the brain, as well as thin section, small field of view, pre- and postcontrast enhanced imaging of the seventh and eighth nerve complexes. FINDINGS: There is, indeed, an intracanalicular vestibular schwannoma or acoustic neuroma on the right, measuring 7mm x 9mm. On the previous study, the acoustic neuroma measured 10 x 6.4mm. It now measures approximately the same, depending on the position it's measured from. It has not changed significantly. IMPRESSION IMPRESSION: Small, acoustic neuroma or vestibular schwannoma with no significant interval change. /patricio Basilio Varela MD IMG MRI ORDERABLES documented in this encounter Visit Diagnoses Not on filedocumented in this encounter
--- OUTSIDE RECORDS SUMMARY | 2023-10-29 18:31 | XMS_ITS | Encounter Summary ---
Author Organization [facility] Address [address] [place] [address] Care Team Providers Care Disability Liaison Officer Name Role Phone Yarelis Shaikh MD Primary Care Provider Unavailable Encounter Details Date Type Department Care Team (Late st Contact Info) Description 02/24/2010 10:41 EST - 02/24/2010 23:59 EST Hospital Encounter [address] [address] Luca Garcia MD [address] [place] [address], [address] [place] [phone] Arterial branch occlusion of retina Discharge Disposition: Home or Self Care Social History Tobacco Use Types Packs/Day Years Used Date Smoking Tobacco: Former Cigarettes Q uit: 02/24/1975 Alcohol Use Standard Drinks/Week Comments No 0 (1 standard drink = 0.6 oz pur e alcohol) Sex and Gender Information Value Date Recorded Sex Assigned at Not on file Gender Identity Not on file Sexual Orientation Not on file documented as of this encounter Medications at Time of Discharge Medication Sig Dispensed Refills Start Date End Date aspirin 81 mg EC tablet Take 325 mg by mouth daily. moxifloxacin (VIGAMOX) 0.5 % ophthalmic solution Place into the right eye 4 times daily. 02/24/2010 09/28/2011 documented as of this encounter Discharge Disposition Disposition Code Departure Means Destination Home or Self Senior Living documented in this encounter Plan of Treatment Not on file documented as of this encounter Procedures Procedure Name Priority Date/Time Associated Diagnosis Comments SED RATE STAT 02/24/2010 11:06 EST Arterial branch occlusion of retina COMPLETE BLOOD COUNT AND DIFFERENTIAL STAT 02/24/2010 11:06 EST Arterial branch occlusion of retina C REACTIVE PROTEIN STAT 02/24/2010 11 :06 EST Arterial branch occlusion of retina documented in this encounter Results * SED. RATE:WESTERGREN (02/24/2010 11:06 EST) Pathologist [facility] Sed. Rate Westergren 1 0 - 20 mm/hr [facility] Blood specimen (specimen) 02/24/2010 11:06 EST 02/24/2010 11:08 EST Luca Garcia MD HEMATOLOGY & PF4 ORD ERABLES Performing Organization Address [facility] Co de Phone Number [facility] [address] [place] [address] * C-REACTIVE PROTEIN (02/24/2010 11:06 EST) Pathologist [facility] C-Reactive Protein <0.7 <1.0 mg/dl [facility] Blood specimen (specimen) 02/24/2010 11:06 EST 02/24/2010 11:08 EST Luca Garcia MD CHEMISTRY & BLOOD GA S ORDERABLES Performing Organization Address [facility] de Phone Number [facility] [address] [place] [address] * (ABNORMAL) HEMAGRAM AND DIFFERENTIAL (02/24/2010 11:06 EST) Pathologist [facility] WBC 6.89 4.0 - 10.4 K/cmm [facility] RBC 5.15 4.36 - 5.78 M/cmm [facility] Hemoglobin 17.0 13.8 - 17.3 gm/dl [facility] HCT 48.5 39.5 - 50.2 % [facility] MCV 94 81 - 95 fl [facility] MCH 33.1(H) 27.6 - 33.0 pg [facility] MCHC 35.1 32.8 - 36.4 gm/dl [facility] PLT 166 141 - 320 K/cmm [...] ABS Basophils 0.03 0.01 - 0.11 K/cmm [facility] Type of Diff: Automated [facility] Blood specimen (specimen) 02/24/2010 11:06 EST 02/24/2010 11:08 EST Luca Garcia MD PACKAGES & DNA PROBE ORDERABLES [facility] [address] [place] [address] documented in this encounter Visit Diagnoses Diagnosis Arterial branch occlusion of retina documented in this encounter Care Teams Disability Liaison Officer Relationship Specialty Start Date End Date Yarelis Shaikh MD PCP - General 02/23/10 documented as of this encounter
--- OUTSIDE RECORDS SUMMARY | 2023-10-29 18:31 | XMS_ITS ---
Author Organization [facility] [address] Address [address] [place], [place] [id number] Care Team Providers Care Pile Driver Operator Helper Name Role Phone PORSHA DAVEY,MANDY PEREA Primary Care Provider REASON FOR VISIT AWE WITH LABS @511 Encounters Encounter Location Date Provider Diagnosis [facility] [address] [place], [place] [id number] 05/12/2022 MANDY STORY PLAN OF TREATMENT No Information Progress Notes * XOCHITL MONTANA MDOB: [birth year] (77 yo M)Acc No.[id number]:05/12/2022 Progress Note Patient:??OMEGA, XOCHITL Wolfe Provider:??Mandy Story MD :1945?Age:76 Y?Sex:Ma le Date:05/12/2022 Address:[address] [place] [address], [id number] Subjective: * Chief Complaints: * ?1. AWE WITH LABS @511. * Medical History:?? * Implants:?? Objective: Assessment: Plan: * Treatment: * Billing Information: * Visit Code:?? * Procedure Codes:?? * Sign off status: Pending * Provider:??Mandy Story MD Date:??04/26
--- OUTSIDE RECORDS SUMMARY | 2023-10-29 18:31 | XMS_ITS | Encounter Summary ---
Author Organization [facility] Address [facility] [place] [address] Care Team Providers Care Tray Delivery Aide Name Role Phone Yarelis Shaikh MD Primary Care Provider [phone] Encounter Details Date Type Department Care Team (Latest Contact Info) Description 04/20/2010 8:43 AM EST - 04/20/2010 11:59 PM [facility] Hospital Encounter XRay at [address] [place] [address] CLINIC, Yarelis Corona MD [address] [place] [address] Discharge Disposition: Home Social History [...] at [facility] [address] [place] [address] Rich Ivory MD [facility] [address] [place] [address] documented as of this encounter Visit Diagnoses Not on filedocumented in this encounter Care Teams Tray Delivery Aide Relationship Specialty Start Date End Date Yarelis Shaikh MD [facility] [address] [place] [address] PCP - General 02/15/10 12/20/17 documented as of this encounter
--- OUTSIDE RECORDS SUMMARY | 2023-10-29 18:31 | XMS_ITS | Encounter Summary ---
Author Organization [facility] Address [address] [place] [address] Care Team Providers Care Filter Machine Operator Name Role Phone Unavailable Primary Care Provider Unavailabl e Encounter Details Date Type Department Care Team (Late st Contact Info) Description 01/16/2007 9:13 EDT - 01/16/2007 11:59 EDT Hospital Encounter [address] [address] Nixon Hernandez MD [address] [facility] [address] [place] [phone] Discharge Disposition: Auto Discharge Social History Tobacco [...] Associated Diagnosis Comments MR HEAD W/WO CONTRAST 01/16/2007 10:48 EDT documented in this encounter Results * MR HEAD W/WO CONTRAST (01/16/2007 10:48 EDT) Anatomical Region Laterality Modality Other 01/16/2007 10:4 8 EDT Narrative 09/14/2008 5:01 EDT right acoustic neuroma MR HEAD WWO/CONTRAST ??Jan 16, 2007 10:48:00 AM Signs and Symptoms:: ??right acoustic neuroma Technique: Multiplanar T1 and T2-weighted fast spin-echo imaging performed before and after intravenous contrast administration, and utilizing high resolution technique. The study is compared with one from December 2004. Findings: 1. The previous study demonstrated a 6.4 x 8.9 mm enhancing lesion at the level of the fundus of the right internal auditory canal. 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 2. As measured today, the lesion is similar in size and has not changed significantly. 3. There is, however, a new finding, seen on the T2 fast spin-echo sequence in the transaxial plane and on the T2 FLAIR sequence. This consists of high signal intensity within the mesial temporal lobe extending into the uncus on the left side. Does this patient have a seizure disorder? The postcontrast sequence does not completely cover this region slight cannot be certain whether there is enhancement. It is unlikely that this represents artifact since it is also identified on the T2 fast spin-echo sequence, as well as on the fast FLAIR sequence. In reviewing the previous examination from 2 years ago I do not see evidence of this finding. Impression: 1. Little or no interval change in the previously described right vestibular schwannoma. 2. Abnormal signal intensity in the left mesial temporal lobe seen on 2 sequences today. Differential diagnosis for this includes infiltrating neoplasm, and therefore I would recommend a high resolution study on our 3 [facility] unit with perfusion weighted imaging, and spectroscopy see if we can both confirm and evaluate this process more fully. Procedure Note Francisco Chavez MD - 09/14/2008 right acoustic neuroma MR HEAD WWO/CONTRAST Jan 16, 2007 10:48:00 AM Signs and Symptoms:: right acoustic neuroma Technique: Multiplanar T1 and T2-weighted fast spin-echo imaging performed before and after intravenous contrast administration, and utilizing high resolution technique. The study is compared with one from December 2004. Findings: 1. The previous study demonstrated a 6.4 x 8.9 mm enhancing lesion at the level of the fundus of the right internal auditory canal. 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 2. As measured today, the lesion is similar in size and has not changed significantly. 3. There is, however, a new finding, seen on the T2 fast spin-echo sequence in the transaxial plane and on the T2 FLAIR sequence. This consists of high signal intensity within the mesial temporal lobe extending into the uncus on the left side. Does this patient have a seizure disorder? The postcontrast sequence does not completely cover this region slight cannot be certain whether there is enhancement. It is unlikely that this represents artifact since it is also identified on the T2 fast spin-echo sequence, as well as on the fast FLAIR sequence. In reviewing the previous examination from 2 years ago I do not see evidence of this finding. Impression: 1. Little or no interval change in the previously described right vestibular schwannoma. 2. Abnormal signal intensity in the left mesial temporal lobe seen on 2 sequences today. Differential diagnosis for this includes infiltrating neoplasm, and therefore I would recommend a high resolution study on our 3 [facility] unit with perfusion weighted imaging, and spectroscopy see if we can both confirm and evaluate this process more fully. Nixon Hernandez MD [facility] ORDERAB LES documented in this encounter Visit Diagnoses Not on filedocumented in this encounter
--- OUTSIDE RECORDS SUMMARY | 2023-10-29 18:31 | XMS_ITS | Encounter Summary ---
Author Organization [facility] Address [address] [place] [address] Care Team Providers Care Breakfast Bar Attendant Name Role Phone Unavailable Primary Care Provider Unavailabl e Encounter Details Date Type Department Care Team (Latest Contact Info) Description 01/24/2007 10:21 EDT - 01/24/2007 11:59 EDT Hospital Encounter [facility] [address] [place] [address] Yarelis Shaikh MD Discharge Disposition: Auto Discharge [...] Name Priority Date/Time Associated Diagnosis Comments MR HEAD/SPECT W/WO CONTRAST 01/24/2007 14:57 EDT documented in this encounter Results * MR BRAIN/SPEC W/WO CONTRAST (01/24/2007 14:57 EDT) Anatomical Region Laterality Modality Other 01/24/2007 14:5 7 EDT Narrative 09/14/2008 2:27 EDT abnormal signal intensity left temporal lobe MR BRAIN/SPEC WW0 CONTRAST ??Jan 24, 2007 2:57:00 PM Signs and Symptoms:: ??abnormal signal intensity left temporal lobe Technique: Multiplanar T1 and T2-weighted fast spin echo imaging of the brain performed on our 3 [facility] unit, with associated single Voxel MR spectroscopy, and dynamic perfusion imaging. Findings: 1. Compared with the previous study from January 16, once again identified is subtle asymmetry of signal intensity in the left temporal lobe. This is actually more obvious on the previous examination which was performed on our 1[facility] MRI unit. On the previous examination there was no definite abnormal enhancement. 2. The dynamic perfusion scan today demonstrates asymmetry in the temporal lobes. This may relate to greater prominence of the left middle cerebral artery in the right. However an concerned that there is a small amount of asymmetrical increased capillary finding in the region of the uncus on the left side. 3. The MR spectroscopy is of concern. There is increased choline to LUCIANA ratio, and there is a 2 to 1 increase of choline over creatine. 4. Detailed thin section coronal imaging utilizing multiple pulse sequences demonstrates little in the way of asymmetry. The 3-D data set, however demonstrates subtle mass effect upon the middle cerebral peduncle on the left side. Overall I am suspicious there may be an infiltrating neoplasm in the left temporal lobe. 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 This concern is based, for the most part on the abnormal MR spectroscopy. There is also the subtle suggestion of minimal mass effect at the level of the uncus and middle cerebral peduncle. This clearly needs to be followed up. Addendum Begins MR BRAIN/SPEC WW0 CONTRAST ??Jan 24, 2007 2:57:00 PM Signs and Symptoms:: ??abnormal signal intensity left temporal lobe Addendum: In addition to the findings in the left temporal lobe as described above, the intracanalicular right acoustic neuroma or vestibular schwannoma is unchanged in size and appearance compared to previous study. Addendum Ends Procedure Note Francisco Chavez MD - 09/14/2008 abnormal signal intensity left temporal lobe MR BRAIN/SPEC WW0 CONTRAST Jan 24, 2007 2:57:00 PM Signs and Symptoms:: abnormal signal intensity left temporal lobe Technique: Multiplanar T1 and T2-weighted fast spin echo imaging of the brain performed on our 3 [facility] unit, with associated single Voxel MR spectroscopy, and dynamic perfusion imaging. Findings: 1. Compared with the previous study from January 16, once again identified is subtle asymmetry of signal intensity in the left temporal lobe. This is actually more obvious on the previous examination which was performed on our 1[facility] unit. On the previous examination there was no definite abnormal enhancement. 2. The dynamic perfusion scan today demonstrates asymmetry in the temporal lobes. This may relate to greater prominence of the left middle cerebral artery in the right. However an concerned that there is a small amount of asymmetrical increased capillary finding in the region of the uncus on the left side. 3. The MR spectroscopy is of concern. There is increased choline to LUCIANA ratio, and there is a 2 to 1 increase of choline over creatine. 4. Detailed thin section coronal imaging utilizing multiple pulse sequences demonstrates little in the way of asymmetry. The 3-D data set, however demonstrates subtle mass effect upon the middle cerebral peduncle on the left side. Overall I am suspicious there may be an infiltrating neoplasm in the left temporal lobe. 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 This concern is based, for the most part on the abnormal MR spectroscopy. There is also the subtle suggestion of minimal mass effect at the level of the uncus and middle cerebral peduncle. This clearly needs to be followed up. Addendum Begins MR BRAIN/SPEC WW0 CONTRAST Jan 24, 2007 2:57:00 PM Signs and Symptoms:: abnormal signal intensity left temporal lobe Addendum: In addition to the findings in the left temporal lobe as described above, the intracanalicular right acoustic neuroma or vestibular schwannoma is unchanged in size and appearance compared to previous study. Addendum Ends Yarelis Shaikh MD [facility] MRI ORDERAB LES documented in this encounter Visit Diagnoses Not on filedocumented in this encounter
[2023-10-29 19:26] LABS: HCT 49.2 % (40.0-50.0); HGB 16.7 g/dL (13.5-17.5); MCH 32.2 pg (27.0-33.0); MCHC 33.9 % (32.0-36.0); MCV 95 fL (80-95); RBC 5.19 10^6/uL (4.36-5.78); RDW 11.5 % (11.8-14.1); RDW-SD 39.8 fL; WBC 6.94 10^3/uL (4.4-10.8)
[2023-10-29 20:16] LABS: ALT 53 U/L (16-63); AST 30 U/L (15-37); Albumin 4.4 g/dL (3.4-5.0); Alkaline Phosphatase 74 U/L (46-116); Anion Gap 9.5 mmol/L (3-11); BUN 19 mg/dL (7-18); Bilirubin, Total 0.51 mg/dL (0.2-1.0); CO2 28.5 mmol/L (21.0-32.0); CREATININE 1.1 mg/dL (0.70-1.30); Calcium 9.8 mg/dL (8.5-10.1); Calculated LDL 30 mg/dL (<100); Chloride 104 mmol/L (98-107); Cholesterol 97 mg/dL (<200); Creatine Kinase 100 U/L (39-308); Estimated GFR 69.57 (mL/min/1.73m2); Glucose 93 mg/dL (74-106); HDL Cholesterol 45 mg/dL (40-60); Potassium 4.3 mmol/L (3.5-5.1); Sodium 142 mmol/L (136-145); Total Protein 7.6 g/dL (6.4-8.2); Triglyceride 112 mg/dL (<150)
[2023-11-04 16:04] LABS: Testosterone, Total 347 ng/dL (240-950)
== END 2023-10-29 18:27 | disposition home or self-care (01) ==
LOC: NCHCN 18:26
PROVIDERS: Visit Provider Internal Medicine
DX: Z00.00 Encounter for general adult medical examination without abnormal findings (principal); F52.21 Male erectile disorder; F10.11 Alcohol abuse, in remission; D69.6 Thrombocytopenia, unspecified; R79.89 Other specified abnormal findings of blood chemistry
CPT/HCPCS: 80053; 80061; 82550; 84403; 85027

== ENCOUNTER 2024-10-30 14:47 | Outpatient (REF) | payer MEDICARE, SELFPAY ==
[2024-10-30 19:16] LABS: Abs Immature Grans 0.01 10^3/uL (0.0-0.06); HCT 46.3 % (40.0-50.0); HGB 16.0 g/dL (13.5-17.5); Immature Grans % 0.2 %; MCH 31.8 pg (27.0-33.0); MCHC 34.6 % (32.0-36.0); MCV 92 fL (80-95); MPV 11.0 fL (8.0-11.0); Platelet Count 150 10^3/uL (130-400); RBC 5.03 10^6/uL (4.36-5.78); RDW 11.5 % (11.8-14.1); RDW-SD 38.5 fL; WBC 5.59 10^3/uL (4.4-10.8)
== END 2024-10-30 14:48 | disposition home or self-care (01) ==
LOC: NCHCN 14:47
PROVIDERS: Visit Provider Internal Medicine
DX: D69.6 Thrombocytopenia, unspecified (principal)
CPT/HCPCS: 85025